=== PATIENT | female | born 1990 | race Caucasian/White ===

== ENCOUNTER 2017-05-27 18:31 | Observation (INO) | payer OTHER ==
--- NOTE | 2017-05-27 19:32 | EDPHY ---
H & P Time Seen by Provider: 05/27/17 18:40 HPI/ROS: CHIEF COMPLAINT: Abdominal pain HISTORY OF PRESENT ILLNESS: 27-year-old female presents to the emergency department with onset of abdominal pain 2 days ago. She states initially she was feeling bloated had generalized mild diffuse pain and then today started localizing in the right lower quadrant. She feels that the pain is getting worse. No nausea or vomiting. No urinary symptoms. No back pain. No reported trauma. No chest pain or difficulty breathing. Her last menstrual period was 2 weeks ago and she denies . She does not take oral contraceptive pills. REVIEW OF SYSTEMS: Constitutional: No fever, no chills. Eyes: No double or blurry vision. ENT: No sore throat. Respiratory: No cough, no shortness of breath. Cardiac: No chest pain. Gastrointestinal: Abdominal pain as above. No vomiting or diarrhea. Genitourinary: No dysuria. Musculoskeletal: No neck or back pain. Skin: No rashes. Neurological: No headache. Past Medical/Surgical History: Negative Social History: Single Smoking Status: Never smoked Physical Exam: General Appearance: Alert, no distress. Tearful. Afebrile. Eyes: Pupils equal and round. Extraocular motions are all intact. ENT: Mouth: Mucous membranes moist. Respiratory: No wheezing, rhonchi, or rales, lungs are clear to auscultation. Cardiovascular: Regular rate and rhythm. Gastrointestinal: Abdomen is soft. She has mild tenderness with palpation in her right lower quadrant. She has no rebound, guarding or masses noted. No CVA tenderness bilaterally. Neurological: Alert and oriented x 3, cranial nerves II through XII grossly intact Skin: Warm and dry, no rashes. Musculoskeletal: Nontender to palpate along the cervical, thoracic or lumbar spine. Neck is supple. Extremities: Full range of motion and no peripheral edema. Psychiatric: Patient is oriented X 3, there is no agitation. Constitutional: Initial Vital Signs Temperature (C) 36.9 C 05/27/17 18:34 Heart Rate 88 05/27/17 18:34 Respiratory Rate 18 05/27/17 18:34 Blood Pressure 96/63 L 05/27/17 18:34 O2 Sat (%) 100 05/27/17 18:34 O2 Delivery Mode Room Air Allergies/Adverse Reactions: Penicillins Allergy (Verified 05/27/17 18:36) Home Medications: Medication Instructions Recorded NK [No Known Home Meds] 05/27/17 Medical Decision Making - Diagnostics Imaging Results: Imaging Impressions Abdomen Ultrasound 05/27/17 19:28 Impression: Sonographic features are consistent with acute appendicitis. Findings were discussed with JUSTINA FRITZ PA-C at 20:07, on 05/27/2017. Pelvic/Renal Ultrasound 05/27/17 19:28 Impression: 1. Normal appearance of the uterus and ovaries with no torsion or adnexal mass. 2. Free fluid in the pelvis. Note: The patient also has sonographic features consistent with appendicitis with some periappendiceal free fluid. Findings were discussed with JUSTINA FRITZ PA-C at 20:14, on 05/27/2017. Imaging: Discussed imaging studies w/ housecalls nurse Radiologist ED Course/Re-evaluation: 27-year-old female presents to the emergency department with abdominal pain. I was concerned about possible acute appendicitis versus possible ovarian cyst. Pelvic ultrasound was unremarkable. Limited abdominal ultrasound revealed enlarged appendix measuring 12 mm which was not compressible. Patient had a white blood cell count of just over 10,000. She was kept NPO. I spoke with the on-call general surgeon, Dr. Sears, who agreed to take this patient to the operating room. Patient was given 1 g of Invanz IV in the emergency department. She was kept NPO. Differential Diagnosis: Including but not limited to acute appendicitis, ovarian cyst, ovarian torsion, urinary tract infection, pyelonephritis, kidney stone - Data Points Laboratory Results: Laboratory Results 05/27/17 19:25 05/27/17 19:25 05/27/17 05/27/17 05/27/17 19:25 19:25 19:25 WBC RBC Hgb Hct MCV MCH MCHC RDW Plt Count MPV Neut % (Auto) Lymph % (Auto) [place] % (Auto) Eos % (Auto) Baso % (Auto) Nucleat RBC Rel Count Absolute Neuts (auto) Absolute Lymphs (auto) Absolute Monos (auto) Absolute Eos (auto) Absolute Basos (auto) Absolute Nucleated RBC Immature Gran % Immature Gran # Sodium 145 mEq/L H mEq/L (134-144) Potassium 4.3 mEq/L mEq/L (3.5-5.2) Chloride 106 mEq/L mEq/L (97-110) Carbon Dioxide 25 mEq/l mEq/l (22-31) Anion Gap 14 mEq/L mEq/L (8-16) BUN 10 mg/dL mg/dL (7-23) Creatinine 0.7 mg/dL mg/dL (0.6-1.0) Estimated GFR > 60 Glucose 84 mg/dL mg/dL (70-100) Calcium 9.4 mg/dL mg/dL (8.5-10.4) Beta HCG, Qual NEGATIVE Urine Color YELLOW Urine Appearance HAZY Urine pH 6.0 (5.0-7.5) Ur Specific [place] 1.021 (1.002-1.030) Urine Protein NEGATIVE (NEGATIVE) Urine Ketones TRACE H (NEGATIVE) Urine Blood NEGATIVE (NEGATIVE) Urine Nitrate NEGATIVE (NEGATIVE) Urine Bilirubin NEGATIVE (NEGATIVE) Urine Urobilinogen NEGATIVE EU EU (0.2-1.0) Ur Leukocyte Esterase NEGATIVE (NEGATIVE) Urine RBC 1-3 /hpf /hpf (0-3) Urine WBC 1-3 /hpf /hpf (0-3) Ur Epithelial Cells TRACE /lpf /lpf (NONE-1+) Urine Mucus 3+ /lpf H /lpf (NONE-1+) Urine Glucose NEGATIVE (NEGATIVE) 05/27/17 19:25 WBC 10.83 10^3/uL H 10^3/uL (3.80-9.50) RBC 4.33 10^6/uL 10^6/uL (4.18-5.33) Hgb 14.2 g/dL g/dL (12.6-16.3) Hct 40.1 % % (38.0-47.0) MCV 92.6 fL fL (81.5-99.8) MCH 32.8 pg pg (27.9-34.1) MCHC 35.4 g/dL g/dL (32.4-36.7) RDW 11.9 % % (11.5-15.2) Plt Count 232 10^3/uL 10^3/uL (150-400) MPV 10.2 fL fL (8.7-11.7) Neut % (Auto) 68.1 % % (39.3-74.2) Lymph % (Auto) 22.1 % % (15.0-45.0) [place] % (Auto) 8.2 % % (4.5-13.0) Eos % (Auto) 1.0 % % (0.6-7.6) Baso % (Auto) 0.3 % % (0.3-1.7) Nucleat RBC Rel Count 0.0 % % (0.0-0.2) Absolute Neuts (auto) 7.38 10^3/uL H 10^3/uL (1.70-6.50) Absolute Lymphs (auto) 2.39 10^3/uL 10^3/uL (1.00-3.00) Absolute Monos (auto) 0.89 10^3/uL H 10^3/uL (0.30-0.80) Absolute Eos (auto) 0.11 10^3/uL 10^3/uL (0.03-0.40) Absolute Basos (auto) 0.03 10^3/uL 10^3/uL (0.02-0.10) Absolute Nucleated RBC 0.00 10^3/uL 10^3/uL (0-0.01) Immature Gran % 0.3 % % (0.0-1.1) Immature Gran # 0.03 10^3/uL 10^3/uL (0.00-0.10) Sodium Potassium Chloride Carbon Dioxide Anion Gap BUN Creatinine Estimated GFR Glucose Calcium Beta HCG, Qual Urine Color Urine Appearance Urine pH Ur Specific [place] Urine Protein Urine Ketones Urine Blood Urine Nitrate Urine Bilirubin Urine Urobilinogen Ur Leukocyte Esterase Urine RBC Urine WBC Ur Epithelial Cells Urine Mucus Urine Glucose Medications Given: Hydrocodone Bitart/Acetaminophen ([place] 5/325) 1 - 2 tab PO Q4HRS PRN PRN Reason: Pain, Moderate Able to Take PO Stop: 06/06/17 22:05 Last Admin: 05/28/17 01:37 Dose: 1 tab Potassium Chloride/Dextrose/Sod Cl (D5w 1/2 Ns W/ 20 Kcl/L) 1,000 mls @ 100 mls /hr IV CONT TOSHIA Stop: 11/23/17 22:14 Last Admin: 05/27/17 23:01 Dose: 1,000 mls Ketorolac Tromethamine (Toradol) 15 mg IVP Q6HRS TOSHIA Stop: 06/02/17 00:00 Last Admin: 05/27/17 23:30 Dose: Not Given Discontinued Medications Bupivacaine HCl (Sensorcaine 0.25% Sdv) Confirm Administered Dose 30 ml .ROUTE .STK-MED ONE Stop: 05/27/17 21:00 Last Admin: 05/27/17 21:49 Dose: 20 ml Epinephrine HCl (Epinephrine) Confirm Administered Dose 1 mg .ROUTE .STK-MED ONE Stop: 05/27/17 21:00 Last Admin: 05/27/17 21:46 Dose: 0.125 mg Fentanyl (Sublimaze) 75 mcg IVP EDNOW ONE Stop: 05/27/17 19:41 Last Admin: 05/27/17 20:05 Dose: 75 mcg Fentanyl (Sublimaze) 25 - 100 mcg IVP Q5M PRN PRN Reason: PACU, IMMEDIATE Pain control Stop: 05/27/17 22:35 Last Admin: 05/27/17 22:40 Dose: 50 mcg Sodium Chloride (Ns) 1,000 mls @ 0 mls/hr IV EDNOW ONE; Wide Open PRN Reason: Protocol Stop: 05/27/17 19:41 Last Admin: 05/27/17 20:06 Dose: 1,000 mls Ertapenem 1 gm/ Sodium (Chloride) 100 mls @ 200 mls/hr IV EDNOW ONE PRN Reason: Protocol Stop: 05/27/17 20:44 Last Admin: 05/27/17 20:26 Dose: 100 mls Lorazepam (Ativan Injection) 1 mg IVP ONCE ONE Stop: 05/28/17 01:46 Last Admin: 05/28/17 01:37 Dose: 1 mg Ondansetron HCl (Zofran) 4 mg IVP EDNOW ONE Stop: 05/27/17 19:41 Last Admin: 05/27/17 20:06 Dose: 4 mg Departure - Departure Disposition: To OP Cath/Surgery Clinical Impression: Acute appendicitis Qualifiers: Acute appendicitis type: with localized peritonitis Qualified Code(s): K35.3 - Acute appendicitis with localized peritonitis Condition: Good
[2017-05-27] MEDS ORDERED: ONDANSETRON 4 MG/2 ML VIAL IVP ONE (19:40)
[2017-05-27] MEDS ORDERED: fentaNYL 100 MCG/2 ML INJ IVP ONE (19:40)
[2017-05-27] MEDS ORDERED: NS 1,000 ML IV ONE (19:40)
[2017-05-27 19:41] LABS: % IMMATURE GRANULYOCYTES 0.3 % (0.0-1.1); ABSOLUTE IMMATURE GRANULOCYTES 0.03 10^3/uL (0.00-0.10); ADD DIFF? NO; ADD MORPH? NO; ADD SCAN? NO; ATYPICAL LYMPHOCYTE FLAG 20 (0-99); FRAGMENT RBC FLAG 0 (0-99); HEMATOCRIT 40.1 % (38.0-47.0); HEMOGLOBIN 14.2 g/dL (12.6-16.3); LEFT SHIFT FLG 0 (0-99); LIPEMIA HEMOLYSIS FLAG 90 (0-99); MEAN CELL HEMOGLOBIN 32.8 pg (27.9-34.1); MEAN CELL HEMOGLOBIN CONCENTR. 35.4 g/dL (32.4-36.7); MEAN CELL VOLUME 92.6 fL (81.5-99.8); MEAN PLATELET VOLUME 10.2 fL (8.7-11.7); PLATELET CLUMPS FLAG 0 (0-99); PLATELET COUNT 232 10^3/uL (150-400); RED BLOOD CELL COUNT 4.33 10^6/uL (4.18-5.33); RED CELL DISTRIBUTION WIDTH 11.9 % (11.5-15.2)
[2017-05-27 19:47] LABS: COLOR YELLOW; LEUKOCYTE ESTERASE,URINE NEGATIVE (NEGATIVE); NITRITE,URINE NEGATIVE (NEGATIVE)
[2017-05-27 19:55] LABS: MUCUS 3+ /lpf (NONE-1+)
[2017-05-27 19:58] LABS: ANION GAP 14 mEq/L (8-16); CALCIUM 9.4 mg/dL (8.5-10.4); CARBON DIOXIDE 25 mEq/l (22-31); CHLORIDE 106 mEq/L (97-110); CREATININE 0.7 mg/dL (0.6-1.0); GLOMERULAR FILTRATION RATE > 60; GLUCOSE 84 mg/dL (70-100); POTASSIUM 4.3 mEq/L (3.5-5.2); SODIUM 145 mEq/L (134-144)
[2017-05-27] MEDS ORDERED: ONDANSETRON 4 MG/2 ML VIAL ONE ×2 (20:04→21:04)
[2017-05-27] MEDS ORDERED: fentaNYL 100 MCG/2 ML INJ ONE ×5 (20:04→22:38)
[2017-05-27] MEDS ORDERED: ERTAPENEM 1 GM in NS 100 ML IV ONE (20:15)
[2017-05-27] MEDS ORDERED: PROPOFOL 200 MG/20 ML VIAL ONE (20:58)
--- NOTE | 2017-05-27 20:58 | PDGENHP ---
History and Physical - Chief Complaint Abdominal pain - History of Present Illness Otherwise healthy 27yo F presents to the ED with pain in abbey abdomen since evening. Pain has waxed and waned since then but worsened today and also relocated to the RLQ. It is sharp, 7/10, non-radiating and worse with movement. It is better with IV narcotics. She denies fevers but does endorse having chills History Information - Allergies/Home Medication List Allergies/Adverse Reactions: Penicillins Allergy (Verified 05/27/17 18:36) Home Medications: NK [No Known Home Meds] 05/27/17 [Last Taken Unknown] I have personally reviewed and updated: family history, medical history, social history, surgical history - Past Medical History Additional medical history: anxiety - Surgical History Additional surgical history: wisdom teeth removal - Family History Positive for: non-pertinent - Social History Smoking Status: Never smoked Alcohol Use: Occasionally Drug Use: Marijuana Review of Systems Review of Systems: ROS: 10pt was reviewed & negative except for what was stated in HPI & below Physical Exam Physical Exam: Temp Pulse Resp BP Pulse Ox 36.7 C 74 16 120/86 H 97 05/27/17 20:40 05/27/17 20:40 05/27/17 20:40 05/27/17 20:40 05/27/17 20:40 Constitutional: no apparent distress, appears nourished Eyes: PERRL, anicteric sclera Ears, Nose, Mouth, Throat: moist mucous membranes, hearing normal Cardiovascular: regular rate and rhythym, no murmur, rub, or gallop Respiratory: no respiratory distress, no rales or rhonchi Gastrointestinal: normoactive bowel sounds, other (TTP in the RLQ at [facility]) Skin: warm, normal color Musculoskeletal: full muscle strength, no muscle tenderness Neurologic: AAOx3, sensation intact bilaterally Psychiatric: interacting appropriately, not anxious Lymph, Heme, Immunologic: no cervical LAD, no supraclavicular LAD Lab Data & Imaging Review 05/27/17 19:25 05/27/17 19:25 WBC 10.83 10^3/uL (3.80-9.50) H 05/27/17 19:25 RBC 4.33 10^6/uL (4.18-5.33) 05/27/17 19:25 Hgb 14.2 g/dL (12.6-16.3) 05/27/17 19:25 Hct 40.1 % (38.0-47.0) 05/27/17 19:25 MCV 92.6 fL (81.5-99.8) 05/27/17 19:25 MCH 32.8 pg (27.9-34.1) 05/27/17 19: MCHC 35.4 g/dL (32.4-36.7) 05/27/17 19:25 RDW 11.9 % (11.5-15.2) 05/27/17 19:25 Plt Count 232 10^3/uL (150-400) 05/27/17: MPV 10.2 fL (8.7-11.7) 05/27/17 19:25 Neut % (Auto) 68.1 % (39.3-74.2) 05/27/17: Lymph % (Auto) 22.1 % (15.0-45.0) 05/27/17 19:25 [place] % (Auto) 8.2 % (4.5-13.0) 05/27/17 19:25 Eos % (Auto) 1.0 % (0.6-7.6) 05/27/17 19: Baso % (Auto) 0.3 % (0.3-1.7) 05/27/17 19:25 Nucleat RBC Rel Count 0.0 % (0.0-0.2) 05/27/17 19: Absolute Neuts (auto) 7.38 10^3/uL (1.70-6.50) H 05/27/17 19:25 Absolute Lymphs (auto) 2.39 10^3/uL (1.00-3.00) 05/27/17 19:25 Absolute Monos (auto) 0.89 10^3/uL (0.30-0.80) H 05/27/17 19:25 Absolute Eos (auto) 0.11 10^3/uL (0.03-0.40) 05/27/17 19:25 Absolute Basos (auto) 0.03 10^3/uL (0.02-0.10) 05/27/17 19:25 Absolute Nucleated RBC 0.00 10^3/uL (0-0.01) 05/27/17 19:25 Immature Gran % 0.3 % (0.0-1.1) 05/27/17 19:25 Immature Gran # 0.03 10^3/uL (0.00-0.10) 05/27/17 19:25 Sodium 145 mEq/L (134-144) H 05/27/17 19:25 Potassium 4.3 mEq/L (3.5-5.2) 05/27/17 19:25 Chloride 106 mEq/L (97-110) 05/27/17 19:25 Carbon Dioxide 25 mEq/l (22-31) 05/27/17 19:25 Anion Gap 14 mEq/L (8-16) 05/27/17 19:25 BUN 10 mg/dL (7-23) 05/27/17 19:25 Creatinine 0.7 mg/dL (0.6-1.0) 05/27/17 19:25 Estimated GFR > 60 05/27/17 19:25 Glucose 84 mg/dL (70-100) 05/27/17 19:25 Calcium 9.4 mg/dL (8.5-10.4) 05/27/17 19:25 Beta HCG, Qual NEGATIVE 05/27/17 19:25 Urine Color YELLOW 05/27/17 19:25 Urine Appearance HAZY 05/27/17 19:25 Urine pH 6.0 (5.0-7.5) 05/27/17 19:25 Ur Specific [place] 1.021 (1.002-1.030) 05/27/17 19:25 Urine Protein NEGATIVE (NEGATIVE) 05/27/17 19:25 Urine Ketones TRACE (NEGATIVE) H 05/27/17 19:25 Urine Blood NEGATIVE (NEGATIVE) 05/27/17 19:25 Urine Nitrate NEGATIVE (NEGATIVE) 05/27/17 19:25 Urine Bilirubin NEGATIVE (NEGATIVE) 05/27/17 19:25 Urine Urobilinogen NEGATIVE EU (0.2-1.0) 05/27/17 19:25 Ur Leukocyte Esterase NEGATIVE (NEGATIVE) 05/27/17 19:25 Urine RBC 1-3 /hpf (0-3) 05/27/17 19:25 Urine WBC 1-3 /hpf (0-3) 10/21/17 19:25 Ur Epithelial Cells TRACE /lpf (NONE-1+) 05/27/17 19:25 Urine Mucus 3+ /lpf (NONE-1+) H 05/27/17 19:25 Urine Glucose NEGATIVE (NEGATIVE) 05/27/17 19:25 Visualized and Interpreted imaging results: Yes Interpretation: abd us: acute appendicitis (images personally reviewed) Assessment & Plan Assessment: 27yo F Acute appendicitis Plan: IV abx in ED, to OR for lap appy. risks, benefits and alternatives discussed.
[2017-05-27] MEDS ORDERED: BUPIVACAINE 0.25% 30 ML SDV ONE (20:59)
[2017-05-27] MEDS ORDERED: ROCURONIUM 50 MG/5 ML VIAL ONE (21:02)
[2017-05-27] MEDS ORDERED: SUCCINYLCHOLINE CHLORIDE*ANESTHESIA ONLY*200 MG/10 ML SYR IVP ONE (21:02)
[2017-05-27] MEDS ORDERED: DEXAMETHASONE 4 MG/ML VIAL ONE (21:04)
[2017-05-27] MEDS ORDERED: MIDAZOLAM 2 MG/2 ML VIAL ONE (21:05)
--- NOTE | 2017-05-27 21:21 | PDANEPAE ---
ANE History of Present Illness Acute appendicitis ANE Past Medical History - Cardiovascular History Hx Hypertension: No Hx Arrhythmias: No Hx Chest Pain: No Hx Coronary Artery / Peripheral Vascular Disease: No Hx CHF / Valvular Disease: No Hx Palpitations: No - Pulmonary History Hx COPD: No Hx Asthma/Reactive Airway Disease: No Hx Recent Upper Respiratory Infection: No Hx Oxygen in Use at Home: No Hx Sleep Apnea: No - Endocrine History Hx Diabetes: No Obesity: no ANE Review of Systems Review of systems is: negative Review of Systems: - Exercise capacity Exercise capacity: >=4 METS ANE Patient History - Allergies Allergies/Adverse Reactions: Penicillins Allergy (Verified 05/27/17 18:36) - Home Medications Home medications: home medication list seen and reviewed Home Medications: NK [No Known Home Meds] 05/27/17 [Last Taken Unknown] - NPO status NPO Since - Liquids (Date): 05/27/17 NPO Since - Liquids (Time): 19:00 NPO Since - Solids (Date): 05/27/17 NPO Since - Solids (Time): 15:00 - Anes Hx Anes Hx: no prior problems - Smoking Hx Smoking Status: Never smoked - Alcohol Use Alcohol Use: Occasionally ANE Labs/Vital Signs - Labs Result Diagrams: 05/27/17 19:25 05/27/17 19:25 - Vital Signs Blood Pressure: 120/86 Heart Rate: 74 Respiratory Rate: 16 O2 Sat (%): 97 Height: 170.18 cm Weight: 54.431 kg ANE Physical Exam - Airway Neck exam: FROM Mallampati Score: Class 1 Mouth exam: normal dental/mouth exam - Pulmonary Pulmonary: no respiratory distress - Cardiovascular Cardiovascular: regular rate and rhythym - ASA Status ASA Status: I, E ANE Anesthesia Plan Anesthesia Plan: general endotracheal anesthesia Urgent/Emergent Case: Uteezequiel leachneeta completed preop but documented later for safe timely pt care
[2017-05-27] MEDS ORDERED: SUGAMMADEX SODIUM 200 MG/2 ML VIAL IVP ONE (21:33)
[2017-05-27] MEDS ORDERED: LIDOCAINE 2% 5 ML SDV ONE (21:33)
[2017-05-27] MEDS ORDERED: ACETAMINOPHEN 500 MG TAB PO PRN (21:35)
[2017-05-27] MEDS ORDERED: NALOXONE HCL 0.4 MG/ML INJ IVP PRN (21:35)
[2017-05-27] MEDS ORDERED: OXYCODONE/APAP 5/325 TAB PO PRN (21:35)
[2017-05-27] MEDS ORDERED: ONDANSETRON 4 MG/2 ML VIAL IVP PRN ×2 (21:35→22:06)
[2017-05-27] MEDS ORDERED: METOCLOPRAMIDE 10 MG/2 ML VIAL IVP PRN (21:35)
[2017-05-27] MEDS ORDERED: PROMETHAZINE HCL 25 MG/ML INJ IVP PRN (21:35)
[2017-05-27] MEDS ORDERED: LR 500 ML IV PRN (21:35)
[2017-05-27] MEDS ORDERED: HYDROmorphONE/DILAUDID 1 MG/ML INJ IVP PRN ×2 (21:35→22:06)
[2017-05-27] MEDS ORDERED: ALBUTEROL 3 ML DEYVIAL IH PRN (21:35)
[2017-05-27] MEDS ORDERED: KETOROLAC 30 MG/1 ML SDV ONE (21:37)
--- NOTE | 2017-05-27 22:06 | POSTOPPROG ---
Post Op Note Date of Operation: 05/27/17 Surgeon: Thony Sears Anesthesiologist: Valente Anesthesia: GET(General Endotracheal) Pre-op Diagnosis: appendicitis Post-op Diagnosis: same Procedure: Lap appy Findings: Acute non perforatd appendicitis Inf/Abcess present in the surg proc area at time of surgery?: No EBL: Minimal Specimen(s): appendix
--- NOTE | 2017-05-27 22:09 | POSTANESTH ---
Post Anesthetic Evaluation Cardiovascular Status: Normal, Stable Respiratory Status: Normal, Stable Level of Consciousness/Mental Status: Can Participate in Eval Pain Control: Adequate, Prn Tx Ordered Nausea/Vomiting Control: Adequate, Prn Tx Ordered Complications Possibly Related to Anesthesia: None Noted
[2017-05-27] MEDS ORDERED: D5W 1/2 NS W/ 20 KCl/L 1,000 ML IV SCH (22:15)
[2017-05-27] MEDS: fentaNYL 100 MCG/2 ML INJ IVP PRN ×4 (22:17→22:40)
[2017-05-27] MEDS: HYDROCODONE/APAP 5/325 TAB PO PRN (23:17)
[2017-05-27] MEDS: KETOROLAC 15 MG/1 ML SDV IVP SCH (23:30)
[2017-05-28] MEDS: HYDROCODONE/APAP 5/325 TAB PO PRN (01:37)
[2017-05-28] MEDS ORDERED: LORazepam 2 MG/ML INJ IVP ONE (01:45)
--- NOTE | 2017-05-28 05:05 | GOP ---
[f rep st] OPERATIVE REPORT DATE OF OPERATION: SURGEON: Thony Sears MD GASTROENTEROLOGY NURSE: None. ANESTHESIA: General endotracheal. ANESTHESIOLOGIST: Dr. Victor. PREOPERATIVE DIAGNOSIS: Appendicitis. POSTOPERATIVE DIAGNOSIS: Appendicitis. PROCEDURE PERFORMED: Laparoscopic appendectomy. FINDINGS: Acute indurated nonperforated appendicitis. SPECIMENS: Appendix. ESTIMATED BLOOD LOSS: 5 cc. DESCRIPTION OF PROCEDURE: The patient was greeted in the preoperative suite. Once again, risks, benefits, and alternatives were discussed. Consent was signed. She was then brought back to the operative suite, placed on the OR table in supine position. After all anesthesia machines, including SCDs, were on and functioning, a World Health [employer] time-out was performed. After successful induction of general anesthesia, antibiotics were given. The patient 's abdomen was then prepped and draped in typical sterile fashion. I entered the abdomen via an umbilical cutdown through which the Veress needle was passed and pneumoperitoneum to 15 mmHg of CO2 was achieved and well tolerated by the patient. Through this, I inserted a 5 mm Visiport. Once successfully in the abdomen, I inserted 2 additional ports, one 10 mm in the suprapubic and an additional 5 mm in the left lower quadrant, both under direct visualization. I identified the appendix by tracing the taeniae inferiorly. It was inflamed and indurated, but not frankly perforated. I created a window at the base of the appendix and successfully amputated it from the cecal base using a single fire of the Endo-PHILLIP blue load stapler. Once this was done successfully, I amputated the mesoappendix with a single fire of the white load. It was then placed in an EndoCatch bag and removed. My staple lines were then inspected which were noted to be grossly hemostatic. I irrigated the patient's right upper quadrant, right lower quadrant and pelvis with sterile saline noting clear effluent in the suction canister. I identified no other significant pathology. I then infiltrated local anesthesia into all port sites which were then removed under direct visualization. I closed my suprapubic port site with an interrupted 0 Vicryl stitch noting excellent fascial reapproximation. The skin was then closed with Monocryl over which Dermabond was placed. The patient was then extubated in the operative suite and taken to the PACU in satisfactory condition. DRAINS: None. COUNTS: All counts were reported as correct x2. /[id number]/MODL MTDD
[2017-05-28] MEDS: KETOROLAC 15 MG/1 ML SDV IVP SCH (05:12)
[2017-05-28 08:32] VITALS: BP 100/55; PULSE 73; RESP 18; TEMP 98.1; O2SAT 95
--- NOTE | 2017-05-28 09:14 | PDDCSUM ---
Discharge Summary Discharge Summary: DISCHARGE SUMMARY Date of Admission May 27 Date of Discharge May 28 DISCHARGE DIAGNOSES -acute appendicitis HOSPITAL COURSE The patient was admitted from the ED and taken to the operating room where they underwent an uneventful laparoscopic appendectomy for acute appendicitis. They were subsequently taken to the PACU and then the general medical floor. The hospital course was uneventful, their diet was advanced to a regular diet which was well tolerated and their pain was well controlled. They were discharged home in stable condition on May 28 DISCHARGE MEDICATIONS [place] as needed for pain DISPOSITION Home FOLLOW UP Follow up with me in the office in 10-14 days for a general post-operative visit
[2017-05-28] MEDS ORDERED: IBUPROFEN 600 MG TAB PO SCH (14:00)
--- NOTE | 2017-05-28 18:52 | ASDISCHSUM ---
Discharge Information Plan Status:Home with No Needs Medically Cleared to Leave:05/28/2017 Discharge Date:05/28/2017 11:08 AM CM D/C Disposition:Home, Routine, Self-Care ADT D/C Disposition:Home, Routine, Self-Care Projected Discharge Date:05/28/2017 10:00 AM Transportation at D/C:Friend Discharge Delay Reason: Follow-Up Date:05/28/2017 10:00 AM Discharge Slot:1 - 8:01 am - 12:00 noon Final Diagnosis:Acute appendicitis Placement Information Patient Contact Information Contact Name:WINSTON Relationship:Other Address: Work Phone: City: [facility] Phone: State/Zip Code: Email: Financial Information Financial Class:HMO and PPO Plans Primary Plan Desc:[employer] PPO POS HMO Primary Plan Number:[id number] Secondary Plan Desc: Secondary Plan Number: Assessment Information BC CM Progress Note CM Note CM Note Notes: 27 year old female admitted for abdominal pain-appendicitis. Had surgery and discharged. No other needs. Date Signed: 05/28/2017 06:50 PM Electronically Signed By:Naty Arevalo LCSW Intervention Information
== END 2017-05-28 11:08 | disposition home or self-care (01) ==
LOC: F3N 22:48
PROVIDERS: ADMIT Surgery; ATTEND Surgery
PROC: 0DTJ4ZZ Resection of Appendix, Percutaneous Endoscopic Approach (ICD-10-PCS; principal; 2017-05-27 21:00)
DX: K35.80 Unspecified acute appendicitis (principal); Z88.0 Allergy status to penicillin
CPT/HCPCS: 44970; 76705; 76856; G0378; 96365; J0171; J0330; J1100; J1335; J1885; J2060; J2250; J2405; J2704; J3010

== ENCOUNTER 2018-10-13 09:16 | Inpatient (IN) | payer MEDICAID, OTHER ==
--- NOTE | 2018-10-13 09:48 | EDPHY ---
H & P Stated Complaint: Multiple; sob continues, dysuria, R upper abd/flank soreness, anxiety Time Seen by Provider: 10/13/18 09:48 HPI/ROS: HPI: This is a 28-year-old female who presents with Chief Complaint: Multiple; sob continues, dysuria, R upper abd/flank soreness, anxiety Location: Body Quality: Dyspnea, abdominal soreness, anxiety Duration: Several days Signs and Symptoms: + subjective fever, no nausea, no vomiting, no diarrhea, no urinary symptoms, no chest pain, + shortness of breath, no wheezing, no cough, no sore throat, no neck stiffness, no joint pain, no swollen glands, no ear pain , no rash Timing: Acute, constant Severity: Moderate Context: Patient lives in [place], [place] but went to [place] last week for an interview and was diagnosed with bronchitis and hospitalized. Patient reports that she is on day 5 of 7 of ciprofloxacin and completed 5 days of oral steroids yesterday. She presents today with multiple complaints including shortness of breath continues, low-grade fevers, right lower rib and upper abdomen flank soreness that is worsened with coughing and inspiration. She also notes some burning with urination and vaginal itchiness and dryness for the last 2 weeks. Does not take oral control pills. Nonsmoker. No history of clotting disorders in the family. Patient reports that she was to be seen by her primary care provider at the [facility] yesterday but she had a migraine and did not attend her appointment. Modifying Factors: See above Comment: ROS: A comprehensive 10 system review of systems is otherwise negative aside from elements mentioned in the history of present illness. MEDICAL/SURGICAL/SOCIAL HISTORY: Medical history: asthma, anxiety, migraines, UTI's. LMP 1-7 days ago. Surgical history: Denies Social history: Student. Family history noncontributory. CONSTITUTIONAL: Extremely anxious well-appearing young adult white female, grabbing right lower chest, awake and alert, no obvious distress HEENT: Atraumatic and normocephalic, PERRL, EOMI. Nares patent; no rhinorrhea; no nasal mucosal edema. Tympanic membranes clear. Oropharynx clear, no exudate and moist pink mucosa. Airway patent. No lymphadenopathy. No meningismus. Cardiovascular: Normal S1/S2, regular rate, regular rhythm, without murmur rub or gallop. PULMONARY/CHEST: Symmetrical and moderate reproducible right lateral lower rib tenderness. Diminished on the left; poor air movement. No accessory muscle usage, shallow inspiratory effort ABDOMEN: Soft, nondistended, nontender, no rebound, no guarding, no peritoneal signs, no masses or organomegaly. No CVAT. EXTREMITIES: 2/2 pulses, strength 5/5, no deformities, no clubbing, no cyanosis or edema. Negative Homans sign. No palpable cords. No varicose veins. NEUROLOGICAL: no focal neuro deficits. GCS 15. SKIN: Warm and dry, no erythema. no rash. Good capillary refill. Source: Patient Exam Limitations: No limitations - Personal History LMP (Females 10-55): 1-7 Days Ago - Medical/Surgical History Hx Asthma: Yes Hx Chronic Respiratory Disease: No Hx Diabetes: No Hx Cardiac Disease: No Hx Renal Disease: No Hx Cirrhosis: No Hx Alcoholism: No Hx HIV/AIDS: No Hx Splenectomy or Spleen Trauma: No Other PMH: asthma, anxiety, migraines, UTI's - Social History Smoking Status: Never smoked Constitutional: Initial Vital Signs Temperature (C) 36.5 C 10/13/18 09:26 Heart Rate 89 10/13/18 09:26 Respiratory Rate 18 10/13/18 09:26 Blood Pressure 112/80 10/13/18 09:26 O2 Sat (%) 90 L 10/13/18 09:26 O2 Delivery Mode Room Air O2 (L/minute) 2 Allergies/Adverse Reactions: Penicillins Allergy (Verified 10/13/18 09:25) Home Medications: Medication Instructions Recorded Albuterol Sulfate [Albuterol 2 puffs IH QID PRN 10/13/18 Sulfate Hfa] Benzonatate [Tessalon Pearles (RX)] 100 mg PO TID PRN 10/13/18 Ciprofloxacin [Cipro] 500 mg PO BID 10/13/18 Medical Decision Making - Diagnostics Imaging Results: Imaging Impressions Chest X-Ray 10/13/18 10:09 Impression: Bilateral pleural effusions, large left and small right. Consider obtaining chest CT with IV contrast for further evaluation. Chest/Thorax CTA 10/13/18 11:37 Impression: 1. No pulmonary embolic disease. 2. Bilateral pleural effusions of undetermined etiology, with adjacent compression atelectasis. Pleurisy? Results discussed with Glory Santos at 12:54 PM. General information for patients regarding this examination can be found at [email or web address]. If you have questions or comments about this report, please contact me at (hospital) or [phone] (cell). ED Course/Re-evaluation: Vital signs reviewed and show O2 sats 90% on room air placed on oxygen 2 L continuous nasal cannula. Placed on security monitor. IV access, laboratory studies, urinalysis, chest x-ray ordered Patient given 1 L normal saline, IV Toradol 30 mg and IV promethazine 12.5 mg 1135: Chest x-ray my read shows left moderate pleural effusion and right mild pleural effusion. 1138: 2 labs reviewed. WBC 27 K with left shift, H&H 12.3/37.8, D-dimer 5.57 CTA chest ordered to evaluate for pulmonary embolism 1215: Notified by RN that patient requesting medication she is unable to lie flat for the CTA chest. IV Ativan 2 mg given. 1256: Called by Radiology, Dr. Lpoez, who reports that CT chest shows no pulmonary embolism but does show large left pleural effusion and small right pleural effusion. Patient will likely require thoracentesis. Urinalysis shows trace LE, 15-25 WBCs and trace bacteria-equivocal; urine culture ordered Patient has been on a fluoroquinolone. IV Rocephin and Zithromax ordered 1300: ED decision to consult hospitalist for bilateral pleural effusion, hypoxia. Spoke with Lillian, kindly agrees to admit patient under the care of Dr. Bone. This patient was seen under the supervision of my secondary supervising physician. I evaluated care for this patient independently. Differential Diagnosis: Shortness of breath including but not limited to pulmonary infectious process, COPD, asthma, pulmonary embolus and congestive heart failure. - Data Points Laboratory Results: Laboratory Results 10/13/18 10:20 10/13/18 10:20 10/13/18 10/13/18 10/13/18 12:04 10:20 10:20 WBC RBC Hgb Hct MCV MCH MCHC RDW Plt Count MPV Neut % (Auto) Lymph % (Auto) [place] % (Auto) Eos % (Auto) Baso % (Auto) Nucleat RBC Rel Count Absolute Neuts (auto) Absolute Lymphs (auto) Absolute Monos (auto) Absolute Eos (auto) Absolute Basos (auto) Absolute Nucleated RBC Immature Gran % Seg Neutrophils % Band Neutrophils % Lymphocytes % Monocytes % Eosinophils % Basophils % Metamyelocytes % Myelocytes % Promyelocytes % Blast Cells % Immature Gran # Absolute Seg Neuts Absolute Band Neuts Absolute Lymphocytes Absolute Monocytes Absolute Eosinophils Absolute Basophils Absolute Metamyelocyte Absolute Myelocytes Absolute Promyelocytes Absolute Plasma Cells Nucleated RBCs Absolute Blast Cells Plasma Cells % Toxic Granulation Platelet Estimate Polychromasia Oval Macrocytes D-Dimer Sodium 136 mEq/L mEq/L (135-145) Potassium 3.9 mEq/L mEq/L (3.5-5.2) Chloride 104 mEq/L mEq/L (97-110) Carbon Dioxide 25 mEq/l mEq/l (22-31) Anion Gap 7 mEq/L mEq/L (6-14) BUN 17 mg/dL mg/dL (7-23) Creatinine 0.6 mg/dL mg/dL (0.6-1.0) Estimated GFR > 60 Glucose 83 mg/dL mg/dL (70-100) Calcium 7.9 mg/dL L mg/dL (8.5-10.4) Total Bilirubin 0.9 mg/dL mg/dL (0.1-1.4) Conjugated Bilirubin 0.7 mg/dL H mg/dL (0.0-0.5) Unconjugated Bilirubin 0.2 mg/dL mg/dL (0.0-1.1) AST 31 IU/L IU/L (14-46) ALT 52 IU/L IU/L (9-52) Alkaline Phosphatase 209 IU/L H IU/L (38-126) Creatine Kinase < 20 IU/L IU/L (0-156) Total Protein 5.8 g/dL L g/dL (6.3-8.2) Albumin 2.6 g/dL L g/dL (3.5-5.0) Lipase 119 IU/L IU/L (23-300) Beta HCG, Qual NEGATIVE Urine Color YELLOW Urine Appearance CLEAR Urine pH 6.0 (5.0-7.5) Ur Specific [place] 1.012 (1.002-1.030) Urine Protein NEGATIVE (NEGATIVE) Urine Ketones NEGATIVE (NEGATIVE) Urine Blood 2+ H (NEGATIVE) Urine Nitrate NEGATIVE (NEGATIVE) Urine Bilirubin NEGATIVE (NEGATIVE) Urine Urobilinogen NEGATIVE EU EU (0.2-1.0) Ur Leukocyte Esterase TRACE H (NEGATIVE) Urine RBC 5-10 /hpf H /hpf (0-3) Urine WBC 15-25 /hpf H /hpf (0-3) Ur Epithelial Cells 2+ /lpf H /lpf (NONE-1+) Urine Bacteria TRACE /hpf H /hpf (NONE SEEN) Urine Mucus TRACE /lpf /lpf (NONE-1+) Urine Glucose NEGATIVE (NEGATIVE) 10/13/18 10/13/18 10:20 10:20 WBC 26.47 10^3/uL H 10^3/uL (3.80-9.50) RBC 3.98 10^6/uL L 10^6/uL (4.18-5.33) Hgb 12.3 g/dL L g/dL (12.6-16.3) Hct 37.8 % L % (38.0-47.0) MCV 95.0 fL fL (81.5-99.8) MCH 30.9 pg pg (27.9-34.1) MCHC 32.5 g/dL g/dL (32.4-36.7) RDW 15.0 % % (11.5-15.2) Plt Count 317 10^3/uL 10^3/uL (150-400) MPV 9.7 fL fL (8.7-11.7) Neut % (Auto) Not Reported Lymph % (Auto) Not Reported [place] % (Auto) Not Reported Eos % (Auto) Not Reported Baso % (Auto) Not Reported Nucleat RBC Rel Count Not Reported Absolute Neuts (auto) Not Reported Absolute Lymphs (auto) Not Reported Absolute Monos (auto) Not Reported Absolute Eos (auto) Not Reported Absolute Basos (auto) Not Reported Absolute Nucleated RBC Not Reported Immature Gran % Not Reported Seg Neutrophils % 74.8 % % Band Neutrophils % 4.1 % % Lymphocytes % 10.1 % % Monocytes % 3.0 % % Eosinophils % 1.0 % % Basophils % 0.0 % % Metamyelocytes % 4.0 % % Myelocytes % 3.0 % % Promyelocytes % 0.0 % % Blast Cells % 0.0 % % Immature Gran # Not Reported Absolute Seg Neuts 19.80 10^3/uL H 10^3/uL (1.70-6.50) Absolute Band Neuts 1.09 10^3/uL H 10^3/uL (0.00-0.70) Absolute Lymphocytes 2.67 10^3/uL 10^3/uL (1.00-3.00) Absolute Monocytes 0.79 10^3/uL 10^3/uL (0.30-0.80) Absolute Eosinophils 0.26 10^3/uL 10^3/uL (0.03-0.40) Absolute Basophils 0.00 10^3/uL L 10^3/uL (0.02-0.10) Absolute Metamyelocyte 1.06 10^3/mL H 10^3/mL (0.00-0.00) Absolute Myelocytes 0.79 10^3/mL H 10^3/mL (0.00-0.00) Absolute Promyelocytes 0.00 10^3/uL 10^3/uL (0.00-0.00) Absolute Plasma Cells 0.00 10^3/uL 10^3/uL (0.00-0.00) Nucleated RBCs 0 /100 WBC /100 WBC (0-0) Absolute Blast Cells 0.00 10^3/uL 10^3/uL (0.00-0.00) Plasma Cells % 0.0 % % Toxic Granulation PRESENT H Platelet Estimate ADEQUATE (ADEQ) Polychromasia 1+ H Oval Macrocytes 1+ H D-Dimer 5.57 ug/mLFEU H ug/mLFEU (0.00-0.50) Sodium Potassium Chloride Carbon Dioxide Anion Gap BUN Creatinine Estimated GFR Glucose Calcium Total Bilirubin Conjugated Bilirubin Unconjugated Bilirubin AST ALT Alkaline Phosphatase Creatine Kinase Total Protein Albumin Lipase Beta HCG, Qual Urine Color Urine Appearance Urine pH Ur Specific [place] Urine Protein Urine Ketones Urine Blood Urine Nitrate Urine Bilirubin Urine Urobilinogen Ur Leukocyte Esterase Urine RBC Urine WBC Ur Epithelial Cells Urine Bacteria Urine Mucus Urine Glucose Medications Given: Discontinued Medications Sodium Chloride (Ns) 1,000 mls @ 0 mls/hr IV EDNOW ONE; Wide Open PRN Reason: Protocol Stop: 10/13/18 10:09 Last Admin: 10/13/18 10:38 Dose: 1,000 mls Ketorolac Tromethamine (Toradol) 30 mg IVP EDNOW ONE Stop: 10/13/18 10:09 Last Admin: 10/13/18 10:39 Dose: 30 mg Lorazepam (Ativan Injection) 2 mg IVP EDNOW ONE Stop: 10/13/18 12:16 Last Admin: 10/13/18 12:15 Dose: 2 mg Departure - Departure Disposition: [facility] Inpatient Acute Clinical Impression: Hypoxia, Bilateral pleural effusion, Pleurisy with effusion, Dysuria Condition: Fair
[2018-10-13] MEDS ORDERED: PROMETHAZINE HCL 25 MG/ML INJ IVP ONE (10:08)
[2018-10-13] MEDS ORDERED: NS 1,000 ML IV ONE (10:08)
[2018-10-13] MEDS ORDERED: KETOROLAC 30 MG/1 ML SDV IVP ONE (10:08)
[2018-10-13 11:02] LABS: PLATELET COUNT 317 10^3/uL (150-400)
[2018-10-13 11:23] LABS: CREATINE KINASE < 20 IU/L (0-156)
[2018-10-13] MEDS ORDERED: IOPAMIDOL (ISOVUE 370) 100 ML BTL IV ONE (11:53)
[2018-10-13] MEDS ORDERED: LORazepam 2 MG/ML INJ ONE (12:14)
[2018-10-13] MEDS ORDERED: LORazepam 2 MG/ML INJ IVP ONE (12:15)
[2018-10-13] MEDS ORDERED: AZITHROMYCIN IV 500 MG in D5W 250 ML IV ONE (12:59)
[2018-10-13] MEDS ORDERED: ONDANSETRON 4 MG/2 ML VIAL IVP PRN (13:41)
[2018-10-13] MEDS ORDERED: ONDANSETRON DISINTEGRATING 4 MG TAB PO PRN (13:41)
[2018-10-13 14:21] LABS: INR 1.02 (0.83-1.16)
--- NOTE | 2018-10-13 15:55 | PDGENHP ---
History and Physical - Chief Complaint SOB, L sided rib pain - History of Present Illness Justina Casas is a 28 yo F with no significant PMHx who presents to [facility] for SOB. She reports that she was visiting [place] last week when she was aving cough, SOB, and dysuria. She was evaluated in an ED there where she was dx with UTI and Bronchitis and discharged on Cipro and Prednisone. She has complete 5/7 days of Cipro and 5/5 days of Prednisone. She had continuing dyspnea on exertion, productive cough of green/clear sputum, L and R sided rib pain, fevers so she presented to ED today. She denies chest pain, n/v, d/c, edema, palpitations, LH/dizziness. She does report improvement in dysuria since starting abx but has continued urinary urgency. History Information - Allergies/Home Medication List Allergies/Adverse Reactions: Penicillins Allergy (Verified 10/13/18 09:25) Home Medications: ALPRAZolam [Xanax 0.5 MG (*)] 0.5 mg PO DAILY PRN 10/13/18 [Last Taken Unknown] Albuterol Sulfate [Albuterol Sulfate Hfa] 2 puffs IH QID PRN 10/13/18 [Last Taken 10/12/18] Benzonatate [Tessalon Pearles (RX)] 100 mg PO TID PRN 10/13/18 [Last Taken 10/11] Ciprofloxacin [Cipro] 500 mg PO BID 10/13/18 [Last Taken 10/12/18 PM] I have personally reviewed and updated: family history, medical history, social history, surgical history - Past Medical History migraines Additional medical history: anxiety - Surgical History Reports: no pertinent surgical hx Additional surgical history: wisdom teeth removal - Family History Positive for: non-pertinent - Social History Smoking Status: Never smoked Review of Systems Review of Systems: ROS: 10pt was reviewed & negative except for what was stated in HPI & below Physical Exam Physical Exam: Temp Pulse Resp BP Pulse Ox 36.6 C 99 20 114/76 96 10/13/18 14:47 10/13/18 14:47 10/13/18 14:47 10/13/18 14:47 10/13/18 14:47 O2 (L/minute) 2 Constitutional: uncomfortable Eyes: PERRL Ears, Nose, Mouth, Throat: moist mucous membranes Cardiovascular: regular rate and rhythym Respiratory: no respiratory distress, reduced air movement Gastrointestinal: soft, non-tender abdomen Skin: warm Musculoskeletal: full muscle strength Neurologic: AAOx3 Psychiatric: interacting appropriately Lab Data & Imaging Review 10/13/18 10:20 10/13/18 10:20 WBC 26.47 10^3/uL (3.80-9.50) H 10/13/18 10:20 RBC 3.98 10^6/uL (4.18-5.33) L 10/13/18 10:20 Hgb 12.3 g/dL (12.6-16.3) L 10/13/18 10:20 Hct 37.8 % (38.0-47.0) L 10/13/18 10:20 MCV 95.0 fL (81.5-99.8) 10/13/18 10:20 MCH 30.9 pg (27.9-34.1) 10/13/18 10:20 MCHC 32.5 g/dL (32.4-36.7) 10/13/18 10:20 RDW 15.0 % (11.5-15.2) 10/13/18 10:20 Plt Count 317 10^3/uL (150-400) 10/13/18 10:20 MPV 9.7 fL (8.7-11.7) 10/13/18 10:20 Neut % (Auto) Not Reported 10/13/18 10:20 Lymph % (Auto) Not Reported 10/13/18 10:20 Rooks % (Auto) Not Reported 10/13/18 10:20 Eos % (Auto) Not Reported 10/13/18 10:20 Baso % (Auto) Not Reported 10/13/18 10:20 Nucleat RBC Rel Count Not Reported 10/13/18 10:20 Absolute Neuts (auto) Not Reported 10/13/18 10:20 Absolute Lymphs (auto) Not Reported 10/13/18 10:20 Absolute Monos (auto) Not Reported 10/13/18 10:20 Absolute Eos (auto) Not Reported 10/13/18 10:20 Absolute Basos (auto) Not Reported 10/13/18 10:20 Absolute Nucleated RBC Not Reported 10/13/18 10:20 Immature Gran % Not Reported 10/13/18 10:20 Seg Neutrophils % 74.8 % 10/13/18 10:20 Band Neutrophils % 4.1 % 10/13/18 10:20 Lymphocytes % 10.1 % 10/13/18 10:20 Monocytes % 3.0 % 10/13/18 10:20 Eosinophils % 1.0 % 10/13/18 10:20 Basophils % 0.0 % 10/13/18 10:20 Metamyelocytes % 4.0 % 10/13/18 10:20 Myelocytes % 3.0 % 10/13/18 10:20 Promyelocytes % 0.0 % 10/13/18 10:20 Blast Cells % 0.0 % 10/13/18 10:20 Immature Gran # Not Reported 10/13/18 10:20 Absolute Seg Neuts 19.80 10^3/uL (1.70-6.50) H 10/13/18 10:20 Absolute Band Neuts 1.09 10^3/uL (0.00-0.70) H 10/13/18 10:20 Absolute Lymphocytes 2.67 10^3/uL (1.00-3.00) 10/13/18 10:20 Absolute Monocytes 0.79 10^3/uL (0.30-0.80) 10/13/18 10:20 Absolute Eosinophils 0.26 10^3/uL (0.03-0.40) 10/13/18 10:20 Absolute Basophils 0.00 10^3/uL (0.02-0.10) L 10/13/18 10:20 Absolute Metamyelocyte 1.06 10^3/mL (0.00-0.00) H 10/13/18 10:20 Absolute Myelocytes 0.79 10^3/mL (0.00-0.00) H 10/13/18 10:20 Absolute Promyelocytes 0.00 10^3/uL (0.00-0.00) 10/13/18 10:20 Absolute Plasma Cells 0.00 10^3/uL (0.00-0.00) 10/13/18 10:20 Nucleated RBCs 0 /100 WBC (0-0) 10/13/18 10:20 Absolute Blast Cells 0.00 10^3/uL (0.00-0.00) 10/13/18 10:20 Plasma Cells % 0.0 % 10/13/18 10:20 Toxic Granulation PRESENT H 10/13/18 10:20 Platelet Estimate ADEQUATE (ADEQ) 10/13/18 10:20 Polychromasia 1+ H 10/13/18 10:20 Oval Macrocytes 1+ H 10/13/18 10:20 PT 13.0 SEC (12.0-15.0) 10/13/18 10:20 INR 1.02 (0.83-1.16) 10/13/18 10:20 D-Dimer 5.57 ug/mLFEU (0.00-0.50) H 10/13/18 10:20 Sodium 136 mEq/L (135-145) 10/13/18 10:20 Potassium 3.9 mEq/L (3.5-5.2) 10/13/18 10:20 Chloride 104 mEq/L (97-110) 10/13/18 10:20 Carbon Dioxide 25 mEq/l (22-31) 10/13/18 10:20 Anion Gap 7 mEq/L (6-14) 10/13/18 10:20 BUN 17 mg/dL (7-23) 10/13/18 10:20 Creatinine 0.6 mg/dL (0.6-1.0) 10/13/18 10:20 Estimated GFR > 60 10/13/18 10:20 Glucose 83 mg/dL (70-100) 10/13/18 10:20 Calcium 7.9 mg/dL (8.5-10.4) L 10/13/18 10:20 Total Bilirubin 0.9 mg/dL (0.1-1.4) 10/13/18 10:20 Conjugated Bilirubin 0.7 mg/dL (0.0-0.5) H 10/13/18 10:20 Unconjugated Bilirubin 0.2 mg/dL (0.0-1.1) 10/13/18 10:20 AST 31 IU/L (14-46) 10/13/18 10:20 ALT 52 IU/L (9-52) 10/13/18 10:20 Alkaline Phosphatase 209 IU/L (38-126) H 10/13/18 10:20 Lactate Dehydrogenase 652 IU/L (313-618) H 10/13/18 10:20 Creatine Kinase < 20 IU/L (0-156) 10/13/18 10:20 NT-Pro-B Natriuret Pep 357 pg/mL (0-125) H 10/13/18 10:20 Total Protein 5.8 g/dL (6.3-8.2) L 10/13/18 10:20 Albumin 2.6 g/dL (3.5-5.0) L 10/13/18 10:20 Triglycerides 237 mg/dL (35-135) H 10/13/18 10:20 Cholesterol 183 mg/dL (140-200) 10/13/18 10:20 Lipase 119 IU/L (23-300) 10/13/18 10:20 Beta HCG, Qual NEGATIVE 10/13/18 10:20 Urine Color YELLOW 10/13/18 12:04 Urine Appearance CLEAR 10/13/18 12:04 Urine pH 6.0 (5.0-7.5) 10/13/18 12:04 Ur Specific [place] 1.012 (1.002-1.030) 10/13/18 12:04 Urine Protein NEGATIVE (NEGATIVE) 10/13/18 12:04 Urine Ketones NEGATIVE (NEGATIVE) 10/13/18 12:04 Urine Blood 2+ (NEGATIVE) H 10/13/18 12:04 Urine Nitrate NEGATIVE (NEGATIVE) 10/13/18 12:04 Urine Bilirubin NEGATIVE (NEGATIVE) 10/13/18 12:04 Urine Urobilinogen NEGATIVE EU (0.2-1.0) 10/13/18 12:04 Ur Leukocyte Esterase TRACE (NEGATIVE) H 10/13/18 12:04 Urine RBC 5-10 /hpf (0-3) H 10/13/18 12:04 Urine WBC 15-25 /hpf (0-3) H 10/13/18 12:04 Ur Epithelial Cells 2+ /lpf (NONE-1+) H 10/13/18 12:04 Urine Bacteria TRACE /hpf (NONE SEEN) H 10/13/18 12:04 Urine Mucus TRACE /lpf (NONE-1+) 10/13/18 12:04 Urine Glucose NEGATIVE (NEGATIVE) 10/13/18 12:04 Assessment & Plan Assessment: Bilateral pleural effusion (Acute) - In setting of recent pulmonary infection, question if diagnosed with PNA vs. Bronchitis - CXR on admission showing b/l pleural effusions L>R, CTA performed today confirms this - Patient denies any systemic systems that would point to malignancy, autoimmune process - Order for Thoracentesis placed, fluid analysis order set with labs placed - S/p Ceftriaxone and Azithromycin in ED, has completed 5/7 days of Cipro, will continue ceft/azithro for now - Wean 02 as tolerated, 90% on RA in ED, currently on 2L satting in 's - Will order RVP Dysuria (Acute) - Reports problems with UTI since July, s/p 2 courses of same antibiotic at that time - Was rx Cipro last week at ED in [place] with improvement in symptoms - UA on admission showing Leukocytosis - In setting of pulmonary/UTI, WBC 26.4 on admission with 4.1% bands - Also with recent steroid use, will not restart - Abx as above - Continue to monitor CBC Pleurisy with effusion (Acute) - In setting of pleural effusions as above - Will treat with PRN pain medications, Tylenol, Ibuprofen, Tramadol FEN: Regular DVT PPx: Low risk, SCDs Code: FULL Dispo: Admit to Observation
[2018-10-13] MEDS: LORazepam 0.5 MG TAB PO PRN ×2 (16:22→21:17)
[2018-10-13] MEDS: traMADol 50 MG TAB PO PRN (16:22)
[2018-10-13] MEDS: ACETAMINOPHEN 325 MG TAB PO PRN (20:01)
[2018-10-13] MEDS: IBUPROFEN 200 MG TAB PO PRN (21:17)
[2018-10-14] MEDS: LORazepam 0.5 MG TAB PO PRN ×3 (04:55→23:36)
[2018-10-14] MEDS: ACETAMINOPHEN 325 MG TAB PO PRN (05:11)
[2018-10-14 05:21] LABS: PLATELET COUNT 306 10^3/uL (150-400)
[2018-10-14] MEDS: traMADol 50 MG TAB PO PRN ×4 (08:50→22:05)
[2018-10-14] MEDS: AZITHROMYCIN IV 500 MG in NS 250 ML IV SCH (08:50)
[2018-10-14] MEDS: IBUPROFEN 200 MG TAB PO PRN ×2 (11:11→19:51)
[2018-10-14] MEDS: ALBUTEROL 3 ML DEYVIAL IH PRN (13:05)
--- NOTE | 2018-10-14 15:07 | HOSPPROG ---
Hospitalist Progress Note Assessment/Plan: Bilateral pleural effusion (Acute) - In setting of recent pulmonary infection, question if diagnosed with PNA vs. Bronchitis - CXR on admission showing b/l pleural effusions L>R, CTA performed 10/13 confirms this - Patient denies any systemic systems that would point to malignancy, autoimmune process - Order for Thoracentesis placed, fluid analysis order set with labs placed - S/p Ceftriaxone and Azithromycin in ED, has completed 5/7 days of Cipro, will continue ceft/azithro for now - Wean 02 as tolerated, 90% on RA in ED, currently on 2L satting in Dysuria (Acute) - Reports problems with UTI since July, s/p 2 courses of same antibiotic at that time - Was rx Cipro last week at ED in [place] with improvement in symptoms - UA on admission showing trace LE, 10-25 WBC, Trace bacteria, still havign dysuria, frequency - Urine culture pending - Abx as above Leukocytosis - In setting of pulmonary/UTI, WBC 26.4 on admission with 4.1% bands - Also with recent steroid use, will not restart - Abx as above - Continue to monitor CBC Pleurisy with effusion (Acute) - In setting of pleural effusions as above - Will treat with PRN pain medications, Tylenol, Ibuprofen, Tramadol FEN: Regular DVT PPx: Low risk, SCDs Code: FULL Dispo: Pending clinical course Subjective: Patient reports continued pain this AM Objective: Vital Signs Temp Pulse Resp BP Pulse Ox 37.0 C 91 18 102/60 93 10/14/18 11:13 10/14/18 13:10 10/14/18 13:10 10/14/18 11:13 10/14/18 13:10 Laboratory Results 10/14/18 04:35 PT 13.0 SEC (12.0-15.0) 10/13/18 10:20 INR 1.02 (0.83-1.16) 10/13/18 10:20 - Physical Exam Constitutional: uncomfortable Eyes: PERRL Ears, Nose, Mouth, Throat: moist mucous membranes Cardiovascular: regular rate and rhythym Respiratory: reduced air movement Gastrointestinal: soft, non-tender abdomen Skin: warm Neurologic: AAOx3 Psychiatric: anxious ICD10 Worksheet Patient Problems: Problems Problem Status Onset Bilateral pleural effusion Acute Dysuria Acute Hypoxia Acute Pleurisy with effusion Acute Acute appendicitis Acute
--- NOTE | 2018-10-14 16:26 | PDMN ---
Medical Necessity Medical necessity: MCG M540 Pleural Effusion, A-2 days: 28 yo presents w/ SOB recently dx w/ UTI and bronchitis completing majority of course of antibx and steroids on OP basis. Further eval reveals B/L pleural effusions (acute), question PNA vs. bronchitis, BC pending, IV antibx started, initially OBS for workup/tx but change to IP status 10/14/18@1513 per MD order as pt requires additional MN - pt cont to require O2 to keep sats>90%, remains on parenteral antibx, WBC noted to have increased overnight, thoracentesis pending. Meets IP criteria for pleural effusions w/ ongoing hypoxemia beyond obs care.
--- NOTE | 2018-10-14 18:09 | ASMTCMCOM ---
CM Note CM Note Notes: Patient is a 28 year old female who presented to [facility] ED with shortness of breathe, low grade fevers, light lover rib and upper abdominal flank soreness. Patient was in [place] last week and hospitalized with bronchitis. Patient has PCP with [facility]. Patient found to have bilateral Pleural Effusion. ALAN Rodriguez shared patient is presenting as teary and suggested CM meet with patient to discuss Mental Health support. CM met with patient, she is in room with visitors and did not have any questions. CM [facility] CM to follow. D/C Plan: likely independent. Date Signed: 10/14/2018 06:08 PM Electronically Signed By:Dora Sommers
[2018-10-15] MEDS: traMADol 50 MG TAB PO PRN ×3 (03:49→22:20)
[2018-10-15 05:23] LABS: PLATELET COUNT 378 10^3/uL (150-400)
[2018-10-15] MEDS: AZITHROMYCIN IV 500 MG in NS 250 ML IV SCH (08:01)
[2018-10-15] MEDS: ALBUTEROL 3 ML DEYVIAL IH PRN (09:05)
[2018-10-15] MEDS: IPRATROPIUM/ALBUTEROL 3 ML DEYVIAL IH SCH ×3 (12:56→23:09)
[2018-10-15] MEDS: LORazepam 0.5 MG TAB PO PRN ×2 (13:36→22:20)
[2018-10-15] MEDS: OXYCODONE/APAP 5/325 TAB PO PRN ×2 (13:36→18:07)
[2018-10-15] MEDS ORDERED: LIDOCAINE 1% 300 MG/30 ML SDV ONE (13:55)
--- NOTE | 2018-10-15 17:10 | HOSPPROG ---
Hospitalist Progress Note Assessment/Plan: Bilateral pleural effusion (Acute) - In setting of recent pulmonary infection, question if diagnosed with PNA vs. Bronchitis - CXR on admission showing b/l pleural effusions L>R, CTA performed 10/13 confirms this - Patient denies any systemic systems that would point to malignancy, autoimmune process - Order for Thoracentesis placed, fluid analysis order set with labs placed - S/p Ceftriaxone and Azithromycin in ED, has completed 5/7 days of Cipro, will continue ceft/azithro for now - Wean 02 as tolerated, 90% on RA in ED, currently on 2L satting in 's Dysuria (Acute) - Reports problems with UTI since July, s/p 2 courses of same antibiotic at that time - Was rx Cipro last week at ED in [place] with improvement in symptoms - UA on admission showing trace LE, 10-25 WBC, Trace bacteria, still having dysuria, frequency - Urine culture pending - Abx as above Leukocytosis - In setting of pulmonary/UTI, WBC 26.4 on admission with 4.1% bands - Also with recent steroid use, will not restart - Abx as above - Continue to monitor CBC Pleurisy with effusion (Acute) - In setting of pleural effusions as above - Will treat with PRN pain medications, Tylenol, Ibuprofen, Tramadol FEN: Regular DVT PPx: Low risk, SCDs Code: FULL Dispo: Pending clinical course Subjective: Patient reports some chest tightness this am Objective: Vital Signs Temp Pulse Resp BP Pulse Ox 37.4 C 98 18 101/59 L 96 10/15/18 15:48 10/15/18 16:05 10/15/18 16:05 10/15/18 15:48 10/15/18 16:05 Laboratory Results 10/15/18 05:01 10/14/18 10/15/18 10/16/18 05:59 05:59 05:59 Output Total 1100 Balance -1100 PT 13.0 SEC (12.0-15.0) 10/13/18 10:20 INR 1.02 (0.83-1.16) 10/13/18 10:20 - Physical Exam Constitutional: uncomfortable Eyes: PERRL Ears, Nose, Mouth, Throat: moist mucous membranes Cardiovascular: regular rate and rhythym Respiratory: reduced air movement Skin: warm Musculoskeletal: full muscle strength Neurologic: AAOx3 Psychiatric: anxious ICD10 Worksheet Patient Problems: Problems Problem Status Onset Bilateral pleural effusion Acute Dysuria Acute Hypoxia Acute Pleurisy with effusion Acute Acute appendicitis Acute
[2018-10-16] MEDS: OXYCODONE/APAP 5/325 TAB PO PRN ×5 (02:11→17:28)
[2018-10-16 06:55] LABS: PLATELET COUNT 414 10^3/uL (150-400)
[2018-10-16] MEDS: AZITHROMYCIN IV 500 MG in NS 250 ML IV SCH (08:05)
[2018-10-16] MEDS: IPRATROPIUM/ALBUTEROL 3 ML DEYVIAL IH SCH ×3 (08:29→16:29)
--- NOTE | 2018-10-16 15:31 | ASMTCAGE ---
CAGE Do you feel you ought to Answers: No cut down on your drinking or drug use? Do people annoy you by Answers: No criticizing your drinking or drug use? Do you feel guilty about Answers: No your drinking or drug use? 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 Date Signed: 10/16/2018 03:30 PM Electronically Signed By:Alyson Moreno
--- NOTE | 2018-10-16 15:50 | ASMTCMCOM ---
CM Note CM Note Notes: Spoke with pt in the room. Pt's parents live in [place], but are not very supportive and pt doesn't see them often. 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 Pt is tearful and grateful for information given regarding [facility], [facility] and [facility]. Bridge truck bench mechanic Ellen March also emailed regarding pt with pt's permission. Pt recognizes connection between recent stress and health difficulties and is worried about how to move her things out of the apt she shared with her now former boyfriend by the end of the month. Pt will need [facility] appt upon discharge and possibly [facility]. CM to follow. D/C Plan: Independent Date Signed: 10/16/2018 03:49 PM Electronically Signed By:Alyson Moreno
--- NOTE | 2018-10-16 16:35 | HOSPPROG ---
Hospitalist Progress Note Assessment/Plan: Bilateral pleural effusion/Empyema (Acute) - In setting of recent pulmonary infection, question if diagnosed with PNA vs. Bronchitis - CXR on admission showing b/l pleural effusions L>R, CTA performed 10/13 confirms this - Patient denies any systemic systems that would point to malignancy, autoimmune process - S/p Thoracentesis on 10/15 with pleural fluid pH 6.9, glucose <60, LDH 10,000, WBC 3,000 consistent with an exudative effusion - Post-procedure CXR shows no pneumothorax but loculated effusion remains on L - Consulted ID this AM - S/p Ceftriaxone and Azithromycin in ED, has completed 5/7 days of Cipro, will continue ceft/azithro for now, await ID recommendations - Wean 02 as tolerated, 90% on RA in ED, currently on 2L satting in Dysuria (Acute) - Reports problems with UTI since July, s/p 2 courses of same antibiotic at that time - Was rx Cipro last week at ED in [place] with improvement in symptoms - UA on admission showing trace LE, 10-25 WBC, Trace bacteria, still having dysuria, frequency - Urine culture growing Gardnerella - Abx as above Leukocytosis - In setting of pulmonary/UTI, WBC 26.4 on admission with 4.1% bands - Also with recent steroid use, will not restart - Abx as above - Continue to monitor CBC, improved to 20 this AM Pleurisy with effusion (Acute) - In setting of pleural effusions as above - Will treat with PRN pain medications, Tylenol, Ibuprofen, Tramadol FEN: Regular DVT PPx: Low risk, SCDs Code: FULL Dispo: Pending clinical course Subjective: Patient reports improved L sided pain after thoracentesis yesterday Objective: Vital Signs Temp Pulse Resp BP Pulse Ox 37.7 C 85 16 104/58 L 90 L 10/16/18 15:50 10/16/18 15:50 10/16/18 15:50 10/16/18 15:50 10/16/18 15:50 Microbiology 10/15/18 16:00 Gram Stain - Final Thoracic Fluid - Aspirate 10/15/18 16:00 Mycobacterial Smear (JOANNE) - Final Thoracic Fluid - Aspirate Laboratory Results 10/16/18 05:59 10/15/18 10/16/18 10/17/18 05:59 05:59 05:59 Intake Total 2049 Output Total 1100 Balance 950 PT 13.0 SEC (12.0-15.0) 10/13/18 10:20 INR 1.02 (0.83-1.16) 10/13/18 10:20 - Physical Exam Constitutional: uncomfortable Eyes: PERRL Ears, Nose, Mouth, Throat: moist mucous membranes Cardiovascular: regular rate and rhythym Respiratory: no respiratory distress, reduced air movement Gastrointestinal: soft, non-tender abdomen Skin: warm Musculoskeletal: full muscle strength Neurologic: AAOx3 Psychiatric: interacting appropriately ICD10 Worksheet Patient Problems: Problems Problem Status Onset Bilateral pleural effusion Acute Dysuria Acute Hypoxia Acute Pleurisy with effusion Acute Acute appendicitis Acute
[2018-10-16] MEDS ORDERED: IOPAMIDOL (ISOVUE-300) 100 ML BTL ONE (17:21)
[2018-10-16] MEDS: LORazepam 1 MG TAB PO PRN ×2 (17:28→23:54)
[2018-10-16 19:16] LABS: HIV TYPE 1 AND 2 NEGATIVE (NEGATIVE)
--- NOTE | 2018-10-16 22:22 | PDCONSULT ---
Rn Cardiovascular Icu Note: 10/16/[address] Rodgers. Etiology of empyema remains elusive. Fluid collections are loculated by sono per radiology. Follow up CT shows that the effusion has increased. Plan: Strongly doubt that even multiple chest tubes would effectively drain this empyema. Will hold npo tonight and plan a VATS procedure tomorrow to drain and decorticate the left chest.
[2018-10-16] MEDS: NS 1,000 ML IV SCH (22:29)
[2018-10-17] MEDS: IPRATROPIUM/ALBUTEROL 3 ML DEYVIAL IH SCH (00:10)
[2018-10-17] MEDS: LORazepam 1 MG TAB PO PRN (05:29)
[2018-10-17] MEDS: OXYCODONE/APAP 5/325 TAB PO PRN (05:29)
--- NOTE | 2018-10-17 05:29 | GCON ---
[f rep st] CONSULTATION INFECTIOUS DISEASE CONSULTATION DATE OF CONSULTATION: 10/16/2018 REFERRING PHYSICIAN: Abdirahman Bone DO REASON FOR CONSULTATION: Large left-sided empyema. HISTORY OF PRESENT ILLNESS: This is a healthy 28-year-old woman who was in her usual state of health until she developed mild rhinorrhea and coughing, 10/04 and . She went to [place] on 10/05 and over the course that she was there, she went to Urgent Care after she developed left-sided chest pain, then left upper chest pain that was pleuritic in nature. She was given a Z-Josue and cough medicine in Urgent Care. No chest x-ray was performed. She had progressively worsening pain on that same day and felt restrictive breathing and in the examining chair assembler of 10/06, went to the hospital where she was given a prednisone and ciprofloxacin and reports that a chest x-ray was performed that showed no pneumonia. She was discharged. She returned to [place] and had progressive shortness of breath, had chest muscle spasms and constant pleuritic chest pain with subjective fevers and sweats associated with decreased p.o. intake, bloating. In the emergency room, she was found to have a large left-sided pleural effusion and was empirically started on ceftriaxone and azithromycin. She underwent a CTA in the emergency room that confirmed large pleural effusion that appeared to be loculated without PE. The patient continued to have progressive shortness of breath and leukocytosis with an initial white count of 26,000 and underwent thoracentesis on 10/15/2018 which demonstrated numbers consistent with empyema with a pleural fluid pH of 6.9, WBCs of 3097, 100% neutrophils. LDH over 10,000, undetectable glucose. ID was asked to consult for management. The patient has stated that immediately after undergoing the 1 L pleural tap, she felt some symptomatic relief, but that relief is no longer present. PAST MEDICAL HISTORY: Activity-induced asthma; she rarely uses albuterol, intermittent migraines, recurrent UTIs. She has anxiety that she takes alprazolam for. PAST SURGICAL HISTORY: Appendectomy in 2017. ALLERGIES: Rash to PCN as child, does not recall, been told by mother SOCIAL HISTORY: The patient is partnered with a boyfriend x2 months. There is no control method currently. She stopped control in July of 2018. 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 She was born in [place]. Prior to her travels to [place] earlier this month, she had not been out of [place] for over 1 year. She recently broke up with a prior boyfriend at the end of 2018. She grew up in [place]. She has had pet rats her entire life and currently has 4 pet rats, previously had 5; she recently put one to sleep for a mammary tumor. She plays the [employer] and graduated with a music degree from . She does not eat unpasteurized milk products. No sushi. No hot tubs or steam rooms. Occasional nasal cocaine, no IVDU FAMILY HISTORY: Positive for breast cancer in her mom. Her dad has severe congenital heart disease and is quite ill, oxygen-dependent. There is also a family history of diabetes and hypertension. VACCINATION HISTORY: She reports she is up to date on all of her vaccinations. REVIEW OF SYSTEMS: A complete 10-point review of systems was performed and is negative except as mentioned in the HPI or here. She does describe some vaginal discharge and itching which she relates to antibiotic use. No rashes. No known weight loss, although she has not weighed herself. No known TB contacts. PHYSICAL EXAM: VITAL SIGNS: T-max is 37.9, T current 37.7, blood pressure 104/ 58, heart rate 85, respiratory rate 16, saturation 90% on 3 L. GENERAL: This is a very pleasant articulate young woman who does appear to be in respiratory distress, but is able to speak in complete sentences. HEENT: No conjunctival hemorrhages. Pupils are reactive. Oropharynx, good dentition. Slightly dry mucous membranes. No oral ulcerations or exudates. No obvious dental caries. NECK: Supple. CARDIOVASCULAR: Regular rate, no murmurs. CHEST: Absent breath sounds over the left 2/3, possible pleural rub, left lower lung field. ABDOMEN: Soft, nontender. EXTREMITIES: No clubbing, cyanosis, or edema. No joint swelling. No peripheral stigmata of endocarditis. NEUROLOGIC: She is alert and oriented x4, moving all 4 extremities equally. She was somewhat tearful intermittently and anxious. LABORATORY: White count 20,000, hematocrit 30, platelets of 414, 76% neutrophils, 2% bands, 12% lymphocytes, 9% monos. Initial white count 26,000. Microbiology: Pleural fluid. Gram stain showed PMNs no organisms. AFB smear negative. Blood cultures from 10/13/2018 are no growth to date. IMAGING: As per HPI. ASSESSMENT AND PLAN: 28-year-old woman with a large left empyema that is progressively worsening despite IV antibiotic therapy. Notably, the patient has a markedly elevated LDH, low glucose. White count is surprisingly not elevated as much as one would expect with the other parameters, although they were all neutrophils. Strongly suspect infectious etiology, but there is a remote possibility of other etiologies such as malignancy. Primary pathogens would consider Streptococcus, but with longstanding rat exposure, could also consider Streptobacillus moniliformis. This can be a slow growing organism, therefore, lack of positive cultures is not necessarily surprising. Nonetheless , patient's typically have higher grade fever with infection with this organism , as well as a rash. Also would consider other typical etiologies such as pneumococcus, H influenzae, Moraxella, etc. 1. Ceftriaxone 2 g is a reasonable empiric therapy. 2. Have consulted Surgery as due to multiple loculations and rapidly progressive disease, would lean toward surgical management versus multiple chest tubes, although defer to Surgery for final decision-making. 3. Consider repeating cultures with additional drainages including repeat pleural fluid parameters to recheck pleural fluid cell count. 4. Patient was made n.p.o. after midnight for possible surgical intervention tomorrow. Would add on HIV to blood tests. This was specifically discussed with patient. 5. Vaginal discharge. At this point will defer further therapy of this and await stabilization of pulmonary disease. Thank you for this consultation. We will continue to see the patient on a daily basis. Time was 120 minutes. Greater than 50% of time spent with coordinating care, patient education including risks and benefits of drainage versus surgical management and IV antibiotic therapy. /[id number]/MODL MTDD
[2018-10-17 06:57] LABS: PLATELET COUNT 649 10^3/uL (150-400)
[2018-10-17] MEDS ORDERED: TALC 3 GM INTRAPLEURAL VIAL ONE (09:44)
[2018-10-17] MEDS ORDERED: LIDOCAINE 1% 2 ML INJ ID PRN (09:46)
[2018-10-17] MEDS ORDERED: LR 1,000 ML IV ONE (09:46)
[2018-10-17] MEDS ORDERED: MIDAZOLAM 2 MG/2 ML VIAL ONE ×2 (10:21→10:35)
[2018-10-17] MEDS ORDERED: MIDAZOLAM 2 MG/2 ML VIAL IVP ONE ×2 (10:21→10:22)
--- NOTE | 2018-10-17 10:23 | PDANEPAE ---
ANE History of Present Illness here for L VATS for empyema ANE Past Medical History - Cardiovascular History Hx Hypertension: No Hx Arrhythmias: No Hx Chest Pain: No Hx Coronary Artery / Peripheral Vascular Disease: No Hx CHF / Valvular Disease: No Hx Palpitations: No - Pulmonary History Hx COPD: No Hx Asthma/Reactive Airway Disease: No Hx Recent Upper Respiratory Infection: No Hx Oxygen in Use at Home: No Hx Sleep Apnea: No Sleep Apnea Screening Result - Last Documented: Negative - Endocrine History Hx Diabetes: No Hypothyroid: No Hyperthyroid: No - Renal History Hx Renal Disorders: No - Liver History Hx Hepatic Disorders: No - Chronic Pain History Chronic Pain: No ANE Review of Systems Review of systems is: negative Review of Systems: - Exercise capacity Exercise capacity: >=4 METS ANE Patient History - Allergies Allergies/Adverse Reactions: Penicillins Allergy (Verified 10/13/18 09:25) - Home Medications Home medications: home medication list seen and reviewed Home Medications: ALPRAZolam [Xanax 0.5 MG (*)] 0.5 mg PO DAILY PRN 10/13/18 [Last Taken Unknown] Albuterol Sulfate [Albuterol Sulfate Hfa] 2 puffs IH QID PRN 10/13/18 [Last Taken 10/12/18] Benzonatate [Tessalon Pearles (RX)] 100 mg PO TID PRN 10/13/18 [Last Taken 10/11] Ciprofloxacin [Cipro] 500 mg PO BID 10/13/18 [Last Taken 10/12/18 PM] - NPO status NPO Status: no food or drink >8 hours NPO Since - Liquids (Date): 10/16/18 NPO Since - Liquids (Time): 19:00 NPO Since - Solids (Date): 10/16/18 NPO Since - Solids (Time): 19:00 - Smoking Hx Smoking Status: Never smoked ANE Labs/Vital Signs - Labs Result Diagrams: 10/17/18 05:26 10/13/18 10:20 - Vital Signs Vital Signs: reviewed preoperatively; see RN documention for details Blood Pressure: 112/60 Heart Rate: 98 Respiratory Rate: 18 O2 Sat (%): 95 Height: 170.18 cm Weight: 54.431 kg ANE Physical Exam - Airway Neck exam: FROM Mallampati Score: Class 1 Mouth exam: normal dental/mouth exam - Pulmonary Pulmonary: no respiratory distress - Cardiovascular Cardiovascular: regular rate and rhythym - ASA Status ASA Status: II ANE Anesthesia Plan Anesthesia Plan: general endotracheal anesthesia Lines/Monitors: additional IV Specialized Airway: double lumen tube
[2018-10-17] MEDS ORDERED: PROPOFOL/EMULSION 500 MG/50 ML BOTTLE IV ONE (10:26)
[2018-10-17] MEDS ORDERED: fentaNYL 100 MCG/2 ML INJ ONE ×3 (10:28→14:02)
[2018-10-17] MEDS ORDERED: ONDANSETRON 4 MG/2 ML VIAL ONE (11:43)
[2018-10-17] MEDS ORDERED: DEXAMETHASONE 4 MG/ML VIAL ONE (11:43)
[2018-10-17] MEDS ORDERED: PHENYLEPHRINE HCL 100 MCG/ML SYR ONE (12:19)
[2018-10-17] MEDS ORDERED: SUGAMMADEX SODIUM 200 MG/2 ML VIAL IVP ONE (13:40)
[2018-10-17] MEDS ORDERED: HYDROmorphONE/DILAUDID 2 MG/ML INJ ONE (14:02)
[2018-10-17] MEDS ORDERED: KETOROLAC 30 MG/1 ML SDV ONE (14:10)
[2018-10-17] MEDS ORDERED: HYDROCODONE/APAP 5/325 TAB ONE (14:58)
[2018-10-17] MEDS ORDERED: ALBUTEROL 3 ML DEYVIAL IH PRN ×2 (19:19→19:28)
[2018-10-17] MEDS ORDERED: DEXAMETHASONE 4 MG/ML VIAL IVP PRN (19:19)
[2018-10-17] MEDS ORDERED: NALOXONE HCL 0.4 MG/ML INJ IVP PRN (19:19)
[2018-10-17] MEDS ORDERED: HYDROCODONE/APAP 5/325 TAB PO PRN (19:19)
[2018-10-17] MEDS ORDERED: oxyCODONE IR 5 MG TAB PO PRN (19:19)
[2018-10-17] MEDS ORDERED: PROMETHAZINE HCL 25 MG/ML INJ IVP PRN (19:19)
[2018-10-17] MEDS ORDERED: DIAZEPAM 5 MG/ML 1 ML SYR IVP PRN (19:19)
[2018-10-17] MEDS ORDERED: NS 500 ML IV PRN (19:19)
[2018-10-17] MEDS ORDERED: ONDANSETRON 4 MG/2 ML VIAL IVP PRN ×2 (19:19→19:27)
[2018-10-17] MEDS ORDERED: IPRATROPIUM/ALBUTEROL 3 ML DEYVIAL IH PRN (19:27)
[2018-10-17] MEDS ORDERED: LORazepam 1 MG TAB PO PRN (19:27)
[2018-10-17] MEDS: traMADol 50 MG TAB PO PRN (19:30)
--- NOTE | 2018-10-17 19:33 | GOP ---
[f rep st] OPERATIVE REPORT DATE OF OPERATION: 10/17/2018 SURGEON: Nithin Rojas MD ANESTHESIA: General endotracheal. PREOPERATIVE DIAGNOSIS: Empyema thoracis, left chest. POSTOPERATIVE DIAGNOSIS: Empyema thoracis, left chest. PROCEDURE PERFORMED: Video-assisted thoracic surgery for decortication and chest tube placement, left chest. FINDINGS: Empyema thoracis, left chest. SPECIMENS: Pleural fluid for cell count, decortication material for culture, decortication material for final pathology. ESTIMATED BLOOD LOSS: Between 300 and 500 cc. INDICATIONS: Empyema thoracis, left chest. DESCRIPTION OF PROCEDURE: The patient was placed on the operating table in the supine position on a tucker bag. She was placed under general anesthesia with a dual-lumen tube. A right radial A-line was placed. A Coleman catheter was positioned. She was now carefully rotated into the right lateral decubitus position on the tucker bag. Care was taken to make sure an axillary roll in place and the right arm was carefully padded. The left arm was placed on a padded upper arm board. Her right knee was carefully bent and padded to protect the peroneal nerve. A pillow was placed between the legs. Her left leg was straight. Her hips were held vertically. The beanbag was carefully deflated to secure her position. Two 3-inch pieces of tape were used across her hips. A safety strap was placed. All potential pressure points are checked. The left chest was carefully prepped and draped. Note is made that in placing the Coleman catheter, an area of a slight bullous vesicular change was noted on her clitoral franco. There was also another lesion on her right vulva. Possible herpes? This will be communicated to ID (Dr. Deepthi Rodgers). A surgical time-out was carried out and agreed to by all members of the operating team. Care had been taken based on the CAT scan to choose 2 points for incision. These were in the anterior axillary line at approximately the level of the 7th and 10th ribs. The left lung was deflated. At the 7th rib, an incision was carefully made and deepened with Bovie electrocautery for placement of an 8 mm trocar. Fluid was immediately obtained and sent for cell count. Some loculations were broken up with the Yankauer tip. Further fluid evacuation was carried out. The 8 mm scope was carefully introduced. The scope was carefully manipulated to break down some of the adhesions to provide further space to work. The 2nd port site was carefully made and the chest was again entered over the superior surface of the rib. The fluid encountered was thin and not foul smelling. A long and tedious decortication procedure were carried out (approximately 1-3/4 hours). A large amount of fibrino-purulent material was removed. I feel I was able to get to all surfaces of both the upper and lower lobe, as well as the fissure. There had been a small pocket seen on CT scan posterior medial to the left lower lobe. I feel I was able to access that space as well, but it was difficult to rotate the lower lobe absolutely medially. Copious irrigation was used. A 32 straight Greenlandic chest tube was placed through the upper of the 2 lateral incisions. It was directed to the apex and secured in place with a 2-0 silk suture. The trocars and thoracoscope were removed. A dermal suture of #3-0 Vicryl was placed in inverted simple technique to approximate the lower incision. Mastisol and Steri-Strips were placed. A sterile dressing was placed around the chest tube. The lung was reinflated. At the end of surgery, approximately 250 cc of blood was noted in the Pleur-Evac. She was transferred to recovery in stable and satisfactory condition where a chest x-ray will be obtained. /[id number]/MODL MTDD
[2018-10-17] MEDS: ACETAMINOPHEN 500 MG TAB PO SCH (20:14)
--- NOTE | 2018-10-17 20:35 | PCMIDPN ---
Assessment/Plan: # Large Left sided empyema s/p VATS decortication and chest tube placement today , many loculation seen & debrided intraop, tissue from OR shows GPC clusters --Continue ceftriaxone for now, certainly morphology of gram positives on gram stain suspicious for staph and excludes concern for Streptobacillus moniliformis which is a GNR --follow OR cx --appreciate gen surg assistance # Genital lesions: will evaluate Monday Microbiology 10/17/18 11:51 Lung - Tissue Gram Stain : GPC clusters 10/15/18 16:00 Thoracic Fluid - Aspirate: gram stain neg; Cx NGTD 10/13/18 13:49 Blood Cx (2): NGTD Subjective: expected post op pain worried about scarring Objective: Vital Signs Temp Pulse Resp BP Pulse Ox 36.6 C 97 21 H 95/56 L 95 10/17/18 19:45 10/17/18 20:00 10/17/18 20:00 10/17/18 20:00 10/17/18 20:00 Microbiology 10/17/18 11:51 Gram Stain - Final Lung - Tissue 10/15/18 16:00 Gram Stain - Final Thoracic Fluid - Aspirate Laboratory Results 10/17/18 05:26 10/16/18 10/17/18 10/18/18 05:59 05:59 05:59 Intake Total 2050 2305 240 Output Total 1100 Balance 950 2305 240 - Physical Exam General Appearance: alert, no apparent distress, other (tearful) EENT: No thrush Respiratory: other (L sided CT w serosang fluid), No accessory muscle use Neck: supple Skin: No rash Neuro/Psych: alert, oriented x 3 - Time Spent With Patient Time Spent with Patient: greater than 35 minutes (care coordinated with Dr. Rojas and nursing; updated boyfriend post operatively) Time Spent with Patient: Greater than 35 minutes spent on this patients care, greater than 50% of time spent counseling, educating, and coordinating care regarding the above mentioned plan. ICD10 Worksheet Patient Problems: Problems Problem Status Onset Bilateral pleural effusion Acute Dysuria Acute Hypoxia Acute Pleurisy with effusion Acute Acute appendicitis Acute
[2018-10-18] MEDS: HYDROmorphONE/DILAUDID 1 MG/ML INJ IVP PRN (02:03)
[2018-10-18] MEDS: NS 1,000 ML IV SCH ×2 (02:04→11:33)
[2018-10-18] MEDS: ACETAMINOPHEN 500 MG TAB PO SCH ×4 (04:06→19:33)
[2018-10-18] MEDS: traMADol 50 MG TAB PO PRN (05:06)
[2018-10-18 05:36] LABS: PLATELET COUNT 574 10^3/uL (150-400)
[2018-10-18] MEDS: IPRATROPIUM/ALBUTEROL 3 ML DEYVIAL IH PRN ×2 (06:12→23:01)
--- NOTE | 2018-10-18 08:26 | POSTANESTH ---
Post Anesthetic Evaluation Cardiovascular Status: Normal, Stable Respiratory Status: Normal, Stable Level of Consciousness/Mental Status: Can Participate in Eval Pain Control: Inadeq, Add Tx Required Nausea/Vomiting Control: Adequate, Prn Tx Ordered Complications Possibly Related to Anesthesia: None Noted
--- NOTE | 2018-10-18 09:40 | PCMIDPN ---
Assessment/Plan: # Large Left sided empyema s/p VATS decortication and chest tube placement 10/17 ; reviewed tissue in lab today and clinically appears most c/w strep anginosis group. Report updated my micro. --Continue ceftriaxone --follow OR cx --appreciate gen surg assistance --at this point not definite to need IV antibiotics at discharge therefore hold off on placement of PICC line --pleural effusion right sided, likely needs drainage, re-assess tomorrow --doubt predisposing factor, HIV negative. Will send immunoglobulins # Genital lesions: Not able to evaluate today Microbiology 10/17/18 11:51 Lung - Tissue Gram Stain : small GPCs, small chains; Cx NGTD at 12h 10/15/18 16:00 Thoracic Fluid - Aspirate: gram stain neg; Cx NGTD 10/13/18 13:49 Blood Cx (2): NGTD HIV neg Subjective: Patient is feeling better today Objective: Vital Signs Temp Pulse Resp BP Pulse Ox 37.3 C 88 19 91/52 L 96 10/18/18 08:00 10/18/18 08:00 10/18/18 08:00 10/18/18 08:00 10/18/18 08:00 Microbiology 10/17/18 11:51 Gram Stain - Final Lung - Tissue 10/15/18 16:00 Gram Stain - Final Thoracic Fluid - Aspirate Laboratory Results 10/18/18 05:00 10/18/18 05:00 10/17/18 10/18/18 10/19/18 05:59 05:59 05:59 Intake Total 2305 2325 Output Total 1370 Balance 2305 955 - Physical Exam General Appearance: alert, no apparent distress, thin, non-toxic EENT: pale conjunctiva Respiratory: other (improved breath sounds R lung field, CT in place with serosanguineous drainage), No accessory muscle use, No pleural rub Neck: supple Cardiac/Chest: regular rate, rhythm Extremities: No pedal edema Abdomen: non-tender, soft Skin: pallor, No rash Neuro/Psych: alert, normal mood/affect, oriented x 3 - Time Spent With Patient Time Spent with Patient: greater than 35 minutes (Care coordinated with surgical and ICU teams) Time Spent with Patient: Greater than 35 minutes spent on this patients care, greater than 50% of time spent counseling, educating, and coordinating care regarding the above mentioned plan. ICD10 Worksheet Patient Problems: Problems Problem Status Onset Bilateral pleural effusion Acute Dysuria Acute Hypoxia Acute Pleurisy with effusion Acute Acute appendicitis Acute
--- NOTE | 2018-10-18 10:32 | SOAPPROG ---
SOAP Progress Note Assessment/Plan: 10/18/18 10:23 POD#1 Assessment: Doing quite well, Hct down ( as expected ), VSS, CXR shows tube in good position and possible small right pleural effusion, WBC up thought due to surgery - will follow. Gram pos cocci seen on surgical specimens. On Ceftriaxone. IS only to 1500cc. Plan: Follow CXR Consider right thoracentesis Consider Fu Chest CT if issues persist Continue chest tube suction Subjective: IM feeling better c/o spasm in left arm Objective: Vital Signs Temp Pulse Resp BP Pulse Ox 37.3 C 88 19 91/52 L 96 10/18/18 08:00 10/18/18 08:00 10/18/18 08:00 10/18/18 08:00 10/18/18 08:00 Microbiology 10/17/18 11:51 Gram Stain - Final Lung - Tissue 10/15/18 16:00 Gram Stain - Final Thoracic Fluid - Aspirate Laboratory Results 10/18/18 05:00 10/18/18 05:00 10/17/18 10/18/18 10/19/18 05:59 05:59 05:59 Intake Total 2305 2325 Output Total 1370 Balance 2305 955 PT 13.0 SEC (12.0-15.0) 10/13/18 10:20 INR 1.02 (0.83-1.16) 10/13/18 10:20 - Time Spent With Patient Time Spent With Patient: 35 - Pending Discharge Pending Discharge Within 24 Hours: No Pending Discharge Within 48 Hours: No Physical Exam - Physical Exam General Appearance: WD/WN, alert, mild distress Respiratory: chest non-tender, lungs clear, normal breath sounds, other (chest tube with ~ 600cc out post op) Cardiac/Chest: regular rate, rhythm Abdomen: normal bowel sounds, non-tender, soft Pelvic Exam: deferred Rectal: deferred Back: Normal inspection Skin: normal color, warm/dry (no air leak, pleural drainage is sero sanguinous) Extremities: normal range of motion, non-tender Neuro/Psych: no motor/sensory deficits, alert, normal mood/affect, oriented x 3 ICD10 Worksheet Patient Problems: Problems Problem Status Onset Bilateral pleural effusion Acute Dysuria Acute Hypoxia Acute Pleurisy with effusion Acute Acute appendicitis Acute
[2018-10-18] MEDS: KETOROLAC 15 MG/1 ML SDV IVP SCH ×3 (12:08→23:28)
--- NOTE | 2018-10-18 13:06 | GCON ---
[f rep st] CONSULTATION SQL DATA ANALYST CONSULTATION REASON FOR ADMISSION TO INTENSIVE CARE UNIT: Empyema, status post decortication. I was asked to see patient in consultation by Dr. Abdirahman Bone. HISTORY OF PRESENT ILLNESS: The patient is a very pleasant 28-year-old white female with a past [facility] history of asthma, migraines, and UTIs. She began developing upper respiratory tract infections i n late September. She has been given several rounds of antibiotics. She did not feel any better, and s he sought medical attention, was admitted to the hospital. She was found to have a large pleural effu reg felt to be an empyema. She was taken to the operating room on October 17, 2018, where she underwe nt a decortication. In discussion, the patient states that overall she is feeling somewhat better. Dottie engel complains of some pleuritic-type chest pain, likely from the chest tube. She is able to take a deep er breath. She denies any current fever or night sweats. No nausea, vomiting, or diarrhea. She is not breathless or hypoxemic at this time. REVIEW OF SYSTEMS: Ten-point review of systems is performed and negative except for what is listed i n HPI. PAST MEDICAL HISTORY: Significant for asthma, migraines, recurrent UTIs. FAMILY HISTORY: Noncontributory. ALLERGIES: Penicillin. SOCIAL HISTORY: No history of tobacco use. Infrequent alcohol use. 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 PHYSICAL EXAM: VITAL SIGNS: Blood pressure is 91/52, pulse 88, respiration 19, temperature 37.3, oxy gen saturation is 96% on 1 L. GENERAL: She is a well-developed, well-nourished 28-year-old white fema le who is resting comfortably, in no acute distress. HEENT: Eyes TARIQ, EOMI. Throat shows no erythema or tonsillar hypertrophy. NECK: Supple. No cervical adenopathy. HEART: Regular rate and rhythm witho ut murmurs or gallops. LUNGS: Show few crackles in left base. Chest tube is in place. ABDOMEN: Soft, nontender. Bowel sounds are present in all 4 quadrants. EXTREMITIES: No clubbing, cyanosis, or edema. LABORATORIES: White count is 24, hemoglobin of 7, hematocrit 29, platelet count is 574. Sodium 132, potassium 4.6, chloride 103, CO2 25, BUN 9, creatinine 0.5. Glucose is 128. IMPRESSION: 1. Empyema, likely streptococcus. 2. Pneumonia. 3. Status post decortication. 4. Chest pain. 5. Dyspnea. RECOMMENDATIONS: 1. Agree with infectious disease consultation. 2. Adequate pain control. 3. Incentive spirometry. 4. Deep venous thrombosis and pulmonary embolism prophylaxis. 5. Stress ulcer prophylaxis. 6. Early ambulation. Thank you very much for allowing me to participate in the care of this interesting patient. Will foll ow along with you. /[id number]/MODL
[2018-10-18] MEDS: CYCLOBENZAPRINE 10 MG TAB PO PRN ×2 (13:27→19:34)
[2018-10-18] MEDS: LORazepam 1 MG TAB PO PRN ×2 (13:44→22:41)
--- NOTE | 2018-10-18 16:36 | ASMTCMCOM ---
CM Note CM Note Notes: Met with Justina. Pt expressed Issues with not being able to pay her rent at [facility]. She has not been working in the past weeks because she has been in hospitals. Pt has no car and is too debilitated to move her things out. Pt just broke up with her Boyfriend. We offer to write a note to her landlord expressing her hardship and she accepted. Pt is living with a friend. CM will continue to monitor Pt's needs PLAN: TBD Date Signed: 10/18/2018 04:35 PM Electronically Signed By:Ilene Newman
--- NOTE | 2018-10-18 17:32 | HOSPPROG ---
Hospitalist Progress Note Assessment/Plan: * Empyema s/p VATS -due to strep anginosis -still with chest tube - very painful - on IV morphine * Sepsis POA -fever, tachycardia, leukocytosis -watch WBC trend - not coming down yet * Acute blood loss anemia -recheck AM - may need transfusion if any lower * Right pleural effusion -consider thoracentesis * Low albumin -consult dietary Subjective: severe pain due to chest tube, crying Objective: Vital Signs Temp Pulse Resp BP Pulse Ox 37.0 C 99 15 95/49 L 97 10/18/18 12:00 10/18/18 16:00 10/18/18 16:00 10/18/18 12:00 10/18/18 16:00 Microbiology 10/17/18 11:51 Gram Stain - Final Lung - Tissue 10/15/18 16:00 Gram Stain - Final Thoracic Fluid - Aspirate Laboratory Results 10/18/18 10:35 10/18/18 05:00 10/17/18 10/18/18 10/19/18 05:59 05:59 05:59 Intake Total 2305 2325 300 Output Total 1370 700 Balance 2305 955 -400 PT 13.0 SEC (12.0-15.0) 10/13/18 10:20 INR 1.02 (0.83-1.16) 10/13/18 10:20 CT chest - loculated effusion on left IV morphine CXR viewed, my personal interpretation is - some effusion on right - Physical Exam Constitutional: uncomfortable, other (crying and freaking out), No not in pain Cardiovascular: regular rate and rhythym, no murmur, rub, or gallop Respiratory: no respiratory distress, no rales or rhonchi, clear to auscultation Gastrointestinal: normoactive bowel sounds, soft, non-tender abdomen, no palpable masses Skin: no rashes or abrasions, no fluctuance, no induration Neurologic: AAOx3, sensation intact bilaterally Psychiatric: anxious, agitated, No interacting appropriately, No encephalopathic ICD10 Worksheet Patient Problems: Problems Problem Status Onset Bilateral pleural effusion Acute Dysuria Acute Hypoxia Acute Pleurisy with effusion Acute Acute appendicitis Acute
[2018-10-18] MEDS: ALPRAZolam 0.5 MG TAB PO PRN (23:28)
[2018-10-19] MEDS: ACETAMINOPHEN 500 MG TAB PO SCH ×3 (03:37→20:08)
[2018-10-19] MEDS: HYDROmorphONE/DILAUDID 1 MG/ML INJ IVP PRN ×2 (03:38→08:22)
[2018-10-19] MEDS: KETOROLAC 15 MG/1 ML SDV IVP SCH ×4 (06:20→23:19)
[2018-10-19 06:38] LABS: PLATELET COUNT 582 10^3/uL (150-400)
--- NOTE | 2018-10-19 08:22 | PCMIDPN ---
Assessment/Plan: # Large Left sided empyema s/p VATS decortication and chest tube placement 10/17 ; micro most c/w strep anginosis group. --Continue ceftriaxone --follow OR cx --appreciate gen surg assistance --at this point not definite to need IV antibiotics at discharge therefore hold off on placement of PICC line --with significant improvement, high risk associated with percutaneous aspiration due to location of fluid on right side in fissure --discussed with patient that she needs ongoing chest tube drainage for another 2-3 days at least due to continued high output Microbiology 10/17/18 11:51 Lung - Tissue Gram Stain : small GPCs, small chains; Cx NGTD 10/15/18 16:00 Thoracic Fluid - Aspirate: gram stain neg; Cx NGTD 10/13/18 13:49 Blood Cx (2): NGTD HIV neg Meds Ceftriaxone 2 g IV daily # 7 Subjective: Patient continues to have intermittent pain related to left-sided chest tube but otherwise her breathing is significantly improved. No diarrhea. Had a bowel movement last night Objective: Vital Signs Temp Pulse Resp BP Pulse Ox 37.9 C 93 20 100/59 L 100 10/19/18 08:00 10/19/18 08:00 10/19/18 08:00 10/19/18 08:00 10/19/18 08:00 Microbiology 10/17/18 11:51 Gram Stain - Final Lung - Tissue 10/15/18 16:00 Gram Stain - Final Thoracic Fluid - Aspirate Laboratory Results 10/19/18 06:20 10/19/18 06:20 10/18/18 10/19/18 10/20/18 05:59 05:59 05:59 Intake Total 2325 3552 Output Total 1370 930 Balance 955 2622 - Physical Exam General Appearance: alert, no apparent distress EENT: pale conjunctiva, No scleral icterus Respiratory: crackles (Scattered crackles left lung field but much improved air movement), other (Normal breath sounds on the right), No accessory muscle use Neck: supple Cardiac/Chest: regular rate, rhythm, other (Chest tube dressing left lateral chest wall was saturated with serosanguineous fluid; chest tube output last 24 hr 230 cc) Extremities: No pedal edema Pelvic Exam: No bonds Skin: warm/dry, pallor, No diaphoresis, No rash Neuro/Psych: alert, normal mood/affect, oriented x 3 - Time Spent With Patient Time Spent with Patient: greater than 35 minutes Time Spent with Patient: Greater than 35 minutes spent on this patients care, greater than 50% of time spent counseling, educating, and coordinating care regarding the above mentioned plan. ICD10 Worksheet Patient Problems: Problems Problem Status Onset Bilateral pleural effusion Acute Dysuria Acute Hypoxia Acute Pleurisy with effusion Acute Acute appendicitis Acute
--- NOTE | 2018-10-19 08:43 | PDINTPN ---
[employer] Officer Progress Note Assessment/Plan: Assessment/plan: * Pneumonia-likely strep -antibiotics per Infectious Disease * Empyema-status post decortication. Chest tube still with a high amount of drainage. -continue chest tube * Pain-reasonably well controlled. * Dyspnea-minimal * VTE prophylaxis * Stress ulcer prophylaxis * Ambulation Subjective: Pain reasonably well controlled. She denies any current dyspnea. Appetite has been good. Overall she feels improved. Objective: Vital Signs Temp Pulse Resp BP Pulse Ox 37.9 C 93 20 100/59 L 100 10/19/18 08:00 10/19/18 08:00 10/19/18 08:00 10/19/18 08:00 10/19/18 08:00 Microbiology 10/17/18 11:51 Gram Stain - Final Lung - Tissue 10/15/18 16:00 Gram Stain - Final Thoracic Fluid - Aspirate Laboratory Results 10/19/18 06:20 10/19/18 06:20 10/18/18 10/19/18 10/20/18 05:59 05:59 05:59 Intake Total 2325 3552 Output Total 1370 930 Balance 955 2622 PT 13.0 SEC (12.0-15.0) 10/13/18 10:20 INR 1.02 (0.83-1.16) 10/13/18 10:20 Chest [id number] by myself. Left-sided chest tube in good position. No pneumothorax is present. Bilateral infiltrates present. - Time Spent With Patient Time Spent With Patient: 35 min of time spent with patient, over 1/2 involved with coordination of care or counseling. Case discussed with Nursing and Infectious Disease Physical Exam - Physical Exam General Appearance: alert, no apparent distress EENT: PERRL/EOMI Neck: non-tender, supple Respiratory: crackles (Increased on left), No respiratory distress, No wheezing Cardiac/Chest: normal peripheral pulses, regular rate, rhythm Peripheral Pulses: 2+: carotid (R), carotid (L), femoral (R), femoral (L), dorsalis-pedis (R), dorsalis-pedis (L) Abdomen: normal bowel sounds, non-tender, soft Pelvic Exam: deferred Rectal: deferred Skin: warm/dry Extremities: non-tender Neuro/Psych: no motor/sensory deficits, alert, normal mood/affect, oriented x 3 ICD10 Worksheet Patient Problems: Problems Problem Status Onset Bilateral pleural effusion Acute Dysuria Acute Hypoxia Acute Pleurisy with effusion Acute Acute appendicitis Acute
--- NOTE | 2018-10-19 08:49 | SOAPPROG ---
SOAP Progress Note Assessment/Plan: Assessment: 28yo F s/p L VATS, decort c CT placement - VSS, HDs. Had a low grade fever last night - CXR this AM looks great, lung is expanded, there is no ptx. CT to WS. Output still high. I dont see a huge collection on the right, would hol doff on tapping it for now given clinical improvement - Reg diet - ABX per ID Plan: 10/19/18 08:48 Subjective: feels better, still having pain at CT site Objective: Vital Signs Temp Pulse Resp BP Pulse Ox 37.9 C 93 20 100/59 L 100 10/19/18 08:00 10/19/18 08:00 10/19/18 08:00 10/19/18 08:00 10/19/18 08:00 Microbiology 10/17/18 11:51 Gram Stain - Final Lung - Tissue 10/15/18 16:00 Gram Stain - Final Thoracic Fluid - Aspirate Laboratory Results 10/19/18 06:20 10/19/18 06:20 10/18/18 10/19/18 10/20/18 05:59 05:59 05:59 Intake Total 2325 3552 Output Total 1370 930 Balance 955 2622 PT 13.0 SEC (12.0-15.0) 10/13/18 10:20 INR 1.02 (0.83-1.16) 10/13/18 10:20 ICD10 Worksheet Patient Problems: Problems Problem Status Onset Bilateral pleural effusion Acute Dysuria Acute Hypoxia Acute Pleurisy with effusion Acute Acute appendicitis Acute
[2018-10-19] MEDS: ENOXAPARIN 40 MG/0.4 ML SYR SC SCH (11:56)
--- NOTE | 2018-10-19 14:41 | ASMTCMCOM ---
CM Note CM Note Notes: Pt discussed in rounds. I attempted to meet with her 3 times and Pt was sleeping. I dropped off a letter written by case management for the hardship Justina is currently experiencing while in the hospital. This is to provide to her Landlord. (copy in chart). Case Management available if needs arise. PLAN: TBD Date Signed: 10/19/2018 02:40 PM Electronically Signed By:Ilene Newman
[2018-10-19] MEDS: CYCLOBENZAPRINE 10 MG TAB PO PRN (15:48)
--- NOTE | 2018-10-19 16:25 | ASMTCMCOM ---
CM Note CM Note Notes: Met with Pt. CM (Maria Luisa)will update the letter to the [facility] and give it to Pt on monday. CM will Contact [facility] to connect with Pt before discharge and they will provide her with referrals. CM available if needs arise. PLAN: TBD Date Signed: 10/19/2018 04:24 PM Electronically Signed By:Ilene Newman
--- NOTE | 2018-10-19 16:30 | HOSPPROG ---
Hospitalist Progress Note Assessment/Plan: * Empyema s/p VATS -due to strep anginosis - IV ceftriaxone -continue chest tube - IV dilaudid for pain control * Sepsis POA -fever, tachycardia, leukocytosis -watch WBC trend - coming down * Acute blood loss anemia -stable * Right pleural effusion -small - no need for thoracentesis * Low albumin -due to acute illness Subjective: Upset about her social situation. Pain control is better than yesterday Objective: Vital Signs Temp Pulse Resp BP Pulse Ox 37.2 C 105 H 22 H 107/73 90 L 10/19/18 15:51 10/19/18 15:51 10/19/18 11:42 10/19/18 15:51 10/19/18 11:42 Microbiology 10/17/18 11:51 Gram Stain - Final Lung - Tissue 10/15/18 16:00 Gram Stain - Final Thoracic Fluid - Aspirate Laboratory Results 10/19/18 06:20 10/19/18 06:20 10/18/18 10/19/18 10/20/18 05:59 05:59 05:59 Intake Total 2325 3552 Output Total 1370 930 Balance 955 2622 PT 13.0 SEC (12.0-15.0) 10/13/18 10:20 INR 1.02 (0.83-1.16) 10/13/18 10:20 - Physical Exam Constitutional: no apparent distress, appears nourished, not in pain Cardiovascular: regular rate and rhythym, no murmur, rub, or gallop Respiratory: no respiratory distress, no rales or rhonchi, clear to auscultation Gastrointestinal: normoactive bowel sounds, soft, non-tender abdomen, no palpable masses Skin: no rashes or abrasions, no fluctuance, no induration Neurologic: AAOx3, sensation intact bilaterally Psychiatric: interacting appropriately, not anxious, not encephalopathic, thought process linear ICD10 Worksheet Patient Problems: Problems Problem Status Onset Acute appendicitis Acute Hypoxia Acute Bilateral pleural effusion Acute Pleurisy with effusion Acute Dysuria Acute
[2018-10-19] MEDS: oxyCODONE IR 5 MG TAB PO PRN ×2 (16:50→21:13)
[2018-10-20] MEDS: CYCLOBENZAPRINE 10 MG TAB PO PRN ×4 (01:19→23:09)
[2018-10-20] MEDS: LORazepam 1 MG TAB PO PRN (01:28)
[2018-10-20] MEDS: ACETAMINOPHEN 500 MG TAB PO SCH ×3 (02:31→19:16)
[2018-10-20] MEDS: oxyCODONE IR 5 MG TAB PO PRN ×4 (02:33→19:41)
[2018-10-20] MEDS: KETOROLAC 15 MG/1 ML SDV IVP SCH ×4 (05:35→23:03)
[2018-10-20 05:56] LABS: PLATELET COUNT 669 10^3/uL (150-400)
--- NOTE | 2018-10-20 08:48 | SOAPPROG ---
SOAP Progress Note Assessment/Plan: 10/18/18 10:23 POD#1 Assessment: Doing quite well, Hct down ( as expected ), VSS, CXR shows tube in good position and possible small right pleural effusion, WBC up thought due to surgery - will follow. Gram pos cocci seen on surgical specimens. On Ceftriaxone. IS only to 1500cc. Plan: Follow CXR Consider right thoracentesis Consider Fu Chest CT if issues persist Continue chest tube suction 10/20/18 08:48 POD#3 Assessment/Plan: Chest - drainage is serosanguineous but still elevated. Air leak noted. Chest tube site inspected and it looks good. Will restart chest tube suction. CXR tomorrow. Infection - WBC up slightly, Platelet count increased, Hopefully sensitivities will be out today. Will get CBC and procalcitonin in AM. May consider Fu CT of Chest Nutrition - Appetite decreased. Oral intake encouraged. No stool x 24 hours - will address tomorrow if necessary. Pain control issue- states Dilaudid makes her hallucinate. On Tylenol and Toradol. will adjust narcotics. would prefer not to use oxy Subjective: I felt like I was hallucinating yesterday morning and I think it was the Dilaudid. Objective: Vital Signs Temp Pulse Resp BP Pulse Ox 36.9 C 65 16 93/57 L 100 10/20/18 08:00 10/20/18 08:00 10/20/18 08:00 10/20/18 08:00 10/20/18 08:00 Microbiology 10/17/18 11:51 Gram Stain - Final Lung - Tissue 10/15/18 16:00 Gram Stain - Final Thoracic Fluid - Aspirate Laboratory Results 10/20/18 04:58 10/19/18 06:20 10/19/18 10/20/18 10/21/18 05:59 05:59 05:59 Intake Total 3552 1430 Output Total 930 155 Balance 2622 1275 PT 13.0 SEC (12.0-15.0) 10/13/18 10:20 INR 1.02 (0.83-1.16) 10/13/18 10:20 - Time Spent With Patient Time Spent With Patient: 25 - Pending Discharge Pending Discharge Within 24 Hours: No Pending Discharge Within 48 Hours: No Physical Exam - Physical Exam General Appearance: WD/WN, alert, no apparent distress Respiratory: chest non-tender, lungs clear, normal breath sounds, other (Chest tube output still moderate (serosanguinious) and a small air leak is noted with cough) Cardiac/Chest: regular rate, rhythm Abdomen: normal bowel sounds, non-tender, soft Pelvic Exam: deferred Rectal: deferred Back: Normal inspection Skin: normal color, warm/dry Neuro/Psych: no motor/sensory deficits, alert, normal mood/affect, oriented x 3 ICD10 Worksheet Patient Problems: Problems Problem Status Onset Bilateral pleural effusion Acute Dysuria Acute Hypoxia Acute Pleurisy with effusion Acute Acute appendicitis Acute
[2018-10-20] MEDS: ENOXAPARIN 40 MG/0.4 ML SYR SC SCH (10:39)
[2018-10-20] MEDS: ALPRAZolam 0.5 MG TAB PO PRN ×2 (10:39→19:41)
--- NOTE | 2018-10-20 15:51 | HOSPPROG ---
Hospitalist Progress Note Assessment/Plan: * Empyema s/p VATS -due to strep anginosis - IV ceftriaxone -still with chest tube * Sepsis POA -fever, tachycardia, leukocytosis -watch WBC trend - coming down * Acute blood loss anemia -stable * Right pleural effusion -small - no need for thoracentesis * Low albumin -due to acute illness * Anxiety/panic disorder -Xanax prn Subjective: Severe anxiety and panic continues, pain in chest wall due to chest tube Objective: Vital Signs Temp Pulse Resp BP Pulse Ox 36.9 C 99 16 102/52 L 98 10/20/18 15:31 10/20/18 15:31 10/20/18 15:31 10/20/18 15:31 10/20/18 15:31 Microbiology 10/17/18 11:51 Gram Stain - Final Lung - Tissue 10/15/18 16:00 Gram Stain - Final Thoracic Fluid - Aspirate Laboratory Results 10/20/18 04:58 10/19/18 06:20 10/19/18 10/20/18 10/21/18 05:59 05:59 05:59 Intake Total 3552 1430 Output Total 930 155 Balance 2622 1275 PT 13.0 SEC (12.0-15.0) 10/13/18 10:20 INR 1.02 (0.83-1.16) 10/13/18 10:20 - Physical Exam Constitutional: no apparent distress, appears nourished, not in pain Cardiovascular: regular rate and rhythym, no murmur, rub, or gallop Respiratory: no respiratory distress, no rales or rhonchi, clear to auscultation Gastrointestinal: normoactive bowel sounds, soft, non-tender abdomen, no palpable masses Skin: no rashes or abrasions, no fluctuance, no induration Neurologic: AAOx3, sensation intact bilaterally Psychiatric: interacting appropriately, not encephalopathic, thought process linear, anxious, depressed, other (very emotional) ICD10 Worksheet Patient Problems: Problems Problem Status Onset Acute appendicitis Acute Hypoxia Acute Bilateral pleural effusion Acute Pleurisy with effusion Acute Dysuria Acute
--- NOTE | 2018-10-20 16:38 | PCMIDPN ---
Assessment/Plan: Assessment: Left-sided empyema secondary to Streptococcus anginosus. Patient on ceftriaxone and experiencing a slow recovery. Still having significant discomfort mostly due to the chest tubes. No fevers. No changes in antibiotic. Plan: 1. Continue ceftriaxone at present dose. 2. Follow clinical improvement. 10/20/18 16:36 Subjective: Patient is resting in her hospital bed. She is experiencing some discomfort with movement secondary to chest tube in referred pleural pain. She denies any fevers or chills. She does admit that things are getting slowly better. Objective: Ceftriaxone # 8 Vital Signs Temp Pulse Resp BP Pulse Ox 36.9 C 99 16 102/52 L 98 10/20/18 15:31 10/20/18 15:31 10/20/18 15:31 10/20/18 15:31 10/20/18 15:31 Microbiology 10/17/18 11:51 Gram Stain - Final Lung - Tissue 10/15/18 16:00 Gram Stain - Final Thoracic Fluid - Aspirate Laboratory Results 10/20/18 04:58 10/19/18 06:20 10/19/18 10/20/18 10/21/18 05:59 05:59 05:59 Intake Total 3552 1430 Output Total 930 155 Balance 2622 1275 - Physical Exam General Appearance: WD/WN, alert, no apparent distress, thin, non-toxic Respiratory: lungs clear, normal breath sounds, No respiratory distress Cardiac/Chest: regular rate, rhythm, other (Chest tube in place left side.), No tachycardia Skin: normal color, warm/dry, No rash Neuro/Psych: alert, normal mood/affect, oriented x 3 ICD10 Worksheet Patient Problems: Problems Problem Status Onset Bilateral pleural effusion Acute Dysuria Acute Hypoxia Acute Pleurisy with effusion Acute Acute appendicitis Acute
[2018-10-20] MEDS: ALBUTEROL 3 ML DEYVIAL IH PRN (19:49)
[2018-10-20] MEDS: LIDOCAINE 4%/MENTHOL 1% PATCH TD SCH (21:46)
[2018-10-20] MEDS: COLCHICINE 0.6 MG CAP/TAB PO SCH (21:46)
[2018-10-20] MEDS ORDERED: ALPRAZolam 0.5 MG TAB PO PRN (22:51)
[2018-10-21] MEDS: ACETAMINOPHEN 500 MG TAB PO SCH ×3 (04:03→18:28)
[2018-10-21] MEDS: oxyCODONE IR 5 MG TAB PO PRN ×5 (04:06→23:09)
[2018-10-21] MEDS: LORazepam 1 MG TAB PO PRN ×2 (04:12→23:09)
[2018-10-21] MEDS: KETOROLAC 15 MG/1 ML SDV IVP SCH ×4 (05:11→23:04)
[2018-10-21 05:14] LABS: PLATELET COUNT 734 10^3/uL (150-400)
--- NOTE | 2018-10-21 08:14 | SOAPPROG ---
SOAP Progress Note Assessment/Plan: 10/18/18 10:23 POD#1 Assessment: Doing quite well, Hct down ( as expected ), VSS, CXR shows tube in good position and possible small right pleural effusion, WBC up thought due to surgery - will follow. Gram pos cocci seen on surgical specimens. On Ceftriaxone. IS only to 1500cc. Plan: Follow CXR Consider right thoracentesis Consider Fu Chest CT if issues persist Continue chest tube suction 10/20/18 08:48 POD#3 Assessment/Plan: Chest - drainage is serosanguineous but still elevated. Air leak noted. Chest tube site inspected and it looks good. Will restart chest tube suction. CXR tomorrow. Infection - WBC up slightly, Platelet count increased, Hopefully sensitivities will be out today. Will get CBC and procalcitonin in AM. May consider Fu CT of Chest Nutrition - Appetite decreased. Oral intake encouraged. No stool x 24 hours - will address tomorrow if necessary. Pain control issue- states Dilaudid makes her hallucinate. On Tylenol and Toradol. will adjust narcotics. would prefer not to use oxy 10/21/18 08:08 Assessment: She had an episode of pain last night due to , I believe, the chest tube that was augmented by anxiety. STAT team called due to tachycardia. Issues resolved. Infection: WBC and Platelets increasing, procalcitonin up. Lungs clear but E to A changes are present near chest tube insertion site ( an area of consolidation seen on CXR. Sensitivities still not available. Nutrition: appetite poor, will check prealbumin. Total lymphocyte count is 2, 700 which should imply adequate nutrition. Plan: CT today to help understand if there are any undrained fluid collections. Follow labs Alter antibiotics if/when appropriate (ID to manage) Subjective: I feel better than last night Objective: Vital Signs Temp Pulse Resp BP Pulse Ox 37.7 C 104 H 16 115/68 96 10/21/18 04:00 10/21/18 04:00 10/21/18 04:00 10/21/18 04:00 10/21/18 04:00 Microbiology 10/17/18 11:51 Gram Stain - Final Lung - Tissue Laboratory Results 10/21/18 04:40 10/19/18 06:20 10/20/18 10/21/18 10/22/18 05:59 05:59 05:59 Intake Total 1430 3350 Output Total 155 2160 Balance 1275 1190 PT 13.0 SEC (12.0-15.0) 10/13/18 10:20 INR 1.02 (0.83-1.16) 10/13/18 10:20 - Time Spent With Patient Time Spent With Patient: 25 - Pending Discharge Pending Discharge Within 24 Hours: No Pending Discharge Within 48 Hours: No Physical Exam - Physical Exam General Appearance: WD/WN, alert, mild distress Respiratory: lungs clear, normal breath sounds (but E to a changes at left lateral base near chest tube site), other (Chest tube has no air leak but 160 cc serous output since midnight) Cardiac/Chest: regular rate, rhythm (Tachycardia has resolved) Abdomen: non-tender, soft Pelvic Exam: deferred Rectal: deferred Back: Normal inspection Skin: normal color, warm/dry Extremities: normal range of motion, non-tender, other (Hard to keep SCDS on this patient) Neuro/Psych: no motor/sensory deficits, alert, normal mood/affect, oriented x 3 ICD10 Worksheet Patient Problems: Problems Problem Status Onset Bilateral pleural effusion Acute Dysuria Acute Hypoxia Acute Pleurisy with effusion Acute Acute appendicitis Acute
[2018-10-21] MEDS ORDERED: IOPAMIDOL (ISOVUE-300) 100 ML BTL ONE ×2 (09:15→09:50)
[2018-10-21] MEDS: PATCH REMOVAL 1 EA PATCH TD SCH (10:11)
[2018-10-21] MEDS: hydrOXYzine HCL 25 MG TAB PO PRN ×2 (10:14→18:28)
[2018-10-21] MEDS: CYCLOBENZAPRINE 10 MG TAB PO PRN ×3 (10:14→22:26)
[2018-10-21] MEDS: ENOXAPARIN 40 MG/0.4 ML SYR SC SCH (10:14)
[2018-10-21] MEDS: COLCHICINE 0.6 MG CAP/TAB PO SCH (10:14)
[2018-10-21] MEDS ORDERED: MAGNESIUM HYDROXIDE 30 ML UDCUP PO PRN (11:44)
[2018-10-21] MEDS ORDERED: LACTULOSE 20 GM/30 ML UDCUP PO PRN (11:44)
[2018-10-21] MEDS ORDERED: POLYETHYLENE GLYCOL 3350 17 GM PKT PO PRN (11:44)
[2018-10-21] MEDS ORDERED: BISACODYL 10 MG SUPP PR PRN (11:44)
[2018-10-21] MEDS ORDERED: LEVALBUTEROL 0.31 MG/3 ML DEYVIAL IH PRN (15:49)
--- NOTE | 2018-10-21 17:16 | PCMIDPN ---
Assessment/Plan: Assessment: Left-sided empyema secondary to probable Streptococcus anginosus group. Patient on ceftriaxone and experiencing a slow recovery. Still having significant discomfort mostly due to the chest tubes. No fevers. Repeat CT today shows what is probably a transudative pleural effusion on the right side and continues to show some residual pleural space disease in the left side. It is unclear whether this is going to require further intervention or whether continued antibiotic use and time will take care of the residual disease. Clinically the patient appears to be improved. I would hold off on any intervention surgically at this point. White blood cell count is slightly elevated over the last 2 days but the minimal elevation could only represent fluctuations in value. Plan: 1. Continue ceftriaxone at present dose. 2. Follow clinical improvement. Subjective: Patient is resting in her hospital bed. She has friends visiting. She states that she is feeling better today than yesterday and feels that she has generally been on the up swing since or Monday. No fevers. Only complains of pain in her left chest secondary to chest tubes. Objective: Ceftriaxone # 9 Vital Signs Temp Pulse Resp BP Pulse Ox 37.2 C 114 H 16 108/79 97 10/21/18 16:00 10/21/18 16:00 10/21/18 16:00 10/21/18 16:00 10/21/18 16:00 Microbiology 10/17/18 11:51 Gram Stain - Final Lung - Tissue Laboratory Results 10/21/18 04:40 10/19/18 06:20 10/20/18 10/21/18 10/22/18 05:59 05:59 05:59 Intake Total 1430 3350 Output Total 155 2160 Balance 1275 1190 - Physical Exam General Appearance: WD/WN, alert, no apparent distress, thin, non-toxic Respiratory: lungs clear, crackles, No respiratory distress, No wheezing Cardiac/Chest: regular rate, rhythm, No tachycardia Skin: normal color, warm/dry, No rash Neuro/Psych: alert, normal mood/affect, oriented x 3 ICD10 Worksheet Patient Problems: Problems Problem Status Onset Bilateral pleural effusion Acute Dysuria Acute Hypoxia Acute Pleurisy with effusion Acute Acute appendicitis Acute
--- NOTE | 2018-10-21 17:25 | HOSPPROG ---
Hospitalist Progress Note Assessment/Plan: * Empyema s/p VATS -due to strep anginosis - IV ceftriaxone -still with chest tube * Sepsis POA -fever, tachycardia, leukocytosis -watch WBC trend * Acute blood loss anemia -stable * Right pleural effusion -small - no need for thoracentesis * Low albumin -due to acute illness * Anxiety/panic disorder -Xanax prn * Severe tachycardia due to Albuterol neb -will change to Xopenex Subjective: Stat team called last night for HR 229, this happened right after neb. She denies acute anxiety contributing Objective: Vital Signs Temp Pulse Resp BP Pulse Ox 37.2 C 114 H 16 108/79 97 10/21/18 16:00 10/21/18 16:00 10/21/18 16:00 10/21/18 16:00 10/21/18 16:00 Microbiology 10/17/18 11:51 Gram Stain - Final Lung - Tissue Laboratory Results 10/21/18 04:40 10/19/18 06:20 10/20/18 10/21/18 10/22/18 05:59 05:59 05:59 Intake Total 1430 3350 Output Total 155 2160 Balance 1275 1190 PT 13.0 SEC (12.0-15.0) 10/13/18 10:20 INR 1.02 (0.83-1.16) 10/13/18 10:20 d/w Cody Knight - he is not that excited about CT findings, too soon to tell CT chest - still residual pockets - Physical Exam Constitutional: no apparent distress, appears nourished, not in pain Cardiovascular: regular rate and rhythym, no murmur, rub, or gallop Respiratory: no respiratory distress, no rales or rhonchi, clear to auscultation Gastrointestinal: normoactive bowel sounds, soft, non-tender abdomen, no palpable masses Skin: no rashes or abrasions, no fluctuance, no induration Neurologic: AAOx3, sensation intact bilaterally Psychiatric: interacting appropriately, not anxious, not encephalopathic, thought process linear ICD10 Worksheet Patient Problems: Problems Problem Status Onset Acute appendicitis Acute Hypoxia Acute Bilateral pleural effusion Acute Pleurisy with effusion Acute Dysuria Acute
[2018-10-21] MEDS: LIDOCAINE 4%/MENTHOL 1% PATCH TD SCH (20:31)
[2018-10-21] MEDS: SENNOSIDES/DOCUSATE SODIUM TAB PO SCH (20:31)
[2018-10-22] MEDS: ACETAMINOPHEN 500 MG TAB PO SCH ×3 (04:16→18:16)
[2018-10-22] MEDS: KETOROLAC 15 MG/1 ML SDV IVP SCH ×4 (05:08→23:10)
[2018-10-22] MEDS: oxyCODONE IR 5 MG TAB PO PRN ×4 (05:51→20:20)
[2018-10-22] MEDS: SENNOSIDES/DOCUSATE SODIUM TAB PO SCH ×2 (08:09→20:10)
[2018-10-22] MEDS: ENOXAPARIN 40 MG/0.4 ML SYR SC SCH (08:09)
[2018-10-22] MEDS: PATCH REMOVAL 1 EA PATCH TD SCH (11:00)
[2018-10-22] MEDS: LORazepam 1 MG TAB PO PRN (11:01)
--- NOTE | 2018-10-22 11:21 | PCMIDPN ---
Assessment/Plan: Assessment/Plan: * Left-sided empyema likely secondary to oropharyngeal streptococci status post VATS: Recurrent fever this a.m. With persistent leukocytosis and CT yesterday showing residual complex appearing fluid in left chest cavity. Suspect this likely will require repeat drainage for full resolution given complexity suggested by imaging and significantly decreased chest tube output. Reviewed with Dr. Rojas with subsequent discussion regarding question of if right-sided pleural fluid could also be infected versus being sympathetic in nature; will proceed with ultrasound-guided thoracentesis to further define in event evidence of infection present such that could be managed operatively if necessary at same time as repeat left-sided VATS. Continue ceftriaxone. Possible repeat VATS anticipated for 10/23/2017. Time spent, greater than 35 min, of which greater than half was spent in education/counseling/coordination of care including care coordination with Dr. Rojas and Dr. Rubio. Clinical findings and recommendations discussed with patient today. 10/22/18 11:18 10/22/18 11:22 Subjective: Patient complains of pain where chest tubes are in place. Limited chest tube output. Patient with fever and chills overnight. Objective: Vital Signs Temp Pulse Resp BP Pulse Ox 37.3 C 118 H 20 116/64 95 10/22/18 08:00 10/22/18 08:00 10/22/18 08:00 10/22/18 08:00 10/22/18 08:00 Microbiology 10/17/18 11:51 Gram Stain - Final Lung - Tissue Laboratory Results 10/21/18 04:40 10/19/18 06:20 10/21/18 10/22/18 10/23/18 05:59 05:59 05:59 Intake Total 3350 Output Total 2160 0 50 Balance 1190 0 -50 Ceftriaxone # 10 T-max 38.6 degrees - Physical Exam General Appearance: alert, no apparent distress, non-toxic EENT: No scleral icterus, No thrush, No conjunctival petechiae Respiratory: other (Decreased breath sounds left and right lung bases) Cardiac/Chest: tachycardia Abdomen: non-tender, No distended ICD10 Worksheet Patient Problems: Problems Problem Status Onset Bilateral pleural effusion Acute Dysuria Acute Hypoxia Acute Pleurisy with effusion Acute Acute appendicitis Acute
[2018-10-22] MEDS: CYCLOBENZAPRINE 10 MG TAB PO PRN ×2 (12:26→23:17)
--- NOTE | 2018-10-22 13:14 | HOSPPROG ---
Hospitalist Progress Note Assessment/Plan: 28y female with SOB. First encounter, chart reviewed. D/W Dr Munguia. * Empyema s/p VATS -likely secondary to oropharyngeal streptococci -status post VATS: -Recurrent fever, persistent leukocytosis -repeat drainage necessary for full resolution -ultrasound-guided thoracentesis of right side -Possible repeat VATS anticipated for 10/23/2018 -continue ceftriaxone -still with chest tube * Sepsis POA -fever, tachycardia, leukocytosis -watch WBC trend * Acute blood loss anemia -stable * Right pleural effusion -small -plan for tap * Low albumin -due to acute illness * Anxiety/panic disorder -Xanax prn * Tachycardia -multifactorial -monitor * Dispo -unclear -continue with plan Subjective: Frustrated. Feeling ok. Still having some discomfort. Objective: Vital Signs Temp Pulse Resp BP Pulse Ox 37.7 C 119 H 18 112/71 93 10/22/18 11:18 10/22/18 11:18 10/22/18 11:18 10/22/18 11:18 10/22/18 11:18 Microbiology 10/17/18 11:51 Gram Stain - Final Lung - Tissue Laboratory Results 10/21/18 04:40 10/19/18 06:20 10/21/18 10/22/18 10/23/18 05:59 05:59 05:59 Intake Total 3350 Output Total 2160 0 50 Balance 1190 0 -50 PT 13.0 SEC (12.0-15.0) 10/13/18 10:20 INR 1.02 (0.83-1.16) 10/13/18 10:20 - Physical Exam Constitutional: appears nourished, not in pain, No obese Eyes: PERRL, anicteric sclera, EOMI Ears, Nose, Mouth, Throat: moist mucous membranes, hearing normal, ears appear normal Cardiovascular: tachycardia, No JVD, No edema Respiratory: no respiratory distress, reduced air movement, rhonchi, other ( chest tube) Gastrointestinal: normoactive bowel sounds, No tenderness, No ascites Skin: warm, normal color, No mottled Musculoskeletal: normal joint ROM, no joint effusions, generalized weakness Neurologic: AAOx3 Psychiatric: not anxious, not encephalopathic, thought process linear ICD10 Worksheet Patient Problems: Problems Problem Status Onset Bilateral pleural effusion Acute Dysuria Acute Hypoxia Acute Pleurisy with effusion Acute Acute appendicitis Acute
[2018-10-22] MEDS ORDERED: LIDOCAINE 1% 300 MG/30 ML SDV ONE (13:32)
--- NOTE | 2018-10-22 16:05 | SOAPPROG ---
SOAP Progress Note Assessment/Plan: 10/18/18 10:23 POD#1 Assessment: Doing quite well, Hct down ( as expected ), VSS, CXR shows tube in good position and possible small right pleural effusion, WBC up thought due to surgery - will follow. Gram pos cocci seen on surgical specimens. On Ceftriaxone. IS only to 1500cc. Plan: Follow CXR Consider right thoracentesis Consider Fu Chest CT if issues persist Continue chest tube suction 10/20/18 08:48 POD#3 Assessment/Plan: Chest - drainage is serosanguineous but still elevated. Air leak noted. Chest tube site inspected and it looks good. Will restart chest tube suction. CXR tomorrow. Infection - WBC up slightly, Platelet count increased, Hopefully sensitivities will be out today. Will get CBC and procalcitonin in AM. May consider Fu CT of Chest Nutrition - Appetite decreased. Oral intake encouraged. No stool x 24 hours - will address tomorrow if necessary. Pain control issue- states Dilaudid makes her hallucinate. On Tylenol and Toradol. will adjust narcotics. would prefer not to use oxy 10/21/ 08:08 Assessment: She had an episode of pain last night due to , I believe, the chest tube that was augmented by anxiety. STAT team called due to tachycardia. Issues resolved. Infection: WBC and Platelets increasing, procalcitonin up. Lungs clear but E to A changes are present near chest tube insertion site ( an area of consolidation seen on CXR. Sensitivities still not available. Nutrition: appetite poor, will check prealbumin. Total lymphocyte count is 2, 700 which should imply adequate nutrition. Plan: CT today to help understand if there are any undrained fluid collections. Follow labs Alter antibiotics if/when appropriate (ID to manage) POD#5 03 15:49 Assessment: CT shows persistent complex fluid collection in left chest and fluid in right chest. As per ID, IR and Hospitalist notes, resolution is not occurring. The concern about the contralateral chest is appropriate. Thoracentesis: Lab reports are as yet incomplete but the pleural WBC count is not excessive, pleural fluid LDH is up to 2K, glucose 76, other results pending. Pre-albumin still pending Hct low, type and screen in progress. Plan: I have asked Dr. Sears to take her to surgery tomorrow for a follow up VATS. Subjective: Patient quite anxious, Pastoral care providing support. Objective: Vital Signs Temp Pulse Resp BP Pulse Ox 37.7 C 119 H 18 112/71 93 10/22/18 11:18 10/22/18 11:18 10/22/18 11:18 10/22/18 11:18 10/22/18 11:18 Microbiology 10/17/18 11:51 Gram Stain - Final Lung - Tissue 10/15/18 16:00 Gram Stain - Final Thoracic Fluid - Aspirate Laboratory Results 10/21/18 04:40 10/21/18 10/22/18 10/23/18 05:59 05:59 05:59 Intake Total 3350 Output Total 2160 0 50 Balance 1190 0 -50 PT 13.0 SEC (12.0-15.0) 10/13/18 10:20 INR 1.02 (0.83-1.16) 10/13/18 10:20 - Time Spent With Patient Time Spent With Patient: 15 - Pending Discharge Pending Discharge Within 24 Hours: No Pending Discharge Within 48 Hours: No Physical Exam - Physical Exam General Appearance: WD/WN, alert, no apparent distress Respiratory: chest non-tender, lungs clear, normal breath sounds, other (old clots in chest tube) Cardiac/Chest: tachycardia Abdomen: normal bowel sounds, non-tender, soft Pelvic Exam: deferred Rectal: deferred Back: Normal inspection Skin: normal color, warm/dry Neuro/Psych: no motor/sensory deficits, alert, normal mood/affect (quite anxious ), oriented x 3 ICD10 Worksheet Patient Problems: Problems Problem Status Onset Bilateral pleural effusion Acute Dysuria Acute Hypoxia Acute Pleurisy with effusion Acute Acute appendicitis Acute
[2018-10-22 16:49] LABS: INR 1.35 (0.83-1.16); PROTIME(PATIENT) 16.1 SEC (12.0-15.0)
[2018-10-22 16:53] LABS: PLATELET COUNT 669 10^3/uL (150-400)
--- NOTE | 2018-10-22 17:10 | ASMTCMCOM ---
CM Note CM Note Notes: Pt to undergo second VATS procedure tomorrow. DC needs TBD. CM spoke with pt in the room. Pt significantly emotionally distressed and tearful. Concerned about how to move her belonging from her apt with lease up at the end of the month when she is hospitalized. Pt is estranged from family in [place]. Agreed to speak with [facility] RN. Order placed by JADE, ron'richard with Dr. Rojas. CM to provide letter to [facility] regarding hospitalization. CM to follow. D/C Plan: TBD, likely independent Date Signed: 10/22/2018 05:02 PM Electronically Signed By:Alyson Moreno
[2018-10-22] MEDS: LIDOCAINE 4%/MENTHOL 1% PATCH TD SCH (20:09)
[2018-10-22] MEDS: hydrOXYzine HCL 25 MG TAB PO PRN (22:50)
[2018-10-22] MEDS: NS 1,000 ML IV SCH (23:11)
[2018-10-23] MEDS: oxyCODONE IR 5 MG TAB PO PRN ×4 (00:14→22:54)
[2018-10-23] MEDS: LORazepam 1 MG TAB PO PRN ×2 (01:50→20:58)
[2018-10-23] MEDS: ACETAMINOPHEN 500 MG TAB PO SCH ×3 (04:12→20:15)
[2018-10-23] MEDS: KETOROLAC 15 MG/1 ML SDV IVP SCH (05:18)
[2018-10-23 05:52] LABS: PLATELET COUNT 577 10^3/uL (150-400)
[2018-10-23] MEDS: SENNOSIDES/DOCUSATE SODIUM TAB PO SCH ×2 (07:37→20:16)
[2018-10-23] MEDS: ENOXAPARIN 40 MG/0.4 ML SYR SC SCH (07:37)
[2018-10-23] MEDS: PATCH REMOVAL 1 EA PATCH TD SCH (08:25)
--- NOTE | 2018-10-23 09:44 | PDHPUP ---
History & Physical Update H&P update statement: This history and physical update is based on an assessment of the patient which was completed after admission or registration (within 24 hours), but prior to the surgery/procedure. H&P update: H&P reviewed & patient examined, changes noted H&P changes: Hb 6 this AM, receiving transfusion now. Will have blood carton stenciler for OR. - to OR for repeat L VATs for persistent residual fluid collection x2. RBA discussed
--- NOTE | 2018-10-23 11:06 | PCMIDPN ---
Assessment/Plan: Assessment/Plan: * Left-sided empyema likely secondary to oropharyngeal streptococci status post VATS: Plans for repeat operative drainage today given persistent residual complex fluid radiographically and ongoing fevers with temperature maximum this a.m. of 39 degrees. Pleural fluid from right side does not appear consistent with empyema. Reviewed surgical plans with Dr. Sears including plans to obtain additional cultures intraoperatively. All prior cultures remain no growth. Continue ceftriaxone. Anticipate placement of PICC line later this week for ongoing care. 10/23/18 11:03 Subjective: Patient with fever this a.m.. No rash or diarrhea. Plans for repeat surgical drainage of left sided empyema today. Receiving packed red blood cells for decreased hematocrit prior to surgery. Objective: Vital Signs Temp Pulse Resp BP Pulse Ox 36.9 C 94 16 102/60 97 10/23/18 08:00 10/23/18 08:00 10/23/18 08:00 10/23/18 08:00 10/23/18 08:00 Microbiology 10/15/18 16:00 Gram Stain - Final Thoracic Fluid - Aspirate Anaerobic Culture - Final 10/22/18 14:00 Gram Stain - Final Pleural Fluid - Aspirate 10/17/18 11:51 Gram Stain - Final Lung - Tissue Laboratory Results 10/23/18 06:12 10/23/18 05:05 10/22/18 10/23/18 10/24/18 05:59 05:59 05:59 Intake Total 2670 Output Total 0 100 Balance 0 2570 Ceftriaxone # 11 Right-sided pleural Gram stain no organisms, culture negative to date Laboratory Tests 10/22/18 14:00 Pleural pH 7.9 H Pleural WBC 106 Pleural RBC 39644 Pleural Neutrophils 50 Pleural Lymphocytes % 49 Pleural Total Protein 3.2 Pleural LDH 2212 Pleural Glucose 76 - Physical Exam General Appearance: alert, no apparent distress, non-toxic EENT: No scleral icterus, No thrush Respiratory: No respiratory distress Cardiac/Chest: regular rate, rhythm, No systolic murmur Abdomen: non-tender, No distended ICD10 Worksheet Patient Problems: Problems Problem Status Onset Bilateral pleural effusion Acute Dysuria Acute Hypoxia Acute Pleurisy with effusion Acute Acute appendicitis Acute
[2018-10-23] MEDS: NS 1,000 ML IV SCH ×2 (11:18→20:58)
[2018-10-23] MEDS ORDERED: BUPIVACAINE/EPI 0.5% 30 ML SDV ONE (13:52)
[2018-10-23] MEDS ORDERED: TALC 3 GM INTRAPLEURAL VIAL ONE (13:53)
[2018-10-23] MEDS ORDERED: LR 1,000 ML IV ONE (14:06)
--- NOTE | 2018-10-23 14:37 | HOSPPROG ---
Hospitalist Progress Note Assessment/Plan: 28y female with SOB. * Empyema s/p VATS -likely secondary to oropharyngeal streptococci -status post VATS: -Recurrent fever, persistent leukocytosis -repeat drainage necessary for full resolution -ultrasound-guided thoracentesis of right side done -repeat VATS anticipated for 10/23/2018 -continue ceftriaxone -still with chest tube * Sepsis POA -fever, tachycardia, leukocytosis -watch WBC trend * Acute blood loss anemia -stable * Right pleural effusion -small -plan for tap * Low albumin -due to acute illness * Anxiety/panic disorder -Xanax prn * Tachycardia -multifactorial -monitor * Dispo -unclear -continue with plan Subjective: Doing ok. Anxious for surgery. Objective: Vital Signs Temp Pulse Resp BP Pulse Ox 37.7 C 96 15 112/74 95 10/23/18 11:22 10/23/18 11:22 10/23/18 11:22 10/23/18 11:22 10/23/18 11:22 Microbiology 10/22/18 14:00 Gram Stain - Final Pleural Fluid - Aspirate 10/17/18 11:51 Gram Stain - Final Lung - Tissue 10/15/18 16:00 Gram Stain - Final Thoracic Fluid - Aspirate Anaerobic Culture - Final Laboratory Results 10/23/18 06:12 10/23/18 05:05 10/22/18 10/23/18 10/24/18 05:59 05:59 05:59 Intake Total 2670 Output Total 0 100 Balance 0 2570 PT 16.1 SEC (12.0-15.0) H 10/22/18 16:20 INR 1.35 (0.83-1.16) H 10/22/18 16:20 - Physical Exam Constitutional: appears nourished, not in pain Eyes: PERRL, anicteric sclera Ears, Nose, Mouth, Throat: moist mucous membranes, hearing normal Cardiovascular: No JVD, No edema Respiratory: no respiratory distress, reduced air movement Gastrointestinal: No tenderness, No ascites Skin: warm, normal color Musculoskeletal: no muscle tenderness, generalized weakness Neurologic: AAOx3 Psychiatric: interacting appropriately, anxious ICD10 Worksheet Patient Problems: Problems Problem Status Onset Acute appendicitis Acute Hypoxia Acute Bilateral pleural effusion Acute Pleurisy with effusion Acute Dysuria Acute
--- NOTE | 2018-10-23 15:21 | PDANEPAE ---
ANE History of Present Illness VATS Left ANE Past Medical History - Cardiovascular History Hx Hypertension: No Hx Arrhythmias: No Hx Chest Pain: No Hx Coronary Artery / Peripheral Vascular Disease: No Hx CHF / Valvular Disease: No Hx Palpitations: No - Pulmonary History Hx COPD: No Hx Asthma/Reactive Airway Disease: No Hx Recent Upper Respiratory Infection: No Hx Oxygen in Use at Home: No Hx Sleep Apnea: No Sleep Apnea Screening Result - Last Documented: Negative - Endocrine History Hx Diabetes: No Hypothyroid: No Hyperthyroid: No Obesity: no - Renal History Hx Renal Disorders: No - Liver History Hx Hepatic Disorders: No - Chronic Pain History Chronic Pain: No ANE Review of Systems Review of Systems: - Exercise capacity METS (RN): 4 METS ANE Patient History - Allergies Allergies/Adverse Reactions: Penicillins Allergy (Verified 10/13/18 09:25) - Home Medications Home Medications: ALPRAZolam [Xanax 0.5 MG (*)] 0.5 mg PO DAILY PRN 10/13/18 [Last Taken Unknown] Albuterol Sulfate [Albuterol Sulfate Hfa] 2 puffs IH QID PRN 10/13/18 [Last Taken 10/12/18] Benzonatate [Tessalon Pearles (RX)] 100 mg PO TID PRN 10/13/18 [Last Taken 10/11] Ciprofloxacin [Cipro] 500 mg PO BID 10/13/18 [Last Taken 10/12/18 PM] - NPO status NPO Status: no food or drink >8 hours NPO Since - Liquids (Date): 10/23/18 NPO Since - Liquids (Time): 00:00 NPO Since - Solids (Date): 10/23/18 NPO Since - Solids (Time): 00:00 - Smoking Hx Smoking Status: Never smoked ANE Labs/Vital Signs - Labs Result Diagrams: 10/23/18 06:12 10/23/18 05:05 - Vital Signs Blood Pressure: 112/74 Heart Rate: 96 Respiratory Rate: 15 O2 Sat (%): 95 Height: 170.18 cm Weight: 54.431 kg ANE Physical Exam - Airway Neck exam: FROM Mallampati Score: Class 1 Mouth exam: normal dental/mouth exam - Cardiovascular Cardiovascular: regular rate and rhythym - ASA Status ASA Status: III ANE Anesthesia Plan Anesthesia Plan: general endotracheal anesthesia Lines/Monitors: arterial line Specialized Airway: double lumen tube
[2018-10-23] MEDS ORDERED: fentaNYL 250 MCG/5 ML INJ ONE (15:31)
[2018-10-23] MEDS ORDERED: PROPOFOL/EMULSION 500 MG/50 ML BOTTLE IV ONE (15:31)
[2018-10-23] MEDS ORDERED: MIDAZOLAM 2 MG/2 ML VIAL ONE (15:34)
[2018-10-23] MEDS ORDERED: MIDAZOLAM 2 MG/2 ML VIAL IVP ONE (15:39)
--- NOTE | 2018-10-23 15:46 | ASMTCMCOM ---
CM Note CM Note Notes: Referral sent to [facility] via e-mail for follow-up post discharge. Letter written for patient's landlord to hopefully extend her lease agreement d/t hospitalization. CM will follow for further needs. Plan: Likely Independent Date Signed: 10/23/2018 03:45 PM Electronically Signed By:Maria Luisa Meza RN
[2018-10-23] MEDS ORDERED: GLYCOPYRROLATE 0.2 MG/1 ML VIAL ONE ×3 (16:35→18:00)
[2018-10-23] MEDS ORDERED: ROCURONIUM 50 MG/5 ML VIAL ONE ×2 (16:35)
[2018-10-23] MEDS ORDERED: fentaNYL 100 MCG/2 ML INJ ONE (17:29)
[2018-10-23] MEDS ORDERED: PROPOFOL 200 MG/20 ML VIAL ONE (17:29)
[2018-10-23] MEDS ORDERED: ONDANSETRON 4 MG/2 ML VIAL IVP PRN (17:32)
[2018-10-23] MEDS ORDERED: fentaNYL 100 MCG/2 ML INJ IVP PRN (17:32)
[2018-10-23] MEDS ORDERED: NALOXONE HCL 0.4 MG/ML INJ IVP PRN (17:32)
[2018-10-23] MEDS ORDERED: PROMETHAZINE HCL 25 MG/ML INJ IVP PRN (17:32)
[2018-10-23] MEDS ORDERED: HYDROmorphONE/DILAUDID 2 MG/ML INJ ONE ×2 (17:41→18:32)
[2018-10-23] MEDS ORDERED: ONDANSETRON 4 MG/2 ML VIAL ONE (18:00)
[2018-10-23] MEDS ORDERED: NEOSTIGMINE METHYLSULFATE 5 MG/5 ML SYR ONE (18:00)
--- NOTE | 2018-10-23 18:08 | POSTOPPROG ---
Post Op Note Date of Operation: 10/23/18 Surgeon: Thony Sears Psychiatric Lpn: Jairon Valente MD Anesthesiologist: Damaso Anesthesia: GET(General Endotracheal) Pre-op Diagnosis: Empyema Post-op Diagnosis: same Procedure: L VATs decortication, partial lung resection Findings: large blood/rind inferiorly evacuated Inf/Abcess present in the surg proc area at time of surgery?: Yes Depth: Organ Space EBL: 50-100 Total fluids administered: 1000cc washout Drains: Other (32R angle, posteriorly 28 apical, anterior) Specimen(s): rind/fluid for culture portion of inferior lobe for path/culture
[2018-10-23] MEDS ORDERED: DEXMEDETOMIDINE HCL 400 MCG in NS 100 ML IV SCH (18:30)
[2018-10-23] MEDS: HYDROmorphONE/DILAUDID 2 MG/ML INJ IVP PRN ×5 (18:40→19:41)
[2018-10-23 18:49] LABS: PLATELET COUNT 517 10^3/uL (150-400)
[2018-10-23 18:58] LABS: INR 1.38 (0.83-1.16); PROTIME(PATIENT) 16.4 SEC (12.0-15.0)
--- NOTE | 2018-10-23 19:40 | GOP ---
[f rep st] OPERATIVE REPORT DATE OF OPERATION: 10/23/2018 SURGEON: Thony Sears MD ELECTRICAL TROUBLESHOOTER: Jairon Valente MD. ANESTHESIA: General endotracheal. ANESTHESIOLOGIST: Bessie Petit MD. PREOPERATIVE DIAGNOSIS: Persistent left chest empyema. POSTOPERATIVE DIAGNOSIS: Persistent left chest empyema. PROCEDURE PERFORMED: 1. Left video-assisted thoracoscopic surgery decortication of lung. 2. Partial inferior left lobe resection. FINDINGS: A large inferolateral abscess/old blood cavity identified, consistent with preoperative CT scan, area completely washed out. Decorticated lung had good expansion at the end of the case. SPECIMENS: Fluid for culture and inferior partial left lobe for culture and pathology. ESTIMATED BLOOD LOSS: 100 cc. DESCRIPTION OF PROCEDURE: The patient was greeted in the preoperative suite. Once again, risks, brisa efits, and alternatives were discussed. Consent was signed. She was then brought back to the operat sarai suite, placed on the OR table in the supine position. After all anesthesia machines including SC Ds were on and functioning, World Health Organization time-out was performed. After successful induc tion of general anesthesia with a dual-lumen tube, the patient was placed in a right lateral decubitu s position with all pressure points appropriately padded. The left chest was prepped and draped in t ypical sterile fashion. I commenced the procedure by using the old chest tube site, which was in the midaxillary line at the inferior chest border. I enlarged this somewhat. I was able to get my fing er within the chest cavity and make a small space through which a thoracoscope was successfully inser ella into the chest. The left lung was dropped, however, there were significant adhesions to the ches t wall, which were successfully taken down bluntly. She had a previous posterolateral trocar site wh ich was opened and a trocar was once again placed within the patient's chest. I did place 1 addition al in the anterior axillary line in the approximate 8th intercostal space. These were all 3 port sit es. Once successfully in the chest, I identified the inferolateral abscess cavity, which appeared to be mostly old blood, but a significant amount of old rind was also identified. I enlarged the previ ous chest tube site approximately 4 inches through the intercostal space. Once successfully in the c hest, I removed all of this old rind and old blood. There was a portion which appeared to be where a n abscess cavity had ruptured in the old inferior lobe which was bleeding significantly and also had an air leak upon testing it and this was successfully resected via stapling it off. It was passed of f for both pathology and culture. We then expanded the lung appropriately and filled the chest cavit y appropriately. I found no other significant findings. The chest cavity was then washed out with s terile saline. Two chest tubes were then brought in via the anterior axillary line. A 28-Luxembourgish was placed apically in the posterior axillary, a 32-Luxembourgish right angle tube was placed along the diaphra gm. Both of these were attached to the skin with interrupted silk suture. They were attached to the Pleur-evac. I closed my mini thoracotomy site in layers, first with 0 Vicryl and 2-0 Vicryl, follow ed by 3-0 Vicryl and edison. A sterile dressing was placed. The patient was then extubated in the operative suite and taken to the PACU in satisfactory condition. DRAINS: There was a 32-Luxembourgish right angle posterior and a 28-Luxembourgish straight apical anterior. COUNTS: All counts were reported as correct x2. /[id number]/MODL
[2018-10-23] MEDS: LIDOCAINE 4%/MENTHOL 1% PATCH TD SCH (20:15)
[2018-10-23] MEDS: hydrOXYzine HCL 25 MG TAB PO PRN (22:55)
[2018-10-24] MEDS: ACETAMINOPHEN 500 MG TAB PO SCH ×3 (04:24→21:30)
[2018-10-24] MEDS: oxyCODONE IR 5 MG TAB PO PRN ×4 (04:34→21:31)
[2018-10-24] MEDS: CYCLOBENZAPRINE 10 MG TAB PO PRN (04:39)
[2018-10-24] MEDS: LORazepam 1 MG TAB PO PRN (06:02)
[2018-10-24] MEDS ORDERED: HYDROmorphONE/DILAUDID 1 MG/ML INJ IVP ONE (06:43)
[2018-10-24] MEDS ORDERED: NALOXONE HCL 0.4 MG/ML INJ IVP PRN (06:43)
[2018-10-24] MEDS: HYDROmorphONE/DILAUDID 6 MG/30 ML PCA IV PRN (07:30)
[2018-10-24 07:37] LABS: PLATELET COUNT 473 10^3/uL (150-400)
--- NOTE | 2018-10-24 07:37 | SOAPPROG ---
SOAP Progress Note Assessment/Plan: Assessment: 28yo F s/p L VATS, decort c CT placement s/p re-do, 2 large bore CTs now - HR better, BP low but likely her baseline. No fevers overnight - recheck labs this AM, Hb was up to 10 last night, unlikely that she will need blood - precedex, dilaudid SPOOL MAKER, Toradol. Working better - leave CT to suction, small 1 chamber exp air leak - cont abx, new cultures taken yesterday Plan: 10/19/18 08:48 10/24/18 07:36 Subjective: more pain this AM Objective: Vital Signs Temp Pulse Resp BP Pulse Ox 36.5 C 88 23 H 88/54 L 97 10/23/18 20:00 10/24/18 06:25 10/24/18 06:25 10/24/18 06:25 10/24/18 06:25 Microbiology 10/23/18 17:21 Gram Stain - Final Lung - Left Lower Lobe 10/23/18 16:30 Gram Stain - Final Chest - Aspirate 10/15/18 16:00 Mycobacterial Smear (JOANNE) - Final Thoracic Fluid - Aspirate 10/22/18 14:00 Gram Stain - Final Pleural Fluid - Aspirate 10/17/18 11:51 Gram Stain - Final Lung - Tissue 10/15/18 16:00 Gram Stain - Final Thoracic Fluid - Aspirate Anaerobic Culture - Final Laboratory Results 10/23/18 18:04 10/23/18 10/24/18 10/25/18 05:59 05:59 05:59 Intake Total 2670 3859.9 Output Total 100 1610 Balance 2570 2249.9 PT 16.4 SEC (12.0-15.0) H 10/23/18 18:04 INR 1.38 (0.83-1.16) H 10/23/18 18:04 ICD10 Worksheet Patient Problems: Problems Problem Status Onset Bilateral pleural effusion Acute Dysuria Acute Hypoxia Acute Pleurisy with effusion Acute Acute appendicitis Acute
[2018-10-24] MEDS: SENNOSIDES/DOCUSATE SODIUM TAB PO SCH ×2 (08:20→21:31)
[2018-10-24] MEDS: PATCH REMOVAL 1 EA PATCH TD SCH (09:04)
[2018-10-24] MEDS: ENOXAPARIN 40 MG/0.4 ML SYR SC SCH (11:08)
[2018-10-24] MEDS: IBUPROFEN 600 MG TAB PO SCH ×2 (11:08→17:17)
--- NOTE | 2018-10-24 11:43 | ASMTCMCOM ---
CM Note CM Note Notes: Pt care discussed in rounds, pt on ICU after surgery for pain control and was on presidex drip (now stopped). No CM needs identified at this time. CM to follow if needs arise. [facility] Plan: Independent Date Signed: 10/24/2018 11:43 AM Electronically Signed By:RULA Banks
[2018-10-24] MEDS ORDERED: KETOROLAC 15 MG/1 ML SDV IVP SCH (12:00)
--- NOTE | 2018-10-24 15:25 | PDINTPN ---
Electrical Design Technologist Progress Note Assessment/Plan: 28 yo F with left-sided empyema status post repeat VATS decortication and chest tube placement 10/23/2018. # empyema, left-sided. No history of recurrent sinopulmonary infections and normal IgE. Doubt common variable immune deficiency or complement deficiency. VATS cord occasion x2 last procedure 10/23/2018. Continues on ceftriaxone. 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 # acute on chronic anemia. Heavy menses + blood loss related to surgery and illness. Non contraception as outpatient. Good candidate for Mirena IUD # sepsis. Source should now be adequately controlled # pain. Postoperative better controlled now PLAN # continue CT to wall suction # continue CTX # trend cbc # counseled on control and recommended to follow up with [facility] for Mirena IUD as she does not like OCPs # care per ID and gen surg IMAGING I reviewed interpreted radiographic images well as formal radiology reads 10/23/2018 left-sided chest tubes in place, left lung still with pleural rind, small left-sided loculated pneumothorax, small of vaso: Consolidation. 10/21/2018 CT chest-significant residual left-sided complex pleural fluid collection, moderate right-sided pleural effusion with some compressive atelectasis 10/13/2018 CTA chest-no PE, pleural effusions some evidence of loculation on left Labs 10/22/2018 thoracentesis, R- pH 7.9, WBCs 106, RBCs 58,600, LDH 2212, pleural glucose 76 10/15/2018 thoracentesis, L PH, 6.9, WBCs 3097, RBCs 484, neutrophils 100%, LDH greater than 10,000, pleural glucose less than 20 Subjective: Under repeat VATS yesterday for uncontrolled infection. Decortication and a 2nd chest tube placement well without infection. Some hypotension overnight. Anemia requiring blood transfusion. Precedex drip overnight. Weaning this a.m.. Mild pain overall feels well, no cough or shortness of breath, no worsening fevers or chills or leg swelling. Objective: Vital Signs Temp Pulse Resp BP Pulse Ox 36.8 C 93 20 100/50 L 96 10/24/18 13:00 10/24/18 13:00 10/24/18 13:00 10/24/18 13:00 10/24/18 13:00 Microbiology 10/22/18 14:00 Gram Stain - Final Pleural Fluid - Aspirate 10/17/18 11:51 Gram Stain - Final Lung - Tissue Anaerobic Culture - Final 10/23/18 17:21 Gram Stain - Final Lung - Left Lower Lobe 10/23/18 16:30 Gram Stain - Final Chest - Aspirate 10/15/18 16:00 Mycobacterial Smear (JOANNE) - Final Thoracic Fluid - Aspirate Laboratory Results 10/24/18 07:30 10/23/18 18:04 10/23/18 10/24/18 10/25/18 05:59 05:59 05:59 Intake Total 2670 3859.9 750 Output Total 100 1610 1350 Balance 2570 2249.9 -600 PT 16.4 SEC (12.0-15.0) H 10/23/18 18:04 INR 1.38 (0.83-1.16) H 10/23/18 18:04 Physical Exam - Physical Exam General Appearance: alert, no apparent distress EENT: PERRL/EOMI, normal ENT inspection Neck: non-tender, full range of motion Respiratory: chest non-tender, lungs clear, normal breath sounds, other (Left- sided chest tubes in place, tidal in) Cardiac/Chest: normal peripheral pulses, regular rate, rhythm Back: Normal inspection Skin: warm/dry, pallor, No cyanosis Extremities: normal range of motion, non-tender, normal inspection Neuro/Psych: no motor/sensory deficits, alert, normal mood/affect, oriented x 3 ICD10 Worksheet Patient Problems: Problems Problem Status Onset Bilateral pleural effusion Acute Dysuria Acute Hypoxia Acute Pleurisy with effusion Acute Acute appendicitis Acute
--- NOTE | 2018-10-24 15:31 | PCMIDPN ---
Assessment/Plan: Assessment: 28-year-old woman with left-sided empyema without microbiologic diagnosis. Recovering from re-do left-sided VATS with decortication yesterday due to persistent fevers and empyema. 1. Left-sided empyema without microbiologic diagnosis 2. Status post left-sided VATS procedure with decortication and partial left lower lobe resection; 10/23/2018 3. Status post left-sided VATS procedure with decortication; 10/17/2018 4. Thrombocytosis secondary to 1. 5. Acute kidney injury present on admission, resolved Plan: 1. Continue ceftriaxone 2 g daily 2. Will evaluate for stop date of ceftriaxone pending chest tube removal 3. Reviewed in detail potential side effects of beta-lactam antibiotics to include: allergy, rash, nausea, antibiotic-associated diarrhea, Clostridioides difficile colitis. Taqueria Valencia MD Infectious Diseases 10/24/18 15:35 Subjective: Fevers overnight but none in the visitor services assistant. Predominant complaint is left- sided chest pain at the site of chest tube insertions. No bowel movement since surgery yesterday for re-do left-sided VATS. No rash while receiving antibiotics. Objective: Vital Signs Temp Pulse Resp BP Pulse Ox 36.8 C 93 20 100/50 L 96 10/24/18 13:00 10/24/18 13:00 10/24/18 13:00 10/24/18 13:00 10/24/18 13:00 Microbiology 10/22/18 14:00 Gram Stain - Final Pleural Fluid - Aspirate 10/17/18 11:51 Gram Stain - Final Lung - Tissue Anaerobic Culture - Final 10/23/18 17:21 Gram Stain - Final Lung - Left Lower Lobe 10/23/18 16:30 Gram Stain - Final Chest - Aspirate 10/15/18 16:00 Mycobacterial Smear (JOANNE) - Final Thoracic Fluid - Aspirate Laboratory Results 10/24/18 07:30 10/23/18 18:04 10/23/18 10/24/18 10/25/18 05:59 05:59 05:59 Intake Total 2670 3859.9 750 Output Total 100 1610 1350 Balance 2570 2249.9 -600 Medications Generic Name Dose Route Start Last Admin Trade Name Freq PRN Reason Stop Dose Admin Ceftriaxone Sodium 2 gm/ 50 mls @ 100 mls/hr 10/14/18 09:00 10/24/18 09:02 Sodium Chloride IV 11/13/18 08:59 50 mls DAILY TOSHIA Protocol Discontinued Medications Generic Name Dose Route Start Last Admin Trade Name Beryl PRN Reason Stop Dose Admin Azithromycin 500 mg/ Dextrose 255 mls @ 255 mls/hr 10/13/18 12:59 10/13/18 14 :28 IV 10/13/18 13:58 255 mls EDNOW ONE Protocol Azithromycin 500 mg/ Sodium 255 mls @ 255 mls/hr 10/14/18 09:00 10/16/18 08: 05 Chloride IV 11/13/18 08:59 255 mls DAILY TOSHIA Protocol Ceftriaxone Sodium/Dextrose 50 mls @ 100 mls/hr 10/13/18 12:59 10/13/18 13:15 Rocephin 1 Gm (Premix) IV 10/13/18 13:28 50 mls EDNOW ONE Protocol Microbiology 10/23/18 17:21 Lung - Left Lower Lobe Gram Stain - Final 10/23/18 16:30 Chest - Aspirate Gram Stain - Final 10/22/18 14:00 Pleural Fluid - Aspirate Gram Stain - Final 10/17/18 11:51 Lung - Tissue Gram Stain - Final 10/17/18 11:51 Lung - Tissue Anaerobic Culture - Final 10/15/18 16:00 Thoracic Fluid - Aspirate Mycobacterial Smear (JOANNE) - Final 10/22/18 14:00 Pleural Fluid - Aspirate Anaerobic Culture - Preliminary 10/17/18 11:51 Lung - Tissue Fungal Culture - Preliminary 10/15/18 16:00 Thoracic Fluid - Aspirate Mycobacterial Culture - Preliminary Laboratory Tests 10/13/18 10/16/18 10/18/18 12:04 10:20 05:00 WBC Hgb Plt Count Absolute Neuts (auto) Absolute Lymphs (auto) Absolute Eos (auto) Creatinine Total Protein Albumin Urine WBC 15-25 H IgG 1140 IgA 240 IgM 46 HIV 1&2 Antibody NEGATIVE 10/23/18 10/23/18 10/23/18 05:05 05:05 06:12 WBC 13.73 H Hgb 6.0 L Plt Count 577 H Absolute Neuts (auto) 9.55 H Absolute Lymphs (auto) 3.09 H Absolute Eos (auto) Creatinine 0.5 L Total Protein 5.6 L Albumin 2.1 L Urine WBC IgG IgA IgM HIV 1&2 Antibody 10/23/18 10/23/18 10/24/18 18:04 18:04 07:30 WBC 18.20 H 14.09 H Hgb 9.7 L 7.7 L Plt Count 517 H 473 H Absolute Neuts (auto) 14.81 H 9.70 H Absolute Lymphs (auto) 2.15 2.79 Absolute Eos (auto) 0.04 0.24 Creatinine 0.5 L Total Protein Albumin Urine WBC IgG IgA IgM HIV 1&2 Antibody - Physical Exam General Appearance: no apparent distress, No non-toxic EENT: No scleral icterus Respiratory: No respiratory distress, No accessory muscle use, No crackles, No wheezing Neck: full range of motion, supple Cardiac/Chest: No bradycardia, No tachycardia, No diastolic murmur, No systolic murmur (Normal S1-S2) Extremities: No erythema Abdomen: soft, No distended, No guarding (Hypoactive bowel sounds) Skin: No erythema Neuro/Psych: alert, oriented x 3, depressed affect, No confused - Time Spent With Patient Time Spent with Patient: greater than 35 minutes Time Spent with Patient: Greater than 35 minutes spent on this patients care, greater than 50% of time spent counseling, educating, and coordinating care regarding the above mentioned plan. ICD10 Worksheet Patient Problems: Problems Problem Status Onset Bilateral pleural effusion Acute Dysuria Acute Hypoxia Acute Pleurisy with effusion Acute Acute appendicitis Acute
--- NOTE | 2018-10-24 15:51 | HOSPPROG ---
Hospitalist Progress Note Assessment/Plan: # L empyema status post VATS decortication x2 - continue ceftriaxone 2 g - pain control # R pleural effusion s/p thora - not c/w empyema # ABLA s/p 1U PRBC # sepsis - resolving Subjective: She has questions regarding the VATS procedure; sitting in chair; hungry Objective: Vital Signs Temp Pulse Resp BP Pulse Ox 36.8 C 93 20 100/50 L 96 10/24/18 13:00 10/24/18 13:00 10/24/18 13:00 10/24/18 13:00 10/24/18 13:00 Microbiology 10/23/18 17:21 Mycobacterial Smear (JOANNE) - Final Lung - Left Lower Lobe 10/23/18 16:30 Mycobacterial Smear (JOANNE) - Final Chest - Aspirate 10/22/18 14:00 Gram Stain - Final Pleural Fluid - Aspirate 10/17/18 11:51 Gram Stain - Final Lung - Tissue Anaerobic Culture - Final 10/23/18 17:21 Gram Stain - Final Lung - Left Lower Lobe 10/23/18 16:30 Gram Stain - Final Chest - Aspirate 10/15/18 16:00 Mycobacterial Smear (JOANNE) - Final Thoracic Fluid - Aspirate Laboratory Results 10/24/18 07:30 10/23/18 18:04 10/23/18 10/24/18 10/25/18 05:59 05:59 05:59 Intake Total 2670 3859.9 750 Output Total 100 1610 1350 Balance 2570 2249.9 -600 PT 16.4 SEC (12.0-15.0) H 10/23/18 18:04 INR 1.38 (0.83-1.16) H 10/23/18 18:04 Chart reviewed Chest x-ray personally reviewed CT scan personally reviewed - Physical Exam Constitutional: no apparent distress, appears nourished Ears, Nose, Mouth, Throat: hearing normal, ears appear normal Cardiovascular: regular rate and rhythym, no murmur, rub, or gallop Respiratory: no respiratory distress, reduced air movement (Left-sided), inspiratory crackles, other (2 chest tubes on left side), No expiratory wheeze Gastrointestinal: soft, non-tender abdomen, no palpable masses, No guarding, No rebound ICD10 Worksheet Patient Problems: Problems Problem Status Onset Acute appendicitis Acute Hypoxia Acute Bilateral pleural effusion Acute Pleurisy with effusion Acute Dysuria Acute
--- NOTE | 2018-10-24 17:11 | POSTANESTH ---
Post Anesthetic Evaluation Cardiovascular Status: Normal, Stable, Similar to Pre-Op Cond Respiratory Status: Similar to Pre-op Cond. Level of Consciousness/Mental Status: Can Participate in Eval Pain Control: Adequate, Prn Tx Ordered Nausea/Vomiting Control: Adequate, Prn Tx Ordered Complications Possibly Related to Anesthesia: None Noted, Other, See Comments ( Sore throat from endobronchial tube. Hgb 7.7 today.)
[2018-10-24] MEDS: hydrOXYzine HCL 25 MG TAB PO PRN (17:17)
[2018-10-24] MEDS: LIDOCAINE 4%/MENTHOL 1% PATCH TD SCH (21:31)
[2018-10-25] MEDS: LORazepam 1 MG TAB PO PRN ×2 (00:22→10:49)
[2018-10-25] MEDS: HYDROmorphONE/DILAUDID 6 MG/30 ML PCA IV PRN (00:30)
[2018-10-25] MEDS: IBUPROFEN 600 MG TAB PO SCH ×4 (00:46→17:11)
[2018-10-25] MEDS: ACETAMINOPHEN 500 MG TAB PO SCH ×3 (04:57→20:32)
[2018-10-25 07:59] LABS: PLATELET COUNT 533 10^3/uL (150-400)
--- NOTE | 2018-10-25 09:44 | PCMIDPN ---
Assessment/Plan: Assessment: 28-year-old woman with left-sided empyema without microbiologic diagnosis. Recovering from re-do left-sided VATS with decortication 10.23.18 due to persistent fevers and empyema. Overall improved with no ongoing evidence for systemic infection or uncontrolled infectious source. Negative microbiology from surgical samples obtained 10.23 suggestive of sterilization of source. 1. Left-sided empyema without microbiologic diagnosis; gram positive cocci on gram stain of lung sample from 10.17.18 2. Status post left-sided VATS procedure with decortication and partial left lower lobe resection; 10/23/2018 3. Status post left-sided VATS procedure with decortication; 10/17/2018 4. Thrombocytosis secondary to 1; expected to resolve with a lag behind resolution of elevated WBC count 5. Acute kidney injury present on admission, resolved Plan: 1. Decreased ceftriaxone to 1gm daily while chest tube in place 2. Will evaluate for stop date of ceftriaxone pending chest tube removal 3. Reviewed in detail potential side effects of beta-lactam antibiotics to include: allergy, rash, nausea, antibiotic-associated diarrhea, Clostridioides difficile colitis. Taqueria Valencia MD Infectious Diseases 10/25/18 09:49 Subjective: No fever or chills in the past 24-hours. Woke with mild diaphoresis in the night but no soaking night sweats. Able to ambulate to the restroom with assistance. Chest tube causing minimal discomfort. Occasional cough with small amount of sputum production. No bowel movement in approximately 48-hours; passing some flatus. No rash. Areas on tongue causing altered taste but no pain. Objective: Vital Signs Temp Pulse Resp BP Pulse Ox 36.5 C 91 17 93/60 L 94 10/25/18 07:50 10/25/18 07:50 10/25/18 07:50 10/25/18 07:50 10/25/18 07:50 Microbiology 10/23/18 16:30 Gram Stain - Final Chest - Aspirate 10/23/18 17:21 Gram Stain - Final Lung - Left Lower Lobe 10/23/18 17:21 Mycobacterial Smear (JOANNE) - Final Lung - Left Lower Lobe 10/23/18 16:30 Mycobacterial Smear (JOANNE) - Final Chest - Aspirate 10/22/18 14:00 Gram Stain - Final Pleural Fluid - Aspirate 10/17/18 11:51 Gram Stain - Final Lung - Tissue Anaerobic Culture - Final Laboratory Results 10/25/18 07:30 10/23/18 18:04 10/24/18 10/25/18 10/26/18 05:59 05:59 05:59 Intake Total 3859.9 4119.0 Output Total 1610 1750 Balance 2249.9 2369.0 Medications Generic Name Dose Route Start Last Admin Trade Name Freq PRN Reason Stop Dose Admin Ceftriaxone Sodium 2 gm/ 50 mls @ 100 mls/hr 10/14/18 09:00 10/24/18 09:02 Sodium Chloride IV 11/13/18 08:59 50 mls DAILY TOSHIA Protocol Microbiology 10/23/18 17:21 Lung - Left Lower Lobe Gram Stain - Final 10/23/18 17:21 Lung - Left Lower Lobe Anaerobic Culture - Preliminary 10/17/18 11:51 Lung - Tissue Fungal Culture - Preliminary Laboratory Tests 10/23/18 10/23/18 10/23/18 05:05 18:04 18:04 WBC 18.20 H Plt Count 517 H Creatinine 0.5 L 0.5 L Total Protein 5.6 L Albumin 2.1 L 10/24/18 10/25/18 07:30 07:30 WBC 14.09 H 11.35 H Plt Count 473 H 533 H Creatinine Total Protein Albumin - Physical Exam General Appearance: no apparent distress EENT: other (scattered papular toungue lesions without thrush), No scleral icterus Respiratory: No respiratory distress, No accessory muscle use, No crackles, No wheezing (Audible inspiratory sounds to the base on the right; diminshed inpsiratory sounds on the left) Neck: full range of motion, supple Cardiac/Chest: No bradycardia, No tachycardia, No diastolic murmur, No systolic murmur (Normal S1 and S2) Skin: No erythema Neuro/Psych: alert, oriented x 3, depressed affect, No confused - Time Spent With Patient Time Spent with Patient: greater than 25 minutes (dicussed in detail infectious cause of empyema and expected recovery, antibiotic side effects and role of antibiotics while chest tube remains in place) Time Spent with Patient: Greater than 25 minutes spent on this patients care, greater than 50% of time spent counseling, educating, and coordinating care regarding the above mentioned plan. ICD10 Worksheet Patient Problems: Problems Problem Status Onset Bilateral pleural effusion Acute Dysuria Acute Hypoxia Acute Pleurisy with effusion Acute Acute appendicitis Acute
[2018-10-25] MEDS: ENOXAPARIN 40 MG/0.4 ML SYR SC SCH (10:11)
[2018-10-25] MEDS: SENNOSIDES/DOCUSATE SODIUM TAB PO SCH ×2 (10:22→20:35)
--- NOTE | 2018-10-25 10:49 | HOSPPROG ---
Hospitalist Progress Note Assessment/Plan: # Left empyema s/p VATS decortication x2, most recent 10/23 - continue ceftriaxone 2 g, ID following - pain control: d/c dilaudid BOXING INSPECTOR at pt request, will use prn oxy plus IV morphine for breakthrough pain # R pleural effusion s/p thora - not c/w empyema # hypoxemia - 2/2 above - wean O2 as able # ABLA s/p 1U PRBC # sepsis - resolving Full code Dispo - cont inpt, SDU, transfer to med/surg tomorrow if stable overnight from pain control standpoint Subjective: Pt had a rough night with poor pain control. Did not feel the dilaudid was helpful. Wound up on Precedex, which is off this am. Objective: Vital Signs Temp Pulse Resp BP Pulse Ox 36.5 C 91 17 93/60 L 94 10/25/18 07:50 10/25/18 07:50 10/25/18 07:50 10/25/18 07:50 10/25/18 07:50 Microbiology 10/23/18 16:30 Gram Stain - Final Chest - Aspirate 10/23/18 17:21 Gram Stain - Final Lung - Left Lower Lobe 10/23/18 17:21 Mycobacterial Smear (JOANNE) - Final Lung - Left Lower Lobe 10/23/18 16:30 Mycobacterial Smear (JOANNE) - Final Chest - Aspirate 10/22/18 14:00 Gram Stain - Final Pleural Fluid - Aspirate 10/17/18 11:51 Gram Stain - Final Lung - Tissue Anaerobic Culture - Final Laboratory Results 10/25/18 07:30 10/23/18 18:04 10/24/18 10/25/18 10/26/18 05:59 05:59 05:59 Intake Total 3859.9 4119.0 Output Total 1610 1750 Balance 2249.9 2369.0 PT 16.4 SEC (12.0-15.0) H 10/23/18 18:04 INR 1.38 (0.83-1.16) H 10/23/18 18:04 - Physical Exam Constitutional: no apparent distress Eyes: PERRL Ears, Nose, Mouth, Throat: moist mucous membranes Cardiovascular: regular rate and rhythym Respiratory: no respiratory distress, inspiratory crackles Gastrointestinal: normoactive bowel sounds, soft, non-tender abdomen Skin: warm Musculoskeletal: full muscle strength Neurologic: AAOx3 Psychiatric: interacting appropriately ICD10 Worksheet Patient Problems: Problems Problem Status Onset Bilateral pleural effusion Acute Dysuria Acute Hypoxia Acute Pleurisy with effusion Acute Acute appendicitis Acute
[2018-10-25] MEDS: oxyCODONE IR 5 MG TAB PO PRN ×5 (10:50→23:31)
[2018-10-25] MEDS: PATCH REMOVAL 1 EA PATCH TD SCH (11:06)
--- NOTE | 2018-10-25 12:01 | SOAPPROG ---
SOAP Progress Note Assessment/Plan: Assessment: 28yo F s/p L VATS, decort c CT placement s/p re-do, 2 large bore CTs now - Vitals better, no fevers - pain is well controlled, PO oxycodone. Precedex weaned. - CTs with appropriate out. Dressing change today. No air leak, waiting on CXR. - Ambulate, reg diet, abx per ID. Keep CTs. Making great progress Plan: 10/19/18 08:48 10/24/18 07:36 10/25/18 11:59 Subjective: feels better, pain is controlled Objective: Vital Signs Temp Pulse Resp BP Pulse Ox 36.6 C 98 18 113/75 90 L 10/25/18 11:54 10/25/18 11:54 10/25/18 11:54 10/25/18 11:54 10/25/18 11:54 Microbiology 10/22/18 14:00 Gram Stain - Final Pleural Fluid - Aspirate 10/23/18 16:30 Gram Stain - Final Chest - Aspirate 10/23/18 17:21 Gram Stain - Final Lung - Left Lower Lobe 10/23/18 17:21 Mycobacterial Smear (JOANNE) - Final Lung - Left Lower Lobe 10/23/18 16:30 Mycobacterial Smear (JOANNE) - Final Chest - Aspirate 10/17/18 11:51 Gram Stain - Final Lung - Tissue Anaerobic Culture - Final Laboratory Results 10/25/18 07:30 10/23/18 18:04 10/24/18 10/25/18 10/26/18 05:59 05:59 05:59 Intake Total 3859.9 4119.0 Output Total 1610 1750 Balance 2249.9 2369.0 PT 16.4 SEC (12.0-15.0) H 10/23/18 18:04 INR 1.38 (0.83-1.16) H 10/23/18 18:04 ICD10 Worksheet Patient Problems: Problems Problem Status Onset Bilateral pleural effusion Acute Dysuria Acute Hypoxia Acute Pleurisy with effusion Acute Acute appendicitis Acute
[2018-10-25] MEDS ORDERED: HYDROCORTISONE 2.5% 30 GM CRTUBE TP PRN (12:09)
--- NOTE | 2018-10-25 12:13 | PDINTPN ---
Child Life Specialist Progress Note Assessment/Plan: 28 yo F with left-sided empyema status post VATS decortication x 2 now clinically improving. # empyema, left-sided. VATS cord occasion x2 last procedure 10/23/2018. Continues on ceftriaxone. 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 Doubt common variable immune deficiency or complement deficiency. # acute on chronic anemia. Heavy menses + blood loss related to surgery and illness. Non contraception as outpatient. Good candidate for Mirena IUD. Fe replete based on normal Ferritin # sepsis. Source should now be adequately controlled # pain. Postoperative better controlled now PLAN # continue CT to wall suction # continue CTX # trend cbc # counseled on control and recommended to follow up with [facility] for Mirena IUD as she does not like OCPs # PT/OT # care per ID and gen surg IMAGING I reviewed interpreted radiographic images well as formal radiology reads 10/23/2018 left-sided chest tubes in place, left lung still with pleural rind, small left-sided loculated pneumothorax, small of vaso: Consolidation. 10/21/2018 CT chest-significant residual left-sided complex pleural fluid collection, moderate right-sided pleural effusion with some compressive atelectasis 10/13/2018 CTA chest-no PE, pleural effusions some evidence of loculation on left Labs 10/22/2018 thoracentesis, R- pH 7.9, WBCs 106, RBCs 58,600, LDH 2212, pleural glucose 76 10/15/2018 thoracentesis, L PH, 6.9, WBCs 3097, RBCs 484, neutrophils 100%, LDH greater than 10,000, pleural glucose less than 20 Subjective: Clinically improved after repeat VATS decortication. Pain better controlled although had difficulties last night and required briefly required Precedex drip. Weaned off this morning without issue. No new fevers, chills, nausea vomiting. Mild left-sided chest pain. Objective: Vital Signs Temp Pulse Resp BP Pulse Ox 36.6 C 98 18 113/75 90 L 10/25/18 11:54 10/25/18 11:54 10/25/18 11:54 10/25/18 11:54 10/25/18 11:54 Microbiology 10/22/18 14:00 Gram Stain - Final Pleural Fluid - Aspirate 10/23/18 16:30 Gram Stain - Final Chest - Aspirate 10/23/18 17:21 Gram Stain - Final Lung - Left Lower Lobe 10/23/18 17:21 Mycobacterial Smear (JOANNE) - Final Lung - Left Lower Lobe 10/23/18 16:30 Mycobacterial Smear (JOANNE) - Final Chest - Aspirate 10/17/18 11:51 Gram Stain - Final Lung - Tissue Anaerobic Culture - Final Laboratory Results 10/25/18 07:30 10/23/18 18:04 10/24/18 10/25/18 10/26/18 05:59 05:59 05:59 Intake Total 3859.9 4119.0 Output Total 1610 1750 Balance 2249.9 2369.0 PT 16.4 SEC (12.0-15.0) H 10/23/18 18:04 INR 1.38 (0.83-1.16) H 10/23/18 18:04 Physical Exam - Physical Exam General Appearance: alert, no apparent distress EENT: PERRL/EOMI, normal ENT inspection Neck: non-tender, full range of motion Respiratory: lungs clear, other (Left-sided chest tubes in place.), No respiratory distress, No accessory muscle use Cardiac/Chest: normal peripheral pulses, regular rate, rhythm, No edema Abdomen: normal bowel sounds, non-tender, soft Back: Normal inspection Skin: normal color, warm/dry, No cyanosis Extremities: normal range of motion, non-tender Neuro/Psych: no motor/sensory deficits, alert, normal mood/affect, oriented x 3 ICD10 Worksheet Patient Problems: Problems Problem Status Onset Bilateral pleural effusion Acute Dysuria Acute Hypoxia Acute Pleurisy with effusion Acute Acute appendicitis Acute
[2018-10-25] MEDS: LIDOCAINE 4%/MENTHOL 1% PATCH TD SCH (22:24)
[2018-10-26] MEDS: LORazepam 1 MG TAB PO PRN (00:54)
[2018-10-26] MEDS: IBUPROFEN 600 MG TAB PO SCH ×5 (01:25→22:52)
[2018-10-26] MEDS: ACETAMINOPHEN 500 MG TAB PO SCH ×3 (05:05→20:32)
[2018-10-26 05:26] LABS: PLATELET COUNT 525 10^3/uL (150-400)
--- NOTE | 2018-10-26 08:44 | PCMIDPN ---
Assessment/Plan: # Large Left sided empyema s/p VATs 10/17 and repeat VATs and decort on 10/23 ; only gram stain positive from 10/17 but has not grown so far. Appearance most c/ w strep. All path c/w infection. No fever since 10/23, wbc trending down also. R sided effusion not c/w empyema. Reviewed chest x-ray from yesterday --shooting for total 3-4 weeks total on antibiotics, ok to dc on PO Augmentin or moxifloxacin for another approximately 10-14 days --i keep forgetting to assess PCN allergy, so unclear if she could tolerate Augmentin --declining chest tube output, surgery to determine when appropriate to remove chest tubes. Microbiology 10/23 Pleural fluid: gram stain neg; Cx: NGTD 10/23 Lung tissue gram stain neg; cx: NGTD 10/17 Lung - Tissue Gram Stain : small GPCs, small chains; Cx NGTD 10/15 Thoracic Fluid - Aspirate: gram stain neg; Cx NGTD 10/13 Blood Cx (2): Neg HIV neg Meds Ceftriaxone 1 g IV daily #14 Subjective: reports pain associated w second surgery worse Objective: Vital Signs Temp Pulse Resp BP Pulse Ox 36.8 C 79 24 H 106/65 98 10/26/18 08:00 10/26/18 08:00 10/26/18 08:00 10/26/18 08:00 10/26/18 08:00 Microbiology 10/23/18 17:21 Gram Stain - Final Lung - Left Lower Lobe 10/22/18 14:00 Gram Stain - Final Pleural Fluid - Aspirate 10/23/18 16:30 Gram Stain - Final Chest - Aspirate Laboratory Results 10/26/18 05:17 10/23/18 18:04 10/25/18 10/26/18 10/27/18 05:59 05:59 05:59 Intake Total 4119.0 622 500 Output Total 1750 150 50 Balance 2369.0 472 450 - Physical Exam General Appearance: alert, no apparent distress EENT: pale conjunctiva, No scleral icterus Respiratory: other (fairly good air movement L hemithorax; 2 CT connected with Y , serosang drainage), No accessory muscle use Neck: supple Cardiac/Chest: regular rate, rhythm Extremities: No pedal edema Skin: pallor, No diaphoresis, No jaundice, No rash Neuro/Psych: alert, normal mood/affect, oriented x 3 - Time Spent With Patient Time Spent with Patient: greater than 35 minutes (Care coordinated with nursing and Critical Care) Time Spent with Patient: Greater than 35 minutes spent on this patients care, greater than 50% of time spent counseling, educating, and coordinating care regarding the above mentioned plan. ICD10 Worksheet Patient Problems: Problems Problem Status Onset Bilateral pleural effusion Acute Dysuria Acute Hypoxia Acute Pleurisy with effusion Acute Acute appendicitis Acute
[2018-10-26] MEDS: oxyCODONE IR 5 MG TAB PO PRN ×3 (09:06→22:51)
[2018-10-26] MEDS: SENNOSIDES/DOCUSATE SODIUM TAB PO SCH ×2 (09:08→20:32)
[2018-10-26] MEDS: ENOXAPARIN 40 MG/0.4 ML SYR SC SCH (09:40)
[2018-10-26] MEDS: PATCH REMOVAL 1 EA PATCH TD SCH (12:03)
--- NOTE | 2018-10-26 12:21 | PDINTPN ---
Chinchilla Machine Operator Progress Note Assessment/Plan: 28 yo F with left-sided empyema status post VATS decortication x 2 now clinically improving. # empyema, left-sided. VATS cord occasion x2 last procedure 10/23/2018. Continues on ceftriaxone. 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 Doubt common variable immune deficiency or complement deficiency. # acute on chronic anemia. Heavy menses + blood loss related to surgery and illness. Non contraception as outpatient. Good candidate for Mirena IUD. Fe replete based on normal Ferritin # sepsis. Source should now be adequately controlled # pain. Postoperative better controlled now PLAN # may consider removing 1 of 2 pleural drains tomorrow and if continues with low output remove the other # continue CTX # agree with Dr Rodgers regarding Augmentin is I doubt patient has reported penicillin allergy is actually a true allergy given history. # trend cbc # OP follow up on control and menorrhagia # PT/OT # care per ID and gen surg # transfer to floor today IMAGING I reviewed interpreted radiographic images well as formal radiology reads 10/23/2018 left-sided chest tubes in place, left lung still with pleural rind, small left-sided loculated pneumothorax, small of vaso: Consolidation. 10/21/2018 CT chest-significant residual left-sided complex pleural fluid collection, moderate right-sided pleural effusion with some compressive atelectasis 10/13/2018 CTA chest-no PE, pleural effusions some evidence of loculation on left Labs 10/22/2018 thoracentesis, R- pH 7.9, WBCs 106, RBCs 58,600, LDH 2212, pleural glucose 76 10/15/2018 thoracentesis, L PH, 6.9, WBCs 3097, RBCs 484, neutrophils 100%, LDH greater than 10,000, pleural glucose less than 20 Subjective: Still some pain overnight but better controlled. Thinks she may have had a rash as a child with a penicillin antibiotic for strep but cannot remember. Denies anaphylaxis. No new fevers, chills, nausea vomiting. Excited to have chest tubes out. Objective: Vital Signs Temp Pulse Resp BP Pulse Ox 36.8 C 79 24 H 106/65 98 10/26/18 08:00 10/26/18 08:00 10/26/18 08:00 10/26/18 08:00 10/26/18 08:00 Microbiology 10/23/18 17:21 Gram Stain - Final Lung - Left Lower Lobe 10/23/18 16:30 Gram Stain - Final Chest - Aspirate 10/22/18 14:00 Gram Stain - Final Pleural Fluid - Aspirate Laboratory Results 10/26/18 05:17 10/23/18 18:04 10/25/18 10/26/18 10/27/18 05:59 05:59 05:59 Intake Total 4119.0 622 500 Output Total 1750 150 50 Balance 2369.0 472 450 PT 16.4 SEC (12.0-15.0) H 10/23/18 18:04 INR 1.38 (0.83-1.16) H 10/23/18 18:04 Physical Exam - Physical Exam General Appearance: alert, no apparent distress EENT: PERRL/EOMI, normal ENT inspection Neck: non-tender, full range of motion Respiratory: chest non-tender, lungs clear, normal breath sounds, other (Left- sided chest tubes in place, clotted bloody fluid in tube 24 output from both tubes 150 cc) Cardiac/Chest: normal peripheral pulses, regular rate, rhythm, No edema Abdomen: non-tender, soft Skin: normal color, warm/dry, No cyanosis Neuro/Psych: no motor/sensory deficits, alert, normal mood/affect, oriented x 3 ICD10 Worksheet Patient Problems: Problems Problem Status Onset Bilateral pleural effusion Acute Dysuria Acute Hypoxia Acute Pleurisy with effusion Acute Acute appendicitis Acute
--- NOTE | 2018-10-26 12:46 | SOAPPROG ---
SOAP Progress Note Assessment/Plan: Assessment: 28yo F s/p L VATS, decort c CT placement s/p re-do, 2 large bore CTs now - vitals still stable, afebrile - pain is controlled - CXR yest shows persistent apical ptx, CTs to suction. Will plan to waterseal today. Likely remove right angle tube tomorrow, keep apical for another day or so - Cx still NGTD, Abx per ID. WBC improving each day - hoping both tubes out end of weekend, early next week. Hopefully transition to home on PO abx Plan: 10/19/18 08:48 10/24/18 07:36 10/25/18 11:59 10/26/18 12:37 Subjective: feels well, pain is controlled. Objective: Vital Signs Temp Pulse Resp BP Pulse Ox 36.8 C 79 24 H 106/65 98 10/26/18 08:00 10/26/18 08:00 10/26/18 08:00 10/26/18 08:00 10/26/18 08:00 Microbiology 10/23/18 17:21 Gram Stain - Final Lung - Left Lower Lobe 10/23/18 16:30 Gram Stain - Final Chest - Aspirate 10/22/18 14:00 Gram Stain - Final Pleural Fluid - Aspirate Laboratory Results 10/26/18 05:17 10/23/18 18:04 10/25/18 10/26/18 10/27/18 05:59 05:59 05:59 Intake Total 4119.0 622 500 Output Total 1750 150 50 Balance 2369.0 472 450 PT 16.4 SEC (12.0-15.0) H 10/23/18 18:04 INR 1.38 (0.83-1.16) H 10/23/18 18:04 ICD10 Worksheet Patient Problems: Problems Problem Status Onset Bilateral pleural effusion Acute Dysuria Acute Hypoxia Acute Pleurisy with effusion Acute Acute appendicitis Acute
--- NOTE | 2018-10-26 12:57 | HOSPPROG ---
Hospitalist Progress Note Assessment/Plan: # Left empyema s/p VATS decortication x2, most recent 10/23 - continue ceftriaxone 2 g, ID following, can d/c on po augmentin vs moxifloxacin for additional 10-14 days - pt communicated with parents and they do not recall a specific pcn allergy as a child - pain control: prn oxy plus IV morphine for breakthrough pain - decreased chest tube output, surgery managing, may be able to dc in next 1- 2 days # R pleural effusion s/p thora - not c/w empyema # hypoxemia - 2/2 above - wean O2 as able # ABLA s/p 1U PRBC # sepsis - resolving Full code Dispo - cont inpt, transfer to med/surg Subjective: Pt feels ok. Pain better controlled. No cough, CP, or SOB. No fevers. Objective: Vital Signs Temp Pulse Resp BP Pulse Ox 36.8 C 79 24 H 106/65 98 10/26/18 08:00 10/26/18 08:00 10/26/18 08:00 10/26/18 08:00 10/26/18 08:00 Microbiology 10/23/18 17:21 Gram Stain - Final Lung - Left Lower Lobe 10/23/18 16:30 Gram Stain - Final Chest - Aspirate 10/22/18 14:00 Gram Stain - Final Pleural Fluid - Aspirate Laboratory Results 10/26/18 05:17 10/23/18 18:04 10/25/18 10/26/18 10/27/18 05:59 05:59 05:59 Intake Total 4119.0 622 500 Output Total 1750 150 50 Balance 2369.0 472 450 PT 16.4 SEC (12.0-15.0) H 10/23/18 18:04 INR 1.38 (0.83-1.16) H 10/23/18 18:04 - Physical Exam Constitutional: no apparent distress Eyes: PERRL Ears, Nose, Mouth, Throat: moist mucous membranes Cardiovascular: regular rate and rhythym Respiratory: no respiratory distress, clear to auscultation Gastrointestinal: normoactive bowel sounds, soft, non-tender abdomen Skin: warm Musculoskeletal: full muscle strength Neurologic: AAOx3 Psychiatric: interacting appropriately ICD10 Worksheet Patient Problems: Problems Problem Status Onset Bilateral pleural effusion Acute Dysuria Acute Hypoxia Acute Pleurisy with effusion Acute Acute appendicitis Acute
[2018-10-26] MEDS: LIDOCAINE 4%/MENTHOL 1% PATCH TD SCH (20:55)
[2018-10-27] MEDS: oxyCODONE IR 5 MG TAB PO PRN ×5 (01:27→20:02)
[2018-10-27] MEDS: LORazepam 1 MG TAB PO PRN ×2 (01:27→08:53)
[2018-10-27 05:53] LABS: PLATELET COUNT 598 10^3/uL (150-400)
[2018-10-27] MEDS: ACETAMINOPHEN 500 MG TAB PO SCH ×3 (06:45→20:00)
[2018-10-27] MEDS: IBUPROFEN 600 MG TAB PO SCH ×3 (06:45→17:10)
[2018-10-27] MEDS: ENOXAPARIN 40 MG/0.4 ML SYR SC SCH (08:53)
[2018-10-27] MEDS: SENNOSIDES/DOCUSATE SODIUM TAB PO SCH ×2 (08:53→20:04)
--- NOTE | 2018-10-27 09:20 | HOSPPROG ---
Hospitalist Progress Note Assessment/Plan: # Left empyema s/p VATS decortication x2, most recent 10/23 - continue ceftriaxone 2 g, ID following, can d/c on orals - pt communicated with parents and they do not recall a specific PCN-allergy - pain control: prn oxy plus IV morphine for breakthrough pain -DC chest tube per Surgery #Right apical PTX: cont chest tubes # R pleural effusion s/p thora - not c/w empyema #Acute hypoxic resp insufficiency: due to above # ABLA s/p 1U PRBC #Sepsis: resolved #Diet: regular #DVT ppx: Lovenox Disp: inpatient admission for IV abx Subjective: "frustrated" Objective: Vital Signs Temp Pulse Resp BP Pulse Ox 36.8 C 92 15 108/70 97 10/27/18 08:00 10/27/18 08:00 10/27/18 08:00 10/27/18 08:00 10/27/18 08:00 Microbiology 10/23/18 17:21 Gram Stain - Final Lung - Left Lower Lobe 10/23/18 16:30 Gram Stain - Final Chest - Aspirate 10/22/18 14:00 Gram Stain - Final Pleural Fluid - Aspirate Laboratory Results 10/27/18 05:34 10/23/18 18:04 10/26/18 10/27/18 10/28/18 05:59 05:59 05:59 Intake Total 622 2100 Output Total 150 50 Balance 472 2050 PT 16.4 SEC (12.0-15.0) H 10/23/18 18:04 INR 1.38 (0.83-1.16) H 10/23/18 18:04 - Time Spent With Patient Time Spent with Patient: greater than 35 minutes Time Spent with Patient: Greater than 35 minutes spent on this patients care, greater than 50% of time spent counseling, educating, and coordinating care regarding the above mentioned plan. - Physical Exam Constitutional: no apparent distress Eyes: PERRL Ears, Nose, Mouth, Throat: moist mucous membranes Cardiovascular: regular rate and rhythym Respiratory: other (left-sided chest tubes) Gastrointestinal: other (CT tubes) Genitourinary: no bladder fullness Skin: warm Musculoskeletal: full muscle strength Neurologic: AAOx3, CN II-XII Intact Psychiatric: flat affect ICD10 Worksheet Patient Problems: Problems Problem Status Onset Bilateral pleural effusion Acute Dysuria Acute Hypoxia Acute Pleurisy with effusion Acute Acute appendicitis Acute
--- NOTE | 2018-10-27 09:57 | SOAPPROG ---
SOAP Progress Note Assessment/Plan: Assessment: afebrile/ labs stable/ wound ok/ uo ok/ cxr pending/ minimal ct out heent ok chest clear and symmetric/ cor rr abd soft Plan:fu cxr/ hopefully tubes out soon 10/27/18 09:55 Objective: Vital Signs Temp Pulse Resp BP Pulse Ox 36.8 C 92 15 108/70 97 10/27/18 08:00 10/27/18 08:00 10/27/18 08:00 10/27/18 08:00 10/27/18 08:00 Microbiology 10/23/18 17:21 Gram Stain - Final Lung - Left Lower Lobe 10/23/18 16:30 Gram Stain - Final Chest - Aspirate 10/22/18 14:00 Gram Stain - Final Pleural Fluid - Aspirate Laboratory Results 10/27/18 05:34 10/23/18 18:04 10/26/18 10/27/18 10/28/18 05:59 05:59 05:59 Intake Total 622 2100 Output Total 150 50 Balance 472 2050 PT 16.4 SEC (12.0-15.0) H 10/23/18 18:04 INR 1.38 (0.83-1.16) H 10/23/18 18:04 ICD10 Worksheet Patient Problems: Problems Problem Status Onset Bilateral pleural effusion Acute Dysuria Acute Hypoxia Acute Pleurisy with effusion Acute Acute appendicitis Acute
[2018-10-27] MEDS: PATCH REMOVAL 1 EA PATCH TD SCH (10:42)
--- NOTE | 2018-10-27 11:41 | PDINTPN ---
Wire Spooler Progress Note Assessment/Plan: 28 yo F with left-sided empyema status post VATS decortication x 2 now clinically improving. # empyema, left-sided. VATS cord occasion x2 last procedure 10/23/2018. Continues on ceftriaxone. 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 Doubt common variable immune deficiency or complement deficiency. # acute on chronic anemia. Heavy menses + blood loss related to surgery and illness. Non contraception as outpatient. Good candidate for Mirena IUD. Fe replete based on normal Ferritin # sepsis. Source should now be adequately controlled # pain. Postoperative better controlled now PLAN # will likely be able to remove chest tubes this weekend # continue CTX # agree with Dr Rodgers regarding Augmentin is I doubt patient has reported penicillin allergy is actually a true allergy given history. # minimize blood draws # OP follow up on menorrhagia and control # PT/OT # care per ID and gen surg # transfer to floor today IMAGING I reviewed interpreted radiographic images well as formal radiology reads 10/23/2018 left-sided chest tubes in place, left lung still with pleural rind, small left-sided loculated pneumothorax, small of vaso: Consolidation. 10/21/2018 CT chest-significant residual left-sided complex pleural fluid collection, moderate right-sided pleural effusion with some compressive atelectasis 10/13/2018 CTA chest-no PE, pleural effusions some evidence of loculation on left Labs 10/22/2018 thoracentesis, R- pH 7.9, WBCs 106, RBCs 58,600, LDH 2212, pleural glucose 76 10/15/2018 thoracentesis, L PH, 6.9, WBCs 3097, RBCs 484, neutrophils 100%, LDH greater than 10,000, pleural glucose less than 20 Subjective: Chest tubes clot otherwise side overnight. Lewis and changes this a.m. With improvement. However still with minimal output. Continues to improve. Still mild pain insertion sites. Overall improving. Ambulating well. No new fevers , chills, nausea vomiting. Leukocytosis trending down. Objective: Vital Signs Temp Pulse Resp BP Pulse Ox 36.8 C 92 15 108/70 97 10/27/18 08:00 10/27/18 08:00 10/27/18 08:00 10/27/18 08:00 10/27/18 08:00 Microbiology 10/23/18 17:21 Gram Stain - Final Lung - Left Lower Lobe 10/23/18 16:30 Gram Stain - Final Chest - Aspirate 10/22/18 14:00 Gram Stain - Final Pleural Fluid - Aspirate Laboratory Results 10/27/18 05:34 10/23/18 18:04 10/26/18 10/27/18 10/28/18 05:59 05:59 05:59 Intake Total 622 2100 Output Total 150 50 Balance 472 2050 PT 16.4 SEC (12.0-15.0) H 10/23/18 18:04 INR 1.38 (0.83-1.16) H 10/23/18 18:04 Physical Exam - Physical Exam General Appearance: alert, no apparent distress EENT: PERRL/EOMI, normal ENT inspection Neck: non-tender, full range of motion, supple Respiratory: chest non-tender, lungs clear, normal breath sounds, other (Left- sided chest tubes in place. Clotted blood in tube) Cardiac/Chest: normal peripheral pulses, regular rate, rhythm, No edema Abdomen: normal bowel sounds, non-tender, No soft Skin: warm/dry, pallor, No cyanosis Extremities: normal range of motion, non-tender, normal inspection Neuro/Psych: no motor/sensory deficits, alert, normal mood/affect, oriented x 3 ICD10 Worksheet Patient Problems: Problems Problem Status Onset Bilateral pleural effusion Acute Dysuria Acute Hypoxia Acute Pleurisy with effusion Acute Acute appendicitis Acute
--- NOTE | 2018-10-27 13:58 | ASMTCMCOM ---
CM Note CM Note Notes: Met with patient to discuss d/c planning, although she still has two chest tubes and d/c date is TBD. Her PCP is Dr Hussein at [facility], so she will need an appt w her. She will also f/u w Dr Rodgers (has an appt Weds 10/31 which she will need to cancel if still hospitalized) and Dr Valente. I explained that each provider will tell her when she needs to schedule f/u. She is interested in a RX for outpatient PT because she feels she is very deconditioned. I told her we could get her this prior to d/c as well. I faxed a medical note to her apartment's leasing office, asking for an extension on her lease. Patient has the original letter in case we need to re-send. Case Management will follow. Date Signed: 10/27/2018 01:57 PM Electronically Signed By:Ellen March RN
--- NOTE | 2018-10-27 17:53 | PCMIDPN ---
Assessment/Plan: Assessment: 28-year-old woman with left-sided empyema without microbiologic diagnosis. Overall improving but continues to require chest tubes with drainage. Confirmed that the with the penicillin allergy as a rash may not be true as her parents do not recall this reaction. She is willing to try oral amoxicillin as her long-term strategy for treatment of this infection. 1. Left-sided empyema without microbiologic diagnosis; gram positive cocci on gram stain of lung sample from 10.17.18 2. Status post left-sided VATS procedure with decortication and partial left lower lobe resection; 10/23/2018 3. Status post left-sided VATS procedure with decortication; 10/17/2018 4. Thrombocytosis secondary to 1; expected to resolve with a lag behind resolution of elevated WBC count 5. Acute kidney injury present on admission, resolved Plan: 1. Stop ceftriaxone 2. Start amoxicillin 500 mg p.o. Twice daily 3. Reviewed in detail potential side effects of beta-lactam antibiotics to include: allergy, rash, nausea, antibiotic-associated diarrhea, Clostridioides difficile colitis. Taqueria Valencia MD Infectious Diseases 10/27/18 17:52 Subjective: No fever or chills in the past 24-hours. She does continue to have night sweats. Tolerating oral diet with solids and liquids. No diarrhea, nausea, or other GI symptoms. No rash. Appetite improving. Ambulating without difficulty. Transfer to the medical floor with 2 chest tubes remaining in place on the left. Objective: Vital Signs Temp Pulse Resp BP Pulse Ox 37.1 C 97 14 123/67 H 89 L 10/27/18 15:33 10/27/18 15:33 10/27/18 15:33 10/27/18 15:33 10/27/18 15:33 Microbiology 10/23/18 17:21 Gram Stain - Final Lung - Left Lower Lobe 10/23/18 16:30 Gram Stain - Final Chest - Aspirate 10/22/18 14:00 Gram Stain - Final Pleural Fluid - Aspirate Laboratory Results 10/27/18 05:34 10/23/18 18:04 10/26/18 10/27/18 10/28/18 05:59 05:59 05:59 Intake Total 622 2100 Output Total 150 50 Balance 472 1820 Medications Generic Name Dose Route Start Last Admin Trade Name Freq PRN Reason Stop Dose Admin Amoxicillin 500 mg 10/28/18 09:00 Amoxicillin PO 11/27/18 08:59 BID TOSHIA Protocol Discontinued Medications Generic Name Dose Route Start Last Admin Trade Name Beryl PRN Reason Stop Dose Admin Ceftriaxone Sodium/Dextrose 50 mls @ 100 mls/hr 10/25/18 10:00 10/27/18 08:53 Rocephin 1 Gm (Premix) IV 11/24/18 09:59 50 mls DAILY TOSHIA Laboratory Tests 10/23/18 10/25/18 10/27/18 18:04 07:30 05:34 WBC 18.20 H 9.62 H Hgb 9.7 L 7.9 L Plt Count 533 H 598 H - Physical Exam General Appearance: no apparent distress, non-toxic EENT: No scleral icterus Respiratory: No respiratory distress, No accessory muscle use Neck: full range of motion, supple Extremities: No erythema Skin: No erythema Neuro/Psych: alert, oriented x 3, depressed affect, No confused - Time Spent With Patient Time Spent with Patient: greater than 25 minutes Time Spent with Patient: Greater than 25 minutes spent on this patients care, greater than 50% of time spent counseling, educating, and coordinating care regarding the above mentioned plan. ICD10 Worksheet Patient Problems: Problems Problem Status Onset Bilateral pleural effusion Acute Dysuria Acute Hypoxia Acute Pleurisy with effusion Acute Acute appendicitis Acute
[2018-10-27] MEDS: LIDOCAINE 4%/MENTHOL 1% PATCH TD SCH (21:36)
[2018-10-28] MEDS: oxyCODONE IR 5 MG TAB PO PRN ×5 (00:04→18:52)
[2018-10-28] MEDS: IBUPROFEN 600 MG TAB PO SCH ×4 (00:04→18:53)
[2018-10-28] MEDS: ACETAMINOPHEN 500 MG TAB PO SCH ×3 (04:02→21:26)
[2018-10-28] MEDS: LORazepam 1 MG TAB PO PRN ×2 (04:18→13:04)
[2018-10-28] MEDS: ENOXAPARIN 40 MG/0.4 ML SYR SC SCH (12:58)
[2018-10-28] MEDS: SENNOSIDES/DOCUSATE SODIUM TAB PO SCH ×2 (12:58→20:03)
--- NOTE | 2018-10-28 13:35 | HOSPPROG ---
Hospitalist Progress Note Assessment/Plan: # Left empyema s/p VATS decortication x2, most recent 10/23 - changed to Amoxicillin - pt communicated with parents and they do not recall a specific PCN-allergy -chest tubes decreased output, may come out today #Right apical PTX: cont chest tubes # R pleural effusion s/p thora - not c/w empyema #Acute hypoxic resp insufficiency: due to above # ABLA s/p 1U PRBC #Sepsis: resolved #Diet: regular #DVT ppx: Lovenox Disp: inpatient admission with chest tubes. DC once cleared from surgical standpoint Subjective: slept better last night. pain left chest tube site this morning Objective: Vital Signs Temp Pulse Resp BP Pulse Ox 36.8 C 67 15 103/7 L 96 10/28/18 08:00 10/28/18 08:00 10/28/18 08:00 10/28/18 08:00 10/28/18 08:00 Microbiology 10/23/18 17:21 Gram Stain - Final Lung - Left Lower Lobe 10/23/18 16:30 Gram Stain - Final Chest - Aspirate Laboratory Results 10/28/18 04:35 10/23/18 18:04 10/27/18 10/28/18 10/29/18 05:59 05:59 05:59 Intake Total 2100 500 Output Total 50 40 Balance 0 500 -40 PT 16.4 SEC (12.0-15.0) H 10/23/18 18:04 INR 1.38 (0.83-1.16) H 10/23/18 18:04 - Time Spent With Patient Time Spent with Patient: greater than 35 minutes Time Spent with Patient: Greater than 35 minutes spent on this patients care, greater than 50% of time spent counseling, educating, and coordinating care regarding the above mentioned plan. - Physical Exam Constitutional: no apparent distress Eyes: PERRL Ears, Nose, Mouth, Throat: moist mucous membranes Cardiovascular: regular rate and rhythym Respiratory: reduced air movement (at left base. Chest tubes in place) Gastrointestinal: normoactive bowel sounds Genitourinary: No bonds in urethra Skin: warm Musculoskeletal: full muscle strength Neurologic: AAOx3, CN II-XII Intact Psychiatric: interacting appropriately ICD10 Worksheet Patient Problems: Problems Problem Status Onset Bilateral pleural effusion Acute Dysuria Acute Hypoxia Acute Pleurisy with effusion Acute Acute appendicitis Acute
[2018-10-28] MEDS: PATCH REMOVAL 1 EA PATCH TD SCH (14:03)
--- NOTE | 2018-10-28 14:08 | SOAPPROG ---
SOAP Progress Note Assessment/Plan: Assessment: afebrile/ labs stable/ wound ok/ uo ok/ cxr pending/ minimal ct out heent ok chest clear and symmetric/ cor rr abd soft Plan:fu cxr/ hopefully tubes out soon 10/27/18 09:55 10/28/18 14:07 AFEBRILE, MINIMAL DRAINAGE/ WOUNDS OK/ CXR OK / WILL DC TUBES TODAY Objective: Vital Signs Temp Pulse Resp BP Pulse Ox 36.8 C 67 15 103/7 L 96 10/28/18 08:00 10/28/18 08:00 10/28/18 08:00 10/28/18 08:00 10/28/18 08:00 Microbiology 10/23/18 17:21 Gram Stain - Final Lung - Left Lower Lobe 10/23/18 16:30 Gram Stain - Final Chest - Aspirate Laboratory Results 10/28/18 04:35 10/23/18 18:04 10/27/18 10/28/18 10/29/18 05:59 05:59 05:59 Intake Total 2100 500 Output Total 50 40 Balance 2050 500 -40 PT 16.4 SEC (12.0-15.0) H 10/23/18 18:04 INR 1.38 (0.83-1.16) H 10/23/18 18:04 ICD10 Worksheet Patient Problems: Problems Problem Status Onset Bilateral pleural effusion Acute Dysuria Acute Hypoxia Acute Pleurisy with effusion Acute Acute appendicitis Acute
--- NOTE | 2018-10-28 14:47 | PCMIDPN ---
Assessment/Plan: Assessment: 28-year-old woman with left-sided empyema without microbiologic diagnosis. Plan to continue oral amoxicillin through the time of chest tube removal. 1. Left-sided empyema without microbiologic diagnosis; gram positive cocci on gram stain of lung sample from 10.17.18 2. Status post left-sided VATS procedure with decortication and partial left lower lobe resection; 10/23/2018 3. Status post left-sided VATS procedure with decortication; 10/17/2018 4. Thrombocytosis secondary to 1; expected to resolve with a lag behind resolution of elevated WBC count 5. Acute kidney injury present on admission, resolved Plan: 1. Continue amoxicillin 500 mg p.o. Twice daily through the date of chest tube removal 2. Reviewed in detail potential side effects of beta-lactam antibiotics to include: allergy, rash, nausea, antibiotic-associated diarrhea, Clostridioides difficile colitis. Taqueria Valencia MD Infectious Diseases 10/28/18 14:43 Subjective: No fever or chills. Continue with night sweats. Significant pain on the left side of the chest tube insertion sites this afternoon as she had slept through the entire morning and has not had any analgesic medications since about 4:00 a.m.. She has no other concerns other than wanting to know when the chest tube will be removed. Objective: Vital Signs Temp Pulse Resp BP Pulse Ox 36.8 C 67 15 103/7 L 96 10/28/18 08:00 10/28/18 08:00 10/28/18 08:00 10/28/18 08:00 10/28/18 08:00 Microbiology 10/23/18 17:21 Gram Stain - Final Lung - Left Lower Lobe 10/23/18 16:30 Gram Stain - Final Chest - Aspirate Laboratory Results 10/28/18 04:35 10/23/18 18:04 10/27/18 10/28/18 10/29/18 05:59 05:59 05:59 Intake Total 2100 500 Output Total 50 40 Balance 2050 500 -40 Medications Generic Name Dose Route Start Last Admin Trade Name Freq PRN Reason Stop Dose Admin Amoxicillin 500 mg 10/28/18 09:00 10/28/18 12:57 Amoxicillin PO 11/27/18 08:59 500 mg BID [facility] Protocol Laboratory Tests 10/16/18 10/23/1819 10:20 05:05 18:04 WBC 18.20 H Plt Count 517 H Creatinine 0.5 L HIV 1&2 Antibody NEGATIVE 10/23/18 10/27/18 18:04 05:34 WBC 9.62 H Plt Count 598 H Creatinine 0.5 L HIV 1&2 Antibody - Physical Exam General Appearance: other (Grimacing and significant pain due to chest tubes on the left side) EENT: No scleral icterus Neuro/Psych: alert, oriented x 3, depressed affect, No confused ICD10 Worksheet Patient Problems: Problems Problem Status Onset Bilateral pleural effusion Acute Dysuria Acute Hypoxia Acute Pleurisy with effusion Acute Acute appendicitis Acute
[2018-10-28] MEDS: LIDOCAINE 4%/MENTHOL 1% PATCH TD SCH (21:30)
[2018-10-29] MEDS: IBUPROFEN 600 MG TAB PO SCH ×4 (00:24→18:09)
[2018-10-29] MEDS: oxyCODONE IR 5 MG TAB PO PRN ×4 (00:32→20:16)
[2018-10-29] MEDS: ACETAMINOPHEN 500 MG TAB PO SCH ×3 (05:42→20:14)
--- NOTE | 2018-10-29 09:35 | SOAPPROG ---
SOAP Progress Note Assessment/Plan: Assessment: 28yo F s/p L VATS, decort c CT placement s/p re-do, 2 large bore CTs now - VSS, afebrile - CXR today looks good, nothing new. - Tube sites leaked a fair amt, removed and re-dressed this AM, drainage will slow. - abx per ID - Pt says home tomorrow, I am onboard with that. Plan: 10/19/18 08:48 10/24/18 07:36 10/25/18 11:59 10/26/18 12:37 10/29/18 09:34 Subjective: feels better each day Objective: Vital Signs Temp Pulse Resp BP Pulse Ox 36.9 C 77 16 115/81 H 94 10/29/18 08:55 10/29/18 08:55 10/29/18 08:55 10/29/18 08:55 10/29/18 08:55 Laboratory Results 10/28/18 04:35 10/23/18 18:04 10/28/18 10/29/18 10/30/18 05:59 05:59 05:59 Intake Total 500 1500 Output Total 40 Balance 500 1460 PT 16.4 SEC (12.0-15.0) H 10/23/18 18:04 INR 1.38 (0.83-1.16) H 10/23/18 18:04 ICD10 Worksheet Patient Problems: Problems Problem Status Onset Bilateral pleural effusion Acute Dysuria Acute Hypoxia Acute Pleurisy with effusion Acute Acute appendicitis Acute
[2018-10-29] MEDS ORDERED: diphenhydrAMINE 25 MG CAP PO PRN (09:42)
[2018-10-29] MEDS: SENNOSIDES/DOCUSATE SODIUM TAB PO SCH ×2 (10:55→20:15)
[2018-10-29] MEDS: PATCH REMOVAL 1 EA PATCH TD SCH (10:55)
[2018-10-29] MEDS: ENOXAPARIN 40 MG/0.4 ML SYR SC SCH (10:56)
--- NOTE | 2018-10-29 12:34 | HOSPPROG ---
Hospitalist Progress Note Assessment/Plan: # Left empyema, likely Streptococcus: s/p VATS decortication x2, most recent - changed to Amoxicillin. FU Dr. Rodgers - pt communicated with parents and they do not recall a specific PCN-allergy -chest tubes out. FU with Dr. Sears #Right apical PTX: resolved #R pleural effusion s/p thora - not c/w empyema #Acute hypoxic resp insufficiency: due to above. Will need small amount O2 at DC # ABLA s/p 1U PRBC #Sepsis: resolved #Diet: regular #DVT ppx: Lovenox Disp: can DC tomorrow if clinically stable Subjective: feeling better now chest tubes out Objective: Vital Signs Temp Pulse Resp BP Pulse Ox 36.9 C 77 16 115/81 H 94 10/29/18 08:55 10/29/18 08:55 10/29/18 08:55 10/29/18 08:55 10/29/18 08:55 Laboratory Results 10/28/18 04:35 10/23/18 18:04 10/28/18 10/29/18 10/30/18 05:59 05:59 05:59 Intake Total 500 1500 Output Total 40 Balance 500 1460 PT 16.4 SEC (12.0-15.0) H 10/23/18 18:04 INR 1.38 (0.83-1.16) H 10/23/18 18:04 - Time Spent With Patient Time Spent with Patient: greater than 35 minutes Time Spent with Patient: Greater than 35 minutes spent on this patients care, greater than 50% of time spent counseling, educating, and coordinating care regarding the above mentioned plan. - Physical Exam Constitutional: no apparent distress Eyes: PERRL Ears, Nose, Mouth, Throat: moist mucous membranes Cardiovascular: regular rate and rhythym Respiratory: no respiratory distress Musculoskeletal: other (left chest tube site dressed, CDI) Neurologic: AAOx3, CN II-XII Intact Psychiatric: interacting appropriately ICD10 Worksheet Patient Problems: Problems Problem Status Onset Bilateral pleural effusion Acute Dysuria Acute Hypoxia Acute Pleurisy with effusion Acute Acute appendicitis Acute
--- NOTE | 2018-10-29 13:17 | PCMIDPN ---
Assessment/Plan: Assessment: Left-sided empyema secondary to probable Streptococcus anginosus group. Patient continues on oral amoxicillin after having a 2nd VATS procedure.. Clinically the patient appears to be improved. Chest tubes are removed as of yesterday. White count is decreased. Plan: 1. Continue oral amoxicillin at present dose. 2. Prepare for likely discharge tomorrow. 3. Suspect that patient will need 14 days of treatment with oral amoxicillin following final VATS procedure. Subjective: Patient is resting in her hospital bed. She denies any new complaint. Feels much better since chest tube was removed yesterday. No complaints of fevers or chills. Objective: Amoxicillin # 2 Vital Signs Temp Pulse Resp BP Pulse Ox 36.9 C 77 16 115/81 H 94 10/29/18 08:55 10/29/18 08:55 10/29/18 08:55 10/29/18 08:55 10/29/18 08:55 Microbiology 10/22/18 14:00 Gram Stain - Final Pleural Fluid - Aspirate Anaerobic Culture - Final Laboratory Results 10/28/18 04:35 10/23/18 18:04 10/28/18 10/29/18 10/30/18 05:59 05:59 05:59 Intake Total 500 1500 Output Total 40 Balance 500 1460 - Physical Exam General Appearance: WD/WN, alert, no apparent distress, thin, non-toxic Respiratory: lungs clear, normal breath sounds, No respiratory distress Cardiac/Chest: regular rate, rhythm, No tachycardia Skin: normal color, warm/dry, No rash Neuro/Psych: alert, normal mood/affect, oriented x 3 ICD10 Worksheet Patient Problems: Problems Problem Status Onset Bilateral pleural effusion Acute Dysuria Acute Hypoxia Acute Pleurisy with effusion Acute Acute appendicitis Acute
--- NOTE | 2018-10-29 14:22 | PDHOMEO2F ---
Home Oxygen Face to Face Home Orders: I certify that a physician or a nurse practitioner or physician's human resources office assistant has had a [id number] encounter with this patient on the date of this order due to the diagnosis listed, which relates to the primary reason the patient requires home oxygen. Alternative treatments have been tried, or considered, and deemed ineffective. It is anticipated that supplemental oxygen will result in improvement with treatment. Home oxygen qualifying diagnosis: Acute hypoxia Home oxygen secondary diagnosis: Empyema SpO2 on room air (%): 86 Frequency of home oxygen needed: with activity Home oxygen liters per minute: 1.5 Home oxygen delivery device: nasal cannula Concentrator: Yes E-tanks for mobility and back up: Yes If ordering portable O2, is the patient mobile in the home?: Yes I certify that, based on these findings, the home oxygen is medically necessary for this patient for the following length of time. Length of time home oxygen needed: 99 years
[2018-10-29] MEDS: LIDOCAINE 4%/MENTHOL 1% PATCH TD SCH (20:15)
[2018-10-30] MEDS: IBUPROFEN 600 MG TAB PO SCH ×3 (01:26→12:17)
[2018-10-30] MEDS: CYCLOBENZAPRINE 10 MG TAB PO PRN ×2 (01:33→10:47)
[2018-10-30] MEDS: LORazepam 1 MG TAB PO PRN (01:33)
[2018-10-30] MEDS: ACETAMINOPHEN 500 MG TAB PO SCH ×2 (04:50→12:16)
[2018-10-30] MEDS: oxyCODONE IR 5 MG TAB PO PRN (06:28)
--- NOTE | 2018-10-30 08:27 | SOAPPROG ---
SOAP Progress Note Assessment/Plan: Assessment: 28yo F s/p L VATS, decort c CT placement s/p re-do, 2 large bore CTs now - VSS, afebrile, has weaned off of oxygen - dressings have not saturated through. Will plan to change them prior to discharge today. - pain is well controlled on oral narcotics. - discussed activity and lifting restrictions, have her follow up next week for staple removal. Plan: 10/19/18 08:48 10/24/18 07:36 10/25/18 11:59 10/26/18 12:37 10/29/18 09:34 10/30/18 08:26 Subjective: Each day feels a little bit better, still having some tenderness in the left chest. Objective: Vital Signs Temp Pulse Resp BP Pulse Ox 37.1 C 82 18 106/57 L 91 L 10/29/18 23:09 10/29/18 23:09 10/29/18 23:09 10/29/18 23:09 10/29/18 23:09 Microbiology 10/23/18 17:21 Gram Stain - Final Lung - Left Lower Lobe 10/23/18 16:30 Gram Stain - Final Chest - Aspirate 10/22/18 14:00 Gram Stain - Final Pleural Fluid - Aspirate Anaerobic Culture - Final Laboratory Results 10/28/18 04:35 10/23/18 18:04 10/29/18 10/30/18 10/31/18 05:59 05:59 05:59 Intake Total 1500 500 Output Total 40 Balance 1460 500 PT 16.4 SEC (12.0-15.0) H 10/23/18 18:04 INR 1.38 (0.83-1.16) H 10/23/18 18:04 ICD10 Worksheet Patient Problems: Problems Problem Status Onset Bilateral pleural effusion Acute Dysuria Acute Hypoxia Acute Pleurisy with effusion Acute Acute appendicitis Acute
[2018-10-30 08:54] VITALS: BP 98/60
[2018-10-30] MEDS: PATCH REMOVAL 1 EA PATCH TD SCH (09:15)
[2018-10-30] MEDS: ENOXAPARIN 40 MG/0.4 ML SYR SC SCH (09:16)
--- NOTE | 2018-10-30 10:44 | PCMIDPN ---
Assessment/Plan: # Large Left sided empyema s/p VATs 10/17 and repeat VATs and decort on 10/23 ; only gram stain positive from 10/17 but has not grown so far. Appearance most c/ w strep. All path c/w infection. Clinically much improved and chest tubes out --dc on 1 more week amoxicillin 500mg PO BID --fu with ID next week, appt in tab --dc ok from ID standpoint Microbiology 10/23 Pleural fluid: gram stain neg; Cx: NGTD 10/23 Lung tissue gram stain neg; cx: NGTD 10/17 Lung - Tissue Gram Stain : small GPCs, small chains; Cx NGTD 10/15 Thoracic Fluid - Aspirate: gram stain neg; Cx NGTD 10/13 Blood Cx (2): Neg HIV neg Subjective: feeling better and ready to go home Objective: Vital Signs Temp Pulse Resp BP Pulse Ox 36.7 C 64 16 98/60 L 92 10/30/18 08:00 10/30/18 08:00 10/30/18 08:00 10/30/18 08:00 10/30/18 08:00 Microbiology 10/23/18 17:21 Mycobacterial Smear (JOANNE) - Final Lung - Left Lower Lobe 10/23/18 16:30 Mycobacterial Smear (JOANNE) - Final Chest - Aspirate 10/15/18 16:00 Mycobacterial Smear (JOANNE) - Final Thoracic Fluid - Aspirate 10/23/18 17:21 Gram Stain - Final Lung - Left Lower Lobe 10/23/18 16:30 Gram Stain - Final Chest - Aspirate 10/22/18 14:00 Gram Stain - Final Pleural Fluid - Aspirate Anaerobic Culture - Final Laboratory Results 10/28/18 04:35 10/23/18 18:04 10/29/18 10/30/18 10/31/18 05:59 05:59 05:59 Intake Total 1500 500 Output Total 40 Balance 1460 500 - Physical Exam General Appearance: alert, no apparent distress Respiratory: other (fair airmovement L hemithorax. Dressing in place over L chest wall CT, not saturated), No accessory muscle use Neck: supple Extremities: No pedal edema Skin: pallor, No rash Neuro/Psych: alert, normal mood/affect, oriented x 3 - Time Spent With Patient Time Spent with Patient: greater than 25 minutes Time Spent with Patient: Greater than 25 minutes spent on this patients care, greater than 50% of time spent counseling, educating, and coordinating care regarding the above mentioned plan. ICD10 Worksheet Patient Problems: Problems Problem Status Onset Bilateral pleural effusion Acute Dysuria Acute Hypoxia Acute Pleurisy with effusion Acute Acute appendicitis Acute
[2018-10-30] MEDS: SENNOSIDES/DOCUSATE SODIUM TAB PO SCH (10:48)
--- NOTE | 2018-10-30 12:29 | ASMTLACE ---
LACE Length of stay for Answers: 14 days or more current admission Acuity / Level of Answers: Yes Care: Did the patient have an inpatient admission? # of Emergency department Answers: 1-2 visits in the last 6 months Social determinants Answers: Mental health diagnosis (anxiety, depression, pers onality disorders, etc.) Score: 14 Date Signed: 10/30/2018 12:28 PM Electronically Signed By:ARNEL Sandoval
--- NOTE | 2018-10-30 14:57 | ASMTCMCOM ---
CM Note CM Note Notes: Pt medically stable for d/c on oral antibiotics and ID follow up next week. Pt friends to transport home. Date Signed: 10/30/2018 02:56 PM Electronically Signed By:ARNEL Sandoval
--- NOTE | 2018-10-30 17:29 | GDS ---
[f rep st] DISCHARGE SUMMARY IN HOSPITAL CONSULTANTS: Infectious Disease, General Surgery. DISCHARGE DIAGNOSIS: Left-sided empyema status post VATS and chest tube. HISTORY OF PRESENT ILLNESS: The patient is a pleasant 28-year-old female who presented to the [facility] on 10/13/2018, with complaints of shortness of breath prior to presentation here , she had been diagnosed with an upper respiratory infection and treated with ciprofloxacin and predn isone. Upon initial assessment, she was found to have bilateral pleural effusions, left being greate r than the right. She subsequently underwent thoracentesis and was ultimately diagnosed with empyema . The patient underwent her initial VATS procedure on 10/17/2018, and then had a repeat on 9, with decortication. Cultures were negative, but it was felt that her presentation was most likely consistent with strep. She improved with antibiotic therapy and ultimately had her chest tube remov ed. Her course was complicated by a pneumothorax, which resolved. Her case was reviewed with Infect ious Disease today and it was recommended to continue with 7 additional days of amoxicillin at 500 mg twice a day. She will have short-term followup with Infectious Disease as well as surgery. I did p rovide her with a prescription for oxycodone and Flexeril for pain control. I also gave her prescrip tion for Ativan for anxiety, which is a preexisting diagnosis prior to coming into the hospital. DISCHARGE PHYSICAL EXAMINATION: VITAL SIGNS: Temperature 36.7, blood pressure 98/60, heart rate 64, respirations 16, saturating 92% on room air. GENERAL: Patient appears comfortable. She was restin g comfortably in bed. HEART: Regular, no murmurs appreciated. LUNGS: Normal respiratory effort, n o significant wheezing appreciated. ABDOMEN: Nondistended. : No Coleman catheter in place. NOTABLE STUDIES: CT scan of the chest from 10/13/2018, showed no evidence of pulmonary embolism, harinder ateral pleural effusion. White blood cell count 9, hemoglobin 7.9, platelets 598. Sodium 134, potas sium 4.6, chloride 100, bicarb 27, BUN 9, creatinine 0.5, glucose 89. Blood cultures from 10/13/2018 , negative. DISCHARGE MEDICATIONS: 1. Amoxicillin 500 mg twice a day for 7 additional days. 2. Cyclobenzaprine 5 mg 3 times a day as needed for muscle spasms. 3. Oxycodone IR 5 mg 1-2 tabs every 4-6 hours as needed for moderate to severe pain. 4. Ativan 1 mg twice a day as needed for anxiety. DISCHARGE INSTRUCTIONS: Patient will have followup with Infectious Disease as well as General Surger y. I have also recommended a followup visit with her primary care provider, [facility], in 1-2 weeks' time for reassessment. 40 minutes of time dedicated to discharge efforts. /[id number]/MODL
--- NOTE | 2018-11-02 14:13 | PQFORM ---
PHYSICIAN QUERY FORM Needs Your Response This query form is being sent to you to assure this patient record is coded properly. Please respond to the question below: HABITAT MANAGEMENT COORDINATOR QUESTION: Dear Dr. Arambula, Sepsis was documented within the Hospitalist Progress notes dated 10/18-10/29, and in the [employer] Progress notes dated 10/24-10/27. Clinical indicators: WBC on 10/13=26.47, 10/14=27.55, 10/15=29.53. Blood Pressure on 10/13=80, 10/14=60, =59. Based on the clinical indicators and your precessional judgement please clarify the status of 'sepsis" by selecting on of the options below. __x__The diagnosis of sepsis was confirmed and present on admission The diagnosis of sepsis was confirmed and NOT present on admission Sepsis was ruled out Other more appropriate diagnosis (please specify) Clinically unable to determine Thank you [facility] HIM/Coding Dept. INSTRUCTIONS FOR RESPONSE: Answer question by clicking on the "Edit Document" button. Move cursor to area below the stars. When complete, hit "Save." Click on the "Sign" button, then click "Sign" again. Type in your PIN and hit "Enter." Sepsis confirmed. [facility]
== END 2018-10-30 15:03 | disposition home or self-care (01) | DRG 710 ==
LOC: INTOOBSV 13:04 → F3E 14:42 → OBSVTOIN 10-14 15:13 → F2N 10-17 15:30 → F3E 10-19 18:13 → F2N 10-23 17:19 → F3N 10-27 15:20
PROVIDERS: ADMIT Internal Medicine; ATTEND Internal Medicine
PROC: 0W9B3ZX Drainage of Left Pleural Cavity, Percutaneous Approach, Diagnostic (ICD-10-PCS; 2018-10-15)
PROC: 0BBL4ZX Excision of Left Lung, Percutaneous Endoscopic Approach, Diagnostic (ICD-10-PCS; principal; 2018-10-17 09:45)
PROC: 0W993ZX Drainage of Right Pleural Cavity, Percutaneous Approach, Diagnostic (ICD-10-PCS; 2018-10-22)
PROC: 0BTJ4ZZ Resection of Left Lower Lung Lobe, Percutaneous Endoscopic Approach (ICD-10-PCS; 2018-10-23 14:15)
DX: A40.8 Other streptococcal sepsis (principal); J86.9 Pyothorax without fistula; J90 Pleural effusion, not elsewhere classified; B95.5 Unspecified streptococcus as the cause of diseases classified elsewhere; J95.811 Postprocedural pneumothorax; E86.9 Volume depletion, unspecified; F41.9 Anxiety disorder, unspecified; Z88.0 Allergy status to penicillin
CPT/HCPCS: 82784-90; 84134-90; 96365; G0378; J0456; J0696; J1100; J1170; J1200; J1650; J1885; J2060; J2250; J2270; J2370; J2405; J2704; J2710; J3010; J7613; P9016; P9040; Q9967

== ENCOUNTER 2019-01-07 00:33 | Observation (INO) | payer MEDICAID | END 2019-01-08 17:52 | disposition home or self-care (01) | LOC: FOB 06:16 ==